=== PATIENT | male | born 1940 | race Caucasian/White ===

== ENCOUNTER 2016-06-10 10:36 | Emergency (ER) | payer MEDICARE, OTHER ==
[~2016-06-10 10:36] MED LIST: ACET500C PO; ASPI81TA83 OR; ASPI81TA85 PO; CALCIUM/VITAMIN D PO; CALCTAB28 PO; CHLO125TA PO; CHLORTHALIDONE PO; CO Q200C PO; COLA100C PO; COLA100C2 PO; COQ10 PO; DIGO0.12 PO; ECOT325T5 PO; ELIQ5TAB PO; GARLPOW PO; GLUC500T3 PO; GLUCTAB6 PO; KEPP500T6 PO; LISI20TA5 PO; LISI40TAB PO; METF500T PO; METFORMIN PO; MULTIVIT PO; NITR0.4S SL; NITR4TASL SL; PLAV75TA2 OR; PRAV20TA2 PO; PRAVASTATIN PO; SPIR25TA2 PO; SPIRPOW PO; VIMP100T PO; VITMTA PO; WARF-20 PO; WARF-58 PO
[2016-06-10 12:20] LABS: BASO % 0.5 % (0.0-1.0); EOS # 0.4 K/mm3 (0.0-0.50); EOS % 3.7 % (0.0-3.0); LARGE UNSTAINED CELL # 0.2 K/mm3 (0.0-0.4); LARGE UNSTAINED CELL % 1.6 % (0.0-4.0); LYMPH # 3.2 K/mm3 (1.5-4.5); MEAN CORPUSCULAR HGB CONC 35.8 g/dl (32.0-36.5); MEAN CORPUSCULAR VOLUME 83.9 fl (80.0-96.0); MONO # 0.7 K/mm3 (0.0-0.8); MONO % 6.5 % (0.0-5.0); NEUTROPHILS # 5.8 K/mm3 (1.8-7.7); NEUTROPHILS % 57.8 % (36.0-66.0); PLATELET COUNT, AUTOMATED 159 k/mm3 (150-450); RED CELL DISTRIBUTION WIDTH 13.2 % (11.5-14.5); WHITE BLOOD COUNT 10.1 K/mm3 (4.0-10.0)
[2016-06-10 12:27] LABS: INR 1.08
--- NOTE | 2016-06-10 12:42 | REP ---
CT HEAD WITHOUT CONTRAST: HISTORY: Headache. COMPARISON: 09/13/2015. Areas of decreased attentuation are present in the periventricular white matter. This represents small vessel ischemic disease. There is on intraparenchymal hemorrhage, mass, or midline shift. The ventricular system and cortical sulci as well as subarachnoid space in the posterior fossa are dilated consistent with mild volume loss. There has been resolution of the previously noted subdural fluid collection present over the right cerebral hemisphere. A mel hole is present in the right parietal bone. The visualized sinuses are clear. IMPRESSION: 1. Small vessel ischemic disease. 2. Mild volume loss. Signed by Nestor Melendez MD 06/10/2016 12:43 P
--- NOTE | 2016-06-10 12:55 | EDDOCDS ---
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 Denies visual changes, nausea. Adult Sepsis Screening: The patient does not have new or worsening altered mentation. Patient's respiratory rate is less than 22. Systolic blood pressure is greater than 100. Patient has a qSOFA score of 0- Negative Sepsis Screen. Suicide/Homicide risk assessment- the patient denies having any suicidal and/or homicidal ideations and does not present with any other emotional, behavioral or mental health complaints. Status: Patient is not a patient financial services specialist or dependent. Transition of care: patient was not received from another setting of care. 10:49 Acuity: BILL Level 3 ttb 10:49 Method Of Arrival: Walkin/Carried/Asstd ttb Triage Assessment: 10:56 General: Appears in no apparent distress, well nourished, well groomed, Behavior is ttb appropriate for age, cooperative, pleasant. Pain: Location: frontal headache Pain currently is 7 out of 10 on a pain scale. Neurological: Level of Consciousness is awake, alert, Moves all extremities. Speech is normal, Facial symmetry appears normal, Denies weakness blurred vision dizziness, numbness photophobia diplopia, Reports headache. Cardiovascular: Chest pain is denied. Respiratory: No deficits noted. Airway is patent Respiratory effort is even, unlabored. GI: Denies nausea, vomiting, pain. Derm: Skin is normal. Injury Description: No known injury. Historical: - Allergies: no known allergies; - Home Meds: 1. Eliquis 5 mg oral tab 1 tab 2 times per day (Last dose: 06/09/2016 20:00) 2. Co Q-10 200 mg oral cap daily (Last dose: 06/09/2016 08:00) 3. metformin 500 mg Oral tab 1 tab daily (Last dose: 06/09/2016 08:00) 4. aspirin 81 mg Oral chew 1 tab once daily 5. Calcium + Vitamin D Oral 300 mg twice a day 6. spironolactone 12.5 mg Oral once daily (Last dose: 06/09/2016 08:00) 7. multivitamin Oral tab 1 tab daily (Last dose: 06/09/2016 08:00) 8. Coumadin 4 mg wednesday and 3 mg of the ,stopped coumadin on Oral 9. digoxin 125 mcg Oral tab 1 tab once daily (Last dose: 06/09/2016 08:00) 10. NitroQuick SL 0.4 mg as needed (Last dose: Unknown) 11. pravastatin 60 mg oral nightly (Last dose: 06/09/2016 20:00) 12. Keppra 500 mg Oral tab 1 tab 2 times per day 13. lisinopril 40 mg Oral tab 1 tab nightly (Last dose: 06/09/2016 20:00) 14. glucosamine-chondroitin 1,500-1,200 mg/30 mL oral liqd daily (Last dose: 06/09/2016 20:00) 15. Chlorthalidone 12.5 mg Oral once daily (Last dose: 06/09/2016 20:00) 16. Colace 100 mg oral cap 1 cap once daily 17. magnesium oxide 400 mg Oral cap daily (Last dose: 06/09/2016 20:00) - PMHx: TIA; Hypertension; Hypercholesterolemia; Diabetes - NIDDM: controlled; CAD; Atrial Fib; "brain bleed"; - PSHx: CABG; Mitral Valve Repair; pacer; mel hole July 2015; - Social history: Smoking status: Patient states was never smoker of tobacco. Patient/guardian denies using alcohol, street drugs, No barriers to communication noted, The patient speaks fluent Scottish, Speaks appropriately for age. - Family history: Not pertinent. - : The pt / caregiver states he / she is on anticoagulants: Eliquis Home medication list is obtained from the patient. - Exposure Risk Screening:: None identified. Screenin:53 Screening information is obtained from the patient. Fall risk: No risks identified. ml6 Assistance ADL's: requires no assistance with activities of daily living. Abuse/DV Screen: The patient / caregiver reports he/she is: not in a situation that causes fear, pain or injury. Nutritional screening: No deficits noted. Advance Directives: Currently, there is no health care proxy. home support is adequate. Assessment: 11:02 General: Appears in no apparent distress, comfortable, Behavior is appropriate for age, ml6 cooperative. Pain: Location: forehead Pain currently is 6 out of 10 on a pain scale. Pain does not radiate. Quality of pain is described as aching, Pain began 3 hours ago Is continuous. Neurological: No deficits noted. Level of Consciousness is awake, alert, Oriented to person, place, time, Relationship Manager are equal bilaterally Moves all extremities. Full function Gait is steady, Speech is normal, Facial symmetry appears normal, Pupils are PERRLA. Cardiovascular: No deficits noted. Respiratory: No deficits noted. 12:00 Reassessment: Patient appears in no apparent distress at this time. Patient denies pain ml6 at this time. Patient states feeling better. Patient states symptoms have improved. 12:53 General: Appears in no apparent distress, comfortable, Behavior is appropriate for age, ml6 cooperative. Pain: Denies pain. Neurological: No deficits noted. Level of Consciousness is awake, alert, Oriented to person, place, time, Relationship Manager are equal bilaterally Moves all extremities. Full function Gait is steady, Speech is normal, Facial symmetry appears normal, Pupils are PERRLA. Cardiovascular: No deficits noted. Capillary refill < 3 seconds is brisk in bilateral fingers toes. Respiratory: No deficits noted. Airway is patent Respiratory effort is even, unlabored, Respiratory pattern is regular, symmetrical, Breath sounds are clear bilaterally. GI: No deficits noted. Vital Signs: 10:42 BP 151 / 77 RA Sitting (auto/reg); Pulse 75; Resp 18; Temp 97.0(O); Pulse Ox 98% on jrd R/A; Weight 90.72 kg (R); Height 5 ft. 10 in. (177.80 cm) (R); Pain 8/10; 10:42 Body Mass Index 28.70 (90.72 kg, 177.80 cm) [facility] Vitals: 10:42 Log In Time: June 10, 2016 at 10:28. [facility] ED Course: 10:42 Patient visited by Hayder Greenwood PCA. jrd 10:42 Patient moved to Waiting jrd 10:43 Patient visited by Hayder Greenwood PCA. jrd 10:43 Patient moved to Pre RCE jrd 10:51 Triage Initiated ttb 10:57 Patient moved to Triage 2 ttb 11:25 [facility] Payment Agreement was scanned into [employer] and attached to record. lg 11:34 Patient moved to 10 cc10 11:45 Patient visited by Jennifer Myrick RN. ms18 11:45 Accompanied by Significant Other, Patient has correct armband on for positive ms18 identification. Placed in gown. Bed in low position. monitoring manager on. Pulse ox on. NIBP on. Property :Personal belongings accompany Pt. 12:04 Patient visited by Tg Crabtree RN. [facility] [place]:04 Digoxin Level Sent. [facility] [place] 12:04 PTT Sent. [facility] [place] 12:04 PT/INR Sent. [facility] [place] 12:04 BMP Sent. [facility] [place] 12:04 CBC with Diff Sent. [facility] [place] 12:04 Inserted saline lock: 20 gauge in right antecubital area and blood collected. The [facility] [place] patient tolerated the procedure well. Labs drawn. (by ED staff). Sent per order to lab. 12:28 William Christensen FNP is [facility]. ke 12:28 Patient visited by William Christensen FNP. ke 12:28 Patient visited by William Christensen FNP. ke 12:51 Discontinued IV bleeding controlled, pressure dressing applied, No redness/swelling at ml6 site. No procedures done that require assistance. 12:52 CT Head Without Contrast Returned. EDMS 12:53 Discontinued IV bleeding controlled, pressure dressing applied, No redness/swelling at ml6 site. 12:54 The patient / caregiver is instructed regarding the plan of care and ED course. ml6 Order Results: Lab Order: CBC with Diff; SPEC'M 06/10/16 12:01 Test: WHITE BLOOD COUNT; Value: 10.1; Range: 4.0-10.0; Abnormal: Above high normal; Units: K/mm3; Status: F Test: RED BLOOD COUNT; Value: 5.51; Range: 4.30-6.10; Units: M/mm3; Status: F Test: HEMOGLOBIN; Value: 16.6; Range: 14.0-18.0; Units: g/dl; Status: F Test: HEMATOCRIT; Value: 46.3; Range: 42.0-52.0; Units: %; Status: F Test: MEAN CORPUSCULAR VOLUME; Value: 83.9; Range: 80.0-96.0; Units: fl; Status: F Test: MEAN CORPUSCULAR HEMOGLOBIN; Value: 30.0; Range: 27.0-33.0; Units: pg; Status: F Test: MEAN CORPUSCULAR HGB CONC; Value: 35.8; Range: 32.0-36.5; Units: g/dl; Status: F Test: RED CELL DISTRIBUTION WIDTH; Value: 13.2; Range: 11.5-14.5; Units: %; Status: F Test: PLATELET COUNT, AUTOMATED; Value: 159; Range: 150-450; Units: k/mm3; Status: F Test: NEUTROPHILS %; Value: 57.8; Range: 36.0-66.0; Units: %; Status: F Test: LYMPH %; Value: 30.0; Range: 24.0-44.0; Units: %; Status: F Test: MONO %; Value: 6.5; Range: 0.0-5.0; Abnormal: Above high normal; Units: %; Status: F Test: EOS %; Value: 3.7; Range: 0.0-3.0; Abnormal: Above high normal; Units: %; Status: F Test: BASO %; Value: 0.5; Range: 0.0-1.0; Units: %; Status: F Test: LARGE UNSTAINED CELL %; Value: 1.6; Range: 0.0-4.0; Units: %; Status: F Test: NEUTROPHILS #; Value: 5.8; Range: 1.8-7.7; Units: K/mm3; Status: F Test: LYMPH #; Value: 3.2; Range: 1.5-4.5; Units: K/mm3; Status: F Test: MONO #; Value: 0.7; Range: 0.0-0.8; Units: K/mm3; Status: F Test: EOS #; Value: 0.4; Range: 0.0-0.50; Units: K/mm3; Status: F Test: BASO #; Value: 0.0; Range: 0.0-0.2; Units: K/mm3; Status: F Test: LARGE UNSTAINED CELL #; Value: 0.2; Range: 0.0-0.4; Units: K/mm3; Status: F Lab Order: PT/INR; SPEC'M 06/10/16 12:01 Test: PROTHROMBIN TIME; Value: 14.1; Range: 12.3-14.5; Units: SECONDS; Status: F Test: INR; Value: 1.08; Status: F Test Note: ; THERAPUTIC HUMAN INR VALUES INDICATIONS NORMAL RANGES PROPHYLAXIS/TREATMENT OF: VENOUS THROMBOSIS 2.0-3.0 PULMONARY EMBOLISM 2.0-3.0 PREVENTION OF SYSTEMIC EMBOLISM FROM: TISSUE HEART VALVES 2.0-3.0 ACUTE MYOCARDIAL INFARCTION 2.0-3.0 VALVULAR HEART DISEASE 2.0-3.0 ATRIAL FIBRILLATION 2.0-3.0 MECHANICAL VALVES(HIGH RISK) 2.5-3.5 RECURRENT MYOCARDIAL INFARCTION 2.5-3.5 Lab Order: PTT; SPEC'M 06/10/16 12:01 Test: PARTIAL THROMBOPLASTIN TIME; Value: 29.9; Range: 26.6-37.1; Units: SECONDS; Status: F Radiology Order: CT Head Without Contrast Test: CT Head Without Contrast REASON FOR EXAMINATION: headache eval for ich; CT HEAD WITHOUT CONTRAST:; ; HISTORY: Headache.; ; COMPARISON: 09/13/2015.; ; Areas of decreased attentuation are present in the periventricular white matter.; This represents small vessel ischemic disease. There is on intraparenchymal; hemorrhage, mass, or midline shift. The ventricular system and cortical sulci as; well as subarachnoid space in the posterior fossa are dilated consistent with; mild volume loss. There has been resolution of the previously noted subdural; fluid collection present over the right cerebral hemisphere. A mel hole is; present in the right parietal bone. The visualized sinuses are clear.; ; IMPRESSION:; ; 1. Small vessel ischemic disease.; ; 2. Mild volume loss.; ; ; Signed by; Nestor Melendez MD 06/10/2016 12:43 P; Outcome: 12:41 Discharge ordered by Provider. leatha 12:54 Discharge Assessment: patient administered narcotics - no. The following High Risk ml6 Discharge criteria are identified: None. Discharged to home ambulatory, with significant other. Condition: stable. Discharge instructions given to patient, Instructed on discharge instructions, follow up and referral plans. medication usage, Demonstrated understanding of instructions, medications, Pt was receptive of discharge instructions/ teaching. Prescriptions given X 1. No special radiology studies were completed. 12:54 Patient left the ED. ml6 Signatures: Dispatcher [employer] EDMS Tg Crabtree, RN RN Althea Kumar, William Blackmon lg, INDUSTRIAL TRUCK DRIVER INDUSTRIAL TRUCK DRIVER Michael Barber RN RN mlb1 Obi Herman RN RN ml6 Kanika Leung, RN RN ttb Leno Davis, PA-C PA-C Jennifer Ashford RN RN ms18 Hayder Greenwood PCA SAMPLE GRADER jrd MTDD
--- NOTE | 2016-06-10 12:55 | EDDOCDS ---
Physician Documentation [facility] Name: iLam Nayak Age: 75 yrs Sex: Male : 1940 Arrival Date: 06/10/2016 Time: 10:36 Bed 10 Private MD: Disposition: 06/10/16 12:41 Discharged to Home/Self Care. Impression: Headache, Acute frontal sinusitis. - Condition is Stable. - Discharge Instructions: General Headache Without Cause, Sinusitis, Adult. - Prescriptions for Mucinex 600 mg - take 1 tablet by ORAL route 2 times per day; 30 tablet. - Medication Reconciliation, Local Pharmacy Hours form. - Follow up: Private Physician; When: 4 - 5 days; Reason: Recheck today's complaints, Continuance of care. - Problem is an ongoing problem. - Symptoms are unchanged. Historical: - Allergies: no known allergies; - Home Meds: 1. Eliquis 5 mg oral tab 1 tab 2 times per day (Last dose: 06/09/2016 20:00) 2. Co Q-10 200 mg oral cap daily (Last dose: 06/09/2016 08:00) 3. metformin 500 mg Oral tab 1 tab daily (Last dose: 06/09/2016 08:00) 4. aspirin 81 mg Oral chew 1 tab once daily 5. Calcium + Vitamin D Oral 300 mg twice a day 6. spironolactone 12.5 mg Oral once daily (Last dose: 06/09/2016 08:00) 7. multivitamin Oral tab 1 tab daily (Last dose: 06/09/2016 08:00) 8. Coumadin 4 mg wednesday and 3 mg the ,stopped coumadin on Oral 9. digoxin 125 mcg Oral tab 1 tab once daily (Last dose: 06/09/2016 08:00) 10. NitroQuick SL 0.4 mg as needed (Last dose: Unknown) 11. pravastatin 60 mg oral nightly (Last dose: 06/09/2016 20:00) 12. Keppra 500 mg Oral tab 1 tab 2 times per day 13. lisinopril 40 mg Oral tab 1 tab nightly (Last dose: 06/09/2016 20:00) 14. glucosamine-chondroitin 1,500-1,200 mg/30 mL oral liqd daily (Last dose: 06/09/2016 20:00) 15. Chlorthalidone 12.5 mg Oral once daily (Last dose: 06/09/2016 20:00) 16. Colace 100 mg oral cap 1 cap once daily 17. magnesium oxide 400 mg Oral cap daily (Last dose: 06/09/2016 20:00) - PMHx: TIA; Hypertension; Hypercholesterolemia; Diabetes - NIDDM: controlled; CAD; Atrial Fib; "brain bleed"; - PSHx: CABG; Mitral Valve Repair; pacer; mel hole July 2015; - Social history: Smoking status: Patient states was never smoker of tobacco. Patient/guardian denies using alcohol, street drugs, No barriers to communication noted, The patient speaks fluent Czech, Speaks appropriately for age. - Family history: Not pertinent. - : The pt / caregiver states he / she is on anticoagulants: Eliqu Home medication list is obtained from the patient. - Exposure Risk Screening:: None identified. Vital Signs: 06/10 10:42 BP 151 / 77 RA Sitting (auto/reg); Pulse 75; Resp 18; Temp 97.0(O); Pulse Ox 98% on jrd R/A; Weight 90.72 kg / 200 lbs (R); Height 5 ft. 10 in. (177.80 cm) (R); Pain 8/10; 10:42 Body Mass Index 28.70 (90.72 kg, 177.80 cm) jrd MDM: 11:25 [facility] Payment Agreement was scanned into [employer] and attached to record. lg 11:38 IV Saline Lock ordered. br1 11:38 Production Generalist/Pulse Ox/q 30 min VS ordered. br1 11:39 CT Head Without Contrast Ordered. EDMS 11:39 CBC with Diff Ordered. EDMS 11:39 BMP Ordered. EDMS 11:39 PT/INR Ordered. EDMS 11:39 PTT Ordered. EDMS 11:39 Digoxin Level Ordered. EDMS Signatures: Dispatcher [employer] EDMS Althea Ventura, Reg Reg lg William Christensen, PRESS SETUP OPERATOR PRESS SETUP OPERATOR Michael Barber RN RN mlb1 Jose Kelly MD MD br1 Obi Herman RN RN ml6 Kanika Leung RN RN ttb The chart was reviewed and I authenticate all verbal orders and agree with the evaluation and treatment provided.Attachments: 11:25 [facility] Payment Agreement lg MTDD
[2016-06-10 13:01] LABS: ANION GAP 8 MEQ/L (8-16); BLOOD UREA NITROGEN 17 MG/DL (7-18); CALCIUM LEVEL 9.6 MG/DL (8.8-10.2); CARBON DIOXIDE LEVEL 27 MEQ/L (21-32); CHLORIDE LEVEL 105 MEQ/L (98-107); CREATININE FOR GFR 1.13 MG/DL (0.70-1.30); DIGOXIN LEVEL 0.6 NG/ML (0.5-2.0); GLOMERULAR FILTRATION RATE > 60.0 (>42); GLUCOSE, FASTING 140 MG/DL (83-110); POTASSIUM SERUM 4.4 MEQ/L (3.5-5.1); SODIUM LEVEL 140 MEQ/L (136-145)
--- NOTE | 2016-06-12 13:55 | EDDOCDS ---
Physician Documentation [facility] Name: Liam Nayak Age: 75 yrs Sex: Male : 1940 Arrival Date: 06/10/2016 Time: 10:36 Bed 10 Private MD: Disposition: 06/10/16 12:41 Discharged to Home/Self Care. Impression: Headache, Acute frontal sinusitis. - Condition is Stable. - Discharge Instructions: General Headache Without Cause, Sinusitis, Adult. - Prescriptions for Mucinex 600 mg - take 1 tablet by ORAL route 2 times per day; 30 tablet. - Medication Reconciliation, Local Pharmacy Hours form. - Follow up: Private Physician; When: 4 - 5 days; Reason: Recheck today's complaints, Continuance of care. - Problem is an ongoing problem. - Symptoms are unchanged. Historical: - Allergies: no known allergies; - Home Meds: 1. Eliquis 5 mg oral tab 1 tab 2 times per day (Last dose: 06/09/2016 20:00) 2. Co Q-10 200 mg oral cap daily (Last dose: 06/09/2016 08:00) 3. metformin 500 mg Oral tab 1 tab daily (Last dose: 06/09/2016 08:00) 4. aspirin 81 mg Oral chew 1 tab once daily 5. Calcium + Vitamin D Oral 300 mg twice a day 6. spironolactone 12.5 mg Oral once daily (Last dose: 06/09/2016 08:00) 7. multivitamin Oral tab 1 tab daily (Last dose: 06/09/2016 08:00) 8. Coumadin 4 mg wednesday and 3 mg the ,stopped coumadin on Oral 9. digoxin 125 mcg Oral tab 1 tab once daily (Last dose: 06/09/2016 08:00) 10. NitroQuick SL 0.4 mg as needed (Last dose: Unknown) 11. pravastatin 60 mg oral nightly (Last dose: 06/09/2016 20:00) 12. Keppra 500 mg Oral tab 1 tab 2 times per day 13. lisinopril 40 mg Oral tab 1 tab nightly (Last dose: 06/09/2016 20:00) 14. glucosamine-chondroitin 1,500-1,200 mg/30 mL oral liqd daily (Last dose: 06/09/2016 20:00) 15. Chlorthalidone 12.5 mg Oral once daily (Last dose: 06/09/2016 20:00) 16. Colace 100 mg oral cap 1 cap once daily 17. magnesium oxide 400 mg Oral cap daily (Last dose: 06/09/2016 20:00) - PMHx: TIA; Hypertension; Hypercholesterolemia; Diabetes - NIDDM: controlled; CAD; Atrial Fib; "brain bleed"; - PSHx: CABG; Mitral Valve Repair; pacer; mel hole July 2015; - Social history: Smoking status: Patient states was never smoker of tobacco. Patient/guardian denies using alcohol, street drugs, No barriers to communication noted, The patient speaks fluent Japanese, Speaks appropriately for age. - Family history: Not pertinent. - : The pt / caregiver states he / she is on anticoagulants: [employer] Home medication list is obtained from the patient. - Exposure Risk Screening:: None identified. Vital Signs: 06/10 10:42 BP 151 / 77 RA Sitting (auto/reg); Pulse 75; Resp 18; Temp 97.0(O); Pulse Ox 98% on jrd R/A; Weight 90.72 kg / 200 lbs (R); Height 5 ft. 10 in. (177.80 cm) (R); Pain 8/10; 10:42 Body Mass Index 28.70 (90.72 kg, 177.80 cm) jrd MDM: 11:25 [facility] [place] was scanned into [employer] and attached to record. lg 11:38 IV Saline Lock ordered. br1 11:38 Meteorological Engineer/Pulse Ox/q 30 min VS ordered. br1 11:39 CT Head Without Contrast Ordered. EDMS 11:39 CBC with Diff Ordered. EDMS 11:39 BMP Ordered. EDMS 11:39 PT/INR Ordered. EDMS 11:39 PTT Ordered. EDMS 11:39 Digoxin Level Ordered. EDMS 15:36 T-Sheet-- Draft Copy was scanned into [employer] and attached to record. gb Signatures: Dispatcher [employer] EDMS Domenica Walker, Reg Reg gb Althea Ventura, Reg Reg lg William Christensen, REFRIGERATION UNIT REPAIRER REFRIGERATION UNIT REPAIRER Michael Barber RN RN mlb1 Jose Kelly MD MD br1 Obi Herman, RN RN ml6 Kanika Leung RN RN ttb The chart was reviewed and I authenticate all verbal orders and agree with the evaluation and treatment provided.Attachments: 11:25 [facility] [place] Agreement lg 15:36 T-Sheet-- Draft Copy gb Chart Complete MTDD
--- NOTE | 2016-06-12 13:55 | EDDOCDS ---
Physician Documentation [facility] Name: Liam Nayak Age: 75 yrs Sex: Male : 1940 Arrival Date: 06/10/2016 Time: 10:36 Bed 10 Private MD: Disposition: 06/10/16 12:41 Discharged to Home/Self Care. Impression: Headache, Acute frontal sinusitis. - Condition is Stable. - Discharge Instructions: General Headache Without Cause, Sinusitis, Adult. - Prescriptions for Mucinex 600 mg - take 1 tablet by ORAL route 2 times per day; 30 tablet. - Medication Reconciliation, Local Pharmacy Hours form. - Follow up: Private Physician; When: 4 - 5 days; Reason: Recheck today's complaints, Continuance of care. - Problem is an ongoing problem. - Symptoms are unchanged. Historical: - Allergies: no known allergies; - Home Meds: 1. Eliquis 5 mg oral tab 1 tab 2 times per day (Last dose: 06/09/2016 20:00) 2. Co Q-10 200 mg oral cap daily (Last dose: 06/09/2016 08:00) 3. metformin 500 mg Oral tab 1 tab daily (Last dose: 06/09/2016 08:00) 4. aspirin 81 mg Oral chew 1 tab once daily 5. Calcium + Vitamin D Oral 300 mg twice a day 6. spironolactone 12.5 mg Oral once daily (Last dose: 06/09/2016 08:00) 7. multivitamin Oral tab 1 tab daily (Last dose: 06/09/2016 08:00) 8. Coumadin 4 mg wednesday and 3 mg the ,stopped coumadin on Oral 9. digoxin 125 mcg Oral tab 1 tab once daily (Last dose: 06/09/2016 08:00) 10. NitroQuick SL 0.4 mg as needed (Last dose: Unknown) 11. pravastatin 60 mg oral nightly (Last dose: 06/09/2016 20:00) 12. Keppra 500 mg Oral tab 1 tab 2 times per day 13. lisinopril 40 mg Oral tab 1 tab nightly (Last dose: 06/09/2016 20:00) 14. glucosamine-chondroitin 1,500-1,200 mg/30 mL oral liqd daily (Last dose: 06/09/2016 20:00) 15. Chlorthalidone 12.5 mg Oral once daily (Last dose: 06/09/2016 20:00) 16. Colace 100 mg oral cap 1 cap once daily 17. magnesium oxide 400 mg Oral cap daily (Last dose: 06/09/2016 20:00) - PMHx: TIA; Hypertension; Hypercholesterolemia; Diabetes - NIDDM: controlled; CAD; Atrial Fib; "brain bleed"; - PSHx: CABG; Mitral Valve Repair; pacer; mel hole July 2015; - Social history: Smoking status: Patient states was never smoker of tobacco. Patient/guardian denies using alcohol, street drugs, No barriers to communication noted, The patient speaks fluent Vietnamese, Speaks appropriately for age. - Family history: Not pertinent. - : The pt / caregiver states he / she is on anticoagulants: [employer] Home medication list is obtained from the patient. - Exposure Risk Screening:: None identified. Vital Signs: 06/10 10:42 BP 151 / 77 RA Sitting (auto/reg); Pulse 75; Resp 18; Temp 97.0(O); Pulse Ox 98% on jrd R/A; Weight 90.72 kg / 200 lbs (R); Height 5 ft. 10 in. (177.80 cm) (R); Pain 8/10; 10:42 Body Mass Index 28.70 (90.72 kg, 177.80 cm) jrd MDM: 11:25 [facility] [place] Agreement was scanned into [employer] and attached to record. lg 11:38 IV Saline Lock ordered. br1 11:38 Wildlife Veterinarian/Pulse Ox/q 30 min VS ordered. br1 11:39 CT Head Without Contrast Ordered. EDMS 11:39 CBC with Diff Ordered. EDMS 11:39 BMP Ordered. EDMS 11:39 PT/INR Ordered. EDMS 11:39 PTT Ordered. EDMS 11:39 Digoxin Level Ordered. EDMS 15:36 T-Sheet-- Draft Copy was scanned into [employer] and attached to record. gb Signatures: Dispatcher [employer] EDMS Domenica Walker, Reg Reg gb Althea Ventura, Reg Reg lg William Christensen, ASSISTANT BOOKKEEPER ASSISTANT BOOKKEEPER Michael Barber RN RN mlb1 Jose Kelly MD MD br1 Obi Herman, RN RN ml6 Kanika Leung RN RN ttb The chart was reviewed and I authenticate all verbal orders and agree with the evaluation and treatment provided.Attachments: 11:25 [facility] [place] Agreement lg 15:36 T-Sheet-- Draft Copy gb Chart Complete MTDD
--- NOTE | 2016-06-12 13:55 | EDDOCDS ---
Nurse's Notes [facility] Name: Liam Nayak Age: 75 yrs Sex: Male : 1940 Arrival Date: 06/10/2016 Time: 10:36 Bed 10 Private MD: Diagnosis: Headache;Acute frontal sinusitis Presentation: 06/10 10:49 Presenting complaint: Patient states: pt concerned with frontal headache 2 weeks -- ttb states it feels the same as when he had a "brain bleed" last year ( which required surgical intervention). Denies visual changes, nausea. Adult Sepsis Screening: The patient does not have new or worsening altered mentation. Patient's respiratory rate is less than 22. Systolic blood pressure is greater than 100. Patient has a qSOFA score of 0- Negative Sepsis Screen. Suicide/Homicide risk assessment- the patient denies having any suicidal and/or homicidal ideations and does not present with any other emotional, behavioral or mental health complaints. Status: Patient is not a banking services officer or dependent. Transition of care: patient was not received from another setting of care. 10:49 Acuity: BILL Level 3 ttb 10:49 Method Of Arrival: Walkin/Carried/Asstd ttb Triage Assessment: 10:56 General: Appears in no apparent distress, well nourished, well groomed, Behavior is ttb appropriate for age, cooperative, pleasant. Pain: Location: frontal headache Pain currently is 7 out of 10 on a pain scale. Neurological: Level of Consciousness is awake, alert, Moves all extremities. Speech is normal, Facial symmetry appears normal, Denies weakness blurred vision dizziness, numbness photophobia diplopia, Reports headache. Cardiovascular: Chest pain is denied. Respiratory: No deficits noted. Airway is patent Respiratory effort is even, unlabored. GI: Denies nausea, vomiting, pain. Derm: Skin is normal. Injury Description: No known injury. Historical: - Allergies: no known allergies; - Home Meds: 1. Eliquis 5 mg oral tab 1 tab 2 times per day (Last dose: 06/09/2016 20:00) 2. Co Q-10 200 mg oral cap daily (Last dose: 06/09/2016 08:00) 3. metformin 500 mg Oral tab 1 tab daily (Last dose: 06/09/2016 08:00) 4. aspirin 81 mg Oral chew 1 tab once daily 5. Calcium + Vitamin D Oral 300 mg twice a day 6. spironolactone 12.5 mg Oral once daily (Last dose: 06/09/2016 08:00) 7. multivitamin Oral tab 1 tab daily (Last dose: 06/09/2016 08:00) 8. Coumadin 4 mg wednesday and 3 mg of the ,stopped coumadin on Oral 9. digoxin 125 mcg Oral tab 1 tab once daily (Last dose: 06/09/2016 08:00) 10. NitroQuick SL 0.4 mg as needed (Last dose: Unknown) 11. pravastatin 60 mg oral nightly (Last dose: 06/09/2016 20:00) 12. Keppra 500 mg Oral tab 1 tab 2 times per day 13. lisinopril 40 mg Oral tab 1 tab nightly (Last dose: 06/09/2016 20:00) 14. glucosamine-chondroitin 1,500-1,200 mg/30 mL oral liqd daily (Last dose: 06/09/2016 20:00) 15. Chlorthalidone 12.5 mg Oral once daily (Last dose: 06/09/2016 20:00) 16. Colace 100 mg oral cap 1 cap once daily 17. magnesium oxide 400 mg Oral cap daily (Last dose: 06/09/2016 20:00) - PMHx: TIA; Hypertension; Hypercholesterolemia; Diabetes - NIDDM: controlled; CAD; Atrial Fib; "brain bleed"; - PSHx: CABG; Mitral Valve Repair; pacer; mel hole July 2015; - Social history: Smoking status: Patient states was never smoker of tobacco. Patient/guardian denies using alcohol, street drugs, No barriers to communication noted, The patient speaks fluent [place], Speaks appropriately for age. - Family history: Not pertinent. - : The pt / caregiver states he / she is on anticoagulants: Eliquis Home medication list is obtained from the patient. - Exposure Risk Screening:: None identified. Screenin:53 Screening information is obtained from the patient. Fall risk: No risks identified. ml6 Assistance ADL's: requires no assistance with activities of daily living. Abuse/DV Screen: The patient / caregiver reports he/she is: not in a situation that causes fear, pain or injury. Nutritional screening: No deficits noted. Advance Directives: Currently, there is no health care proxy. home support is adequate. Assessment: 11:02 General: Appears in no apparent distress, comfortable, Behavior is appropriate for age, ml6 cooperative. Pain: Location: forehead Pain currently is 6 out of 10 on a pain scale. Pain does not radiate. Quality of pain is described as aching, Pain began 3 hours ago Is continuous. Neurological: No deficits noted. Level of Consciousness is awake, alert, Oriented to person, place, time, Strip Machine Operator are equal bilaterally Moves all extremities. Full function Gait is steady, Speech is normal, Facial symmetry appears normal, Pupils are PERRLA. Cardiovascular: No deficits noted. Respiratory: No deficits noted. 12:00 Reassessment: Patient appears in no apparent distress at this time. Patient denies pain ml6 at this time. Patient states feeling better. Patient states symptoms have improved. 12:53 General: Appears in no apparent distress, comfortable, Behavior is appropriate for age, ml6 cooperative. Pain: Denies pain. Neurological: No deficits noted. Level of Consciousness is awake, alert, Oriented to person, place, time, Strip Machine Operator are equal bilaterally Moves all extremities. Full function Gait is steady, Speech is normal, Facial symmetry appears normal, Pupils are PERRLA. Cardiovascular: No deficits noted. Capillary refill < 3 seconds is brisk in bilateral fingers toes. Respiratory: No deficits noted. Airway is patent Respiratory effort is even, unlabored, Respiratory pattern is regular, symmetrical, Breath sounds are clear bilaterally. GI: No deficits noted. Vital Signs: 10:42 BP 151 / 77 RA Sitting (auto/reg); Pulse 75; Resp 18; Temp 97.0(O); Pulse Ox 98% on jrd R/A; Weight 90.72 kg (R); Height 5 ft. 10 in. (177.80 cm) (R); Pain 8/10; 10:42 Body Mass Index 28.70 (90.72 kg, 177.80 cm) [facility] Vitals: 10:42 Log In Time: June 10, 2016 at 10:28. [facility] ED Course: 10:42 Patient visited by Hayder Greenwood PCA. jrd 10:42 Patient moved to Waiting jrd 10:43 Patient visited by Hayder Greenwood PCA. jrd 10:43 Patient moved to Pre RCE jrd 10:51 Triage Initiated ttb 10:57 Patient moved to Triage 2 ttb 11:25 [facility] Payment Agreement was scanned into [facility] and attached to record. lg 11:34 Patient moved to 10 cc10 11:45 Patient visited by Jennifer Myrick RN. ms18 11:45 Accompanied by Significant Other, Patient has correct armband on for positive ms18 identification. Placed in gown. Bed in low position. steam heating installer on. Pulse ox on. NIBP on. Property :Personal belongings accompany Pt. 12:04 Patient visited by Tg Crabtree RN. [facility] 12:04 Digoxin Level Sent. [facility] 12:04 PTT Sent. [facility] 12:04 PT/INR Sent. [facility] 12:04 BMP Sent. [facility] 12:04 CBC with Diff Sent. [facility] 12:04 Inserted saline lock: 20 gauge in right antecubital area and blood collected. The [facility] patient tolerated the procedure well. Labs drawn. (by ED staff). Sent per order to lab. 12:28 [facility] ke 12:28 Patient visited by William Christensen FNP. ke 12:28 Patient visited by William Christensen FNP. ke 12:51 Discontinued IV bleeding controlled, pressure dressing applied, No redness/swelling at ml6 site. No procedures done that require assistance. 12:52 CT Head Without Contrast Returned. EDMS 12:53 Discontinued IV bleeding controlled, pressure dressing applied, No redness/swelling at ml6 site. 12:54 The patient / caregiver is instructed regarding the plan of care and ED course. ml6 15:36 T-Sheet-- Draft Copy was scanned into [facility] and attached to record. gb Order Results: Lab Order: CBC with Diff; SPEC'M 06/10/16 12:01 Test: WHITE BLOOD COUNT; Value: 10.1; Range: 4.0-10.0; Abnormal: Above high normal; Units: K/mm3; Status: F Test: RED BLOOD COUNT; Value: 5.51; Range: 4.30-6.10; Units: M/mm3; Status: F Test: HEMOGLOBIN; Value: 16.6; Range: 14.0-18.0; Units: g/dl; Status: F Test: HEMATOCRIT; Value: 46.3; Range: 42.0-52.0; Units: %; Status: F Test: MEAN CORPUSCULAR VOLUME; Value: 83.9; Range: 80.0-96.0; Units: fl; Status: F Test: MEAN CORPUSCULAR HEMOGLOBIN; Value: 30.0; Range: 27.0-33.0; Units: pg; Status: F Test: MEAN CORPUSCULAR HGB CONC; Value: 35.8; Range: 32.0-36.5; Units: g/dl; Status: F Test: RED CELL DISTRIBUTION WIDTH; Value: 13.2; Range: 11.5-14.5; Units: %; Status: F Test: PLATELET COUNT, AUTOMATED; Value: 159; Range: 150-450; Units: k/mm3; Status: F Test: NEUTROPHILS %; Value: 57.8; Range: 36.0-66.0; Units: %; Status: F Test: LYMPH %; Value: 30.0; Range: 24.0-44.0; Units: %; Status: F Test: MONO %; Value: 6.5; Range: 0.0-5.0; Abnormal: Above high normal; Units: %; Status: F Test: EOS %; Value: 3.7; Range: 0.0-3.0; Abnormal: Above high normal; Units: %; Status: F Test: BASO %; Value: 0.5; Range: 0.0-1.0; Units: %; Status: F Test: LARGE UNSTAINED CELL %; Value: 1.6; Range: 0.0-4.0; Units: %; Status: F Test: NEUTROPHILS #; Value: 5.8; Range: 1.8-7.7; Units: K/mm3; Status: F Test: LYMPH #; Value: 3.2; Range: 1.5-4.5; Units: K/mm3; Status: F Test: MONO #; Value: 0.7; Range: 0.0-0.8; Units: K/mm3; Status: F Test: EOS #; Value: 0.4; Range: 0.0-0.50; Units: K/mm3; Status: F Test: BASO #; Value: 0.0; Range: 0.0-0.2; Units: K/mm3; Status: F Test: LARGE UNSTAINED CELL #; Value: 0.2; Range: 0.0-0.4; Units: K/mm3; Status: F Lab Order: BMP; 06/10/16 12:01 Test: GLUCOSE, FASTING; Value: 140; Range: 83-110; Abnormal: Above high normal; Units: MG/DL; Status: F Test: BLOOD UREA NITROGEN; Value: 17; Range: 7-18; Units: MG/DL; Status: F Test: CREATININE FOR GFR; Value: 1.13; Range: 0.70-1.30; Units: MG/DL; Status: F Test: GLOMERULAR FILTRATION RATE; Value: > 60.0; Range: >42; Status: F Test: SODIUM LEVEL; Value: 140; Range: 136-145; Units: MEQ/L; Status: F Test: POTASSIUM SERUM; Value: 4.4; Range: 3.5-5.1; Units: MEQ/L; Status: F Test: CHLORIDE LEVEL; Value: 105; Range: 98-107; Units: MEQ/L; Status: F Test: CARBON DIOXIDE LEVEL; Value: 27; Range: 21-32; Units: MEQ/L; Status: F Test: ANION GAP; Value: 8; Range: 8-16; Units: MEQ/L; Status: F Test: CALCIUM LEVEL; Value: 9.6; Range: 8.8-10.2; Units: MG/DL; Status: F Test Note: ; Units are mL/min/1.73 m2 Chronic Kidney Disease Staging per NKF: Stage I & II GFR >=60 Normal to Mildly Decreased Stage III GFR 30-59 Moderately Decreased Stage IV GFR 15-29 Severely Decreased Stage V GFR <15 Very Little GFR Left ESRD GFR <15 on FERTILIZER LOADER Lab Order: PT/INR; SPEC'06/10/16 12:01 Test: PROTHROMBIN TIME; Value: 14.1; Range: 12.3-14.5; Units: SECONDS; Status: F Test: INR; Value: 1.08; Status: F Test Note: ; THERAPUTIC HUMAN INR VALUES INDICATIONS NORMAL RANGES PROPHYLAXIS/TREATMENT OF: VENOUS THROMBOSIS 2.0-3.0 PULMONARY EMBOLISM 2.0-3.0 PREVENTION OF SYSTEMIC EMBOLISM FROM: TISSUE HEART VALVES 2.0-3.0 ACUTE MYOCARDIAL INFARCTION 2.0-3.0 VALVULAR HEART DISEASE 2.0-3.0 ATRIAL FIBRILLATION 2.0-3.0 MECHANICAL VALVES(HIGH RISK) 2.5-3.5 RECURRENT MYOCARDIAL INFARCTION 2.5-3.5 Lab Order: PTT; SPEC'M 06/10/16 12:01 Test: PARTIAL THROMBOPLASTIN TIME; Value: 29.9; Range: 26.6-37.1; Units: SECONDS; Status: F Lab Order: Digoxin Level; SPEC'M 06/10/16 12:01 Test: DIGOXIN LEVEL; Value: 0.6; Range: 0.5-2.0; Units: NG/ML; Status: F Radiology Order: CT Head Without Contrast Test: CT Head Without Contrast REASON FOR EXAMINATION: headache eval for ich; CT HEAD WITHOUT CONTRAST:; ; HISTORY: Headache.; ; COMPARISON: 09/13/2015.; ; Areas of decreased attentuation are present in the periventricular white matter.; This represents small vessel ischemic disease. There is on intraparenchymal; hemorrhage, mass, or midline shift. The ventricular system and cortical sulci as; well as subarachnoid space in the posterior fossa are dilated consistent with; mild volume loss. There has been resolution of the previously noted subdural; fluid collection present over the right cerebral hemisphere. A mel hole is; present in the right parietal bone. The visualized sinuses are clear.; ; IMPRESSION:; ; 1. Small vessel ischemic disease.; ; 2. Mild volume loss.; ; ; Signed by; Nestor Melendez MD 06/10/2016 12:43 P; Outcome: 12:41 Discharge ordered by Provider. leatha 12:54 Discharge Assessment: patient administered narcotics - no. The following High Risk ml6 Discharge criteria are identified: None. Discharged to home ambulatory, with significant other. Condition: stable. Discharge instructions given to patient, Instructed on discharge instructions, follow up and referral plans. medication usage, Demonstrated understanding of instructions, medications, Pt was receptive of discharge instructions/ teaching. Prescriptions given X 1. No special radiology studies were completed. 12:54 Patient left the ED. ml6 Signatures: Dispatcher [employer] EDMS Tg Crabtree RN RN mcp Barnhardt, Gloria, Reg Reg gb Althea Ventura, Reg Reg lg William Christensen, INDUSTRIAL CLEANER INDUSTRIAL CLEANER Michael Barber RN RN mlb1 Obi Herman RN RN ml6 Kanika Leung, RN RN ttb Leno Davis, PA-C PA-C cc10 Jennifer Myrick,RN RN ms18 Hayder Greenwood, WELL CONTROL INSTRUCTOR WELL CONTROL INSTRUCTOR jrd Chart Complete MTDD
== END 2016-06-10 12:54 | disposition home or self-care (01) ==
LOC: M ED 10:36
DX: J01.10 Acute frontal sinusitis, unspecified (principal); G45.9 Transient cerebral ischemic attack, unspecified; I10 Essential (primary) hypertension; E78.00 Pure hypercholesterolemia, unspecified; E11.9 Type 2 diabetes mellitus without complications; I25.10 Atherosclerotic heart disease of native coronary artery without angina pectoris; I48.91 Unspecified atrial fibrillation; Z95.1 Presence of aortocoronary bypass graft; Z95.0 Presence of cardiac pacemaker; Z95.2 Presence of prosthetic heart valve; Z79.01 Long term (current) use of anticoagulants; Z79.82 Long term (current) use of aspirin; Z79.84 Long term (current) use of oral hypoglycemic drugs; Z79.899 Other long term (current) drug therapy

== ENCOUNTER 2017-08-12 06:32 | Day surgery (SDC) | payer MEDICARE, OTHER ==
[~2017-08-12 06:32] MED LIST changes: -ACET500C PO; -ASPI81TA83 OR; -ASPI81TA85 PO; -CALCIUM/VITAMIN D PO; -CALCTAB28 PO; -CHLO125TA PO; -CHLORTHALIDONE PO; -CO Q200C PO; -COLA100C PO; -COLA100C2 PO; -COQ10 PO; -DIGO0.12 PO; -ECOT325T5 PO; -ELIQ5TAB PO; -GARLPOW PO; -GLUC500T3 PO; -GLUCTAB6 PO; -KEPP500T6 PO; -LISI20TA5 PO; -LISI40TAB PO; -METF500T PO; -METFORMIN PO; -MULTIVIT PO; -NITR0.4S SL; -NITR4TASL SL; -PLAV75TA2 OR; -PRAV20TA2 PO; -PRAVASTATIN PO; +SLF 3 ML SYR IV; -SPIR25TA2 PO; -SPIRPOW PO; -VIMP100T PO; -VITMTA PO; -WARF-20 PO; -WARF-58 PO
[2017-08-12] MEDS: PHENYLEPHRINE 2.5% OPHTH SOL 2ML OD (07:36)
[2017-08-12] MEDS: TROPICAMIDE 1% OPHTH SOLN 2ML OD (07:37)
[2017-08-12] MEDS: OFLOXACIN 0.3 % (OCUFLOX) OPTH SOL 5ML OD (07:37)
[2017-08-12] MEDS: PROPARACAINE 0.5% OPHTH SOL 15ML OD (07:37)
[2017-08-12 07:47] LABS: BEDSIDE GLUCOSE 145 MG/DL (83-110)
[2017-08-12] MEDS ORDERED: fentaNYL 100 MCG/2 ML INJECTION (J3010) As Ordered (08:15)
[2017-08-12] MEDS ORDERED: MIDAZOLAM INJ 2 MG/2 ML VIAL (J2250) As Ordered (08:15)
[2017-08-12] MEDS: POVIDONE-IODINE 5% OPHTH PREP SOL 30ML As Ordered (08:34)
[2017-08-12] MEDS: LIDOCAINE 0.75%/EPINEPHRINE 0.025% IN BSS 1ML SYR INTRACAMERAL (OR ONLY) As Ordered (08:39)
[2017-08-12] MEDS: DUOVISC (0.50ML VISCOAT/0.55ML PROVISC) OPHTH KIT As Ordered (08:39)
[2017-08-12] MEDS: BALANCED SALT IRRIGATION SOLUTION 500ML BAG (FOR OR EYE MACHINE) As Ordered (08:39)
[2017-08-12] MEDS: CEFUROXIME 1MG/0.1ML INTRACAMERAL INJ As Ordered (08:39)
== END 2017-08-12 09:43 | disposition home or self-care (01) ==
LOC: M SDC 06:32
DX: H25.11 Age-related nuclear cataract, right eye (principal); I10 Essential (primary) hypertension; E11.9 Type 2 diabetes mellitus without complications; E78.5 Hyperlipidemia, unspecified; M12.9 Arthropathy, unspecified; I25.10 Atherosclerotic heart disease of native coronary artery without angina pectoris; I34.9 Nonrheumatic mitral valve disorder, unspecified; E03.9 Hypothyroidism, unspecified; M65.332 Trigger finger, left middle finger; R51 Headache; R06.83 Snoring; J32.9 Chronic sinusitis, unspecified; Z88.8 Allergy status to other drugs, medicaments and biological substances; Z79.899 Other long term (current) drug therapy; Z79.84 Long term (current) use of oral hypoglycemic drugs; Z79.01 Long term (current) use of anticoagulants; Z86.73 Personal history of transient ischemic attack (TIA), and cerebral infarction without residual deficits; Z95.0 Presence of cardiac pacemaker
CPT/HCPCS: 66984

== ENCOUNTER → 2018-03-31 | Outpatient (CLI) | payer MEDICARE, OTHER | LOC: M RAD 08:57 | DX: I70.213 Atherosclerosis of native arteries of extremities with intermittent claudication, bilateral legs (principal) | CPT/HCPCS: 93925 ==

== ENCOUNTER 2018-10-03 12:23 | Day surgery (SDC) | payer MEDICARE, OTHER ==
[~2018-10-03] VITALS: Ht 177.8 cm; Wt 86.2 kg
[~2018-10-03 12:23] MED LIST changes: +ACET-683 PO; +ACET500C PO; +AMOX500T PO; +ASPI81TA83 OR; +ASPI81TA85 PO; +CALCIUM/VITAMIN D PO; +CALCTAB28 PO; +CHLO125TA PO; +CHLORTHALIDONE PO; +CO Q200C10 PO; +COLA100C2 PO; +COLA100C5 PO; +COQ10 PO; +DIGO0.12 PO; +ECOT325T5 PO; +ELIQ5TAB PO; +GARLPOW PO; +GLUC500T3 PO; +GLUCTAB6 PO; +KEPP1TAB PO; +LEVO25TA5 PO; +LIDOCAINE 1% MDV 20ML VIAL SQ PRN; +LISI20TA5 PO; +LISI40TA PO; +LISI40TA52 PO; +LR 1,000 ML IV ONE; +MAGN1TAB26 PO; +METF500T13 PO; +METFORMIN PO; +MULTIVIT PO; +NITR0.4S SL; +NITR0.4S14 SL; +NITR4TASL SL; +OSTE5TAB PO; +OSTETAB4 PO; +PLAV75TA2 OR; +PRAV20TA2 PO; +PRAVASTATIN PO; -SLF 3 ML SYR IV; +SPIR-10 PO; +SPIRPOW PO; +VIMP100T PO; +VITATAB11 PO; +VITATAB73 PO; +VITMTA PO; +WARF-20 PO; +WARF-58 PO; +XARE10TA PO
[2018-10-03 13:06] LABS: INR 3.59; PROTHROMBIN TIME 36.7 SECONDS (12.1-14.4)
[2018-10-03] MEDS ORDERED: LIDOCAINE 2% INJ 100 MG/5 ML SDV (FOR ANES.) As Ordered ONE (13:58)
[2018-10-03] MEDS ORDERED: PROPOFOL 200 MG/20 ML VIAL As Ordered ONE (13:58)
[2018-10-03] MEDS ORDERED: fentaNYL 100 MCG/2 ML INJECTION (J3010) As Ordered ONE (13:58)
[2018-10-03] MEDS ORDERED: LIDOCAINE VISCOUS 2% SOLN 15ML UDC As Ordered ONE (14:00)
[2018-10-03] MEDS ORDERED: ONDANSETRON 4MG/2ML VIAL (J2405) As Ordered ONE (14:02)
[2018-10-03] MEDS ORDERED: PHENYLephrine HCL 500 MCG/5 ML (100MCG/ML) SYRINGE (J2370) As Ordered ONE (14:33)
[2018-10-03] MEDS: CETACAINE SPRAY 5GM As Ordered ONE ×2 (14:42→14:46)
[2018-10-03 15:39] LABS: CALCIUM LEVEL 8.8 MG/DL (8.8-10.2); CREATININE FOR GFR 1.49 MG/DL (0.70-1.30); GLOMERULAR FILTRATION RATE 48.4 (>42); MAGNESIUM LEVEL 2.1 MG/DL (1.8-2.4); POTASSIUM SERUM 4.6 MEQ/L (3.5-5.1)
--- NOTE | 2018-10-03 16:19 | T-ECHO ---
DATE OF PROCEDURE: 10/03/2018 PREPROCEDURE DIAGNOSIS: Left atrial appendage thrombus. POSTPROCEDURE DIAGNOSIS: No left atrial appendage thrombus. PRINCIPAL FINDINGS: Severe aortic stenosis. No left atrial appendage thrombus. Type 1 spontaneous echo contrast in the left atrial appendage. PROCEDURE: Transesophageal echocardiogram. SURGEON/PROCEDURE PERFORMED BY: Daron Liz MD METEOROLOGICAL ENGINEER: None. IV SEDATION: Propofol IV per SUPERVISOR DRAPERY HANGING. COMPLICATIONS: None. DESCRIPTION OF PROCEDURE: Underlying rhythm was atrial fibrillation. Ventricular paced rhythm throughout. Patient received viscous lidocaine to gargle. IV propofol was administered by the SUPERVISOR DRAPERY HANGING for IV sedation. Esophageal intubation was accomplished by Dr. Liz without difficulty using a Mary three-dimensional transesophageal echocardiogram probe. Transgastric views were technically fairly difficult, and the study in general was fairly technically difficult due to extensive electrical artifact due to construction in the operating room (OR) today. The left ventricle appeared normal in wall motion and overall systolic function. Left ventricular ejection fraction (LVEF) 60% by visual estimate. Right ventricle appeared normal in size and systolic function. Atrial septum was intact anatomically and by color flow Doppler. Presence of right atrial and right ventricle pacemaker leads. Aortic valve appeared to be congenitally bicuspid with extensive thickening and calcification and severe reduction in aortic cusp mobility, suggestive of severe aortic stenosis. Very mild aortic regurgitation was present. Status post mitral valve repair. The patient was not assessed by continuous wave Doppler for aortic stenosis. Mild mitral regurgitation was present. No vegetations on any of the cardiac valves. Pulmonic and tricuspid valves were not well visualized. Type 1 spontaneous echo contrast was seen in the left atrial appendage. No thrombus in my opinion in the left atrial appendage. The left atrial appendage had the typical shimmer that is expected in atrial fibrillation. Technically difficult for pulse wave Doppler in the left upper pulmonary vein. No pericardial effusion. Mild atheroma was seen in the distal aortic arch and descending thoracic aorta. CONCLUSIONS: 1. No left atrial appendage thrombus. Type 1 spontaneous echo contrast in the left atrial appendage. 2. 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 Severe calcification and severe reduction in mobility of the aortic cusps. Severe aortic stenosis. Very mild aortic regurgitation. 3. Normal left ventricle size and systolic function. No regional wall motion abnormalities. Left ventricular ejection fraction (LVEF) 60% by visual estimate. 4. Status post mitral valve repair with mitral annulus filling ring. The patient was not assess for mitral stenosis today. Mild mitral regurgitation. 5. Mild atheroma in the distal aortic arch and descending thoracic aorta. 6. Presence of endocardial, right atrial and right ventricle pacemaker leads.
[2018-10-03 16:30] VITALS: BP 155/67
== END 2018-10-03 16:50 | disposition home or self-care (01) ==
LOC: M SDC 12:23
PROVIDERS: ATTEND Internal Medicine Cardiovascular Disease
DX: I23.6 Thrombosis of atrium, auricular appendage, and ventricle as current complications following acute myocardial infarction (principal); I35.0 Nonrheumatic aortic (valve) stenosis; I48.91 Unspecified atrial fibrillation; I25.10 Atherosclerotic heart disease of native coronary artery without angina pectoris; I10 Essential (primary) hypertension; E11.9 Type 2 diabetes mellitus without complications; E03.9 Hypothyroidism, unspecified; E78.5 Hyperlipidemia, unspecified; Z79.01 Long term (current) use of anticoagulants; Z79.899 Other long term (current) drug therapy; Z79.84 Long term (current) use of oral hypoglycemic drugs; Z95.0 Presence of cardiac pacemaker; Z95.1 Presence of aortocoronary bypass graft; Z87.891 Personal history of nicotine dependence; Z86.73 Personal history of transient ischemic attack (TIA), and cerebral infarction without residual deficits
CPT/HCPCS: 36415; 80048; 83735; 85610; 93312; 93320; 93325; J2370; J2405; J3010

== ENCOUNTER 2018-10-17 11:35 | Day surgery (SDC) | payer MEDICARE, OTHER ==
[~2018-10-17] VITALS: Ht 177.8 cm; Wt 89.4 kg
[~2018-10-17 11:35] MED LIST changes: -LIDOCAINE 1% MDV 20ML VIAL SQ PRN; +SYST1SOL4 OP; +WARF4TAB51 PO; +ceFAZolin SOD 1 GM in D5W MINI-BAG PLUS 50 ML IV ONE
[2018-10-17 12:25] LABS: INR 2.3; PROTHROMBIN TIME 25.1 SECONDS (11.8-14.0)
[2018-10-17] MEDS ORDERED: LIDOCAINE 2% INJ 100 MG/5 ML SDV (FOR ANES.) As Ordered ONE (14:14)
[2018-10-17] MEDS ORDERED: ONDANSETRON 4MG/2ML VIAL (J2405) As Ordered ONE (14:14)
[2018-10-17] MEDS ORDERED: PROPOFOL 200 MG/20 ML VIAL As Ordered ONE ×2 (14:14→15:33)
[2018-10-17] MEDS ORDERED: fentaNYL 100 MCG/2 ML INJECTION (J3010) As Ordered ONE (14:15)
[2018-10-17] MEDS ORDERED: MIDAZOLAM INJ 2 MG/2 ML VIAL (J2250) As Ordered ONE (14:15)
[2018-10-17] MEDS ORDERED: LIDOCAINE 1% SDV INJ 30 ML VIAL As Ordered ONE (14:16)
[2018-10-17] MEDS ORDERED: ePHEDrine SULFATE 25 MG/5 ML(5MG/ML) SYRINGE As Ordered ONE (15:08)
[2018-10-17] MEDS ORDERED: MUPIROCIN 2% OINT 22 GM TUBE As Ordered ONE (15:31)
[2018-10-17 16:25] VITALS: BP 146/78
--- NOTE | 2018-10-17 16:32 | RO ---
DATE OF PROCEDURE: 10/17/2018 PREPROCEDURE DIAGNOSIS: Pacemaker battery depletion. POSTPROCEDURE DIAGNOSIS: Pacemaker battery depletion. FINDINGS: Pacemaker battery depletion. PROCEDURE: Explantation of old dual-chamber pacemaker pulse generator and implantation of new dual-chamber pacemaker pulse generator. Insertion of a medium size TYRX antimicrobial envelope. SURGEON: Daron Liz MD ASSISTANT GROCERY: None. ANESTHESIA: Lidocaine 1% local/monitored anesthetic care. SPECIMENS: Old dual-chamber pacemaker pulse generator. ESTIMATED BLOOD LOSS: Less than 3 mL. No blood products replaced. No drains. No complications. DESCRIPTION OF PROCEDURE: The patient was prepped and draped over the left pectoral region. 3M Ioban film was applied. Lidocaine 1% was used for local anesthetic. A PEAK PlasmaBlade was used to make an incision through the existing pacemaker scar. The PEAK PlasmaBlade was used to dissect down to the level of the anterior capsule. I then cut through the anterior capsule overlying the pulse generator using fine dissection scissors. The suture holding down the pulse generator was then cut with a #15 blade. The pacemaker pulse generator was then removed from the pocket. I then freed up the adhesions holding down the pacemaker leads at the base of the pocket using the PEAK PlasmaBlade. I expanded the caudal portion of the pocket using blunt dissection using two fingers to accommodate the different size and shape of the new pacemaker pulse generator. A medium size TYRX antimicrobial envelope was cut into six pieces and placed into the floor of the pocket. The atrial and ventricular leads were detached from the existing pacemaker pulse generator after loosening the set screws. The ventricular lead was tested and found to be satisfactory. The existing terminal pins of the ventricle and atrial leads were plugged into their respective ports in the header of the new pacemaker pulse generator and each one was secured by tightening the set screws with the hex screwdriver. The excess lead material was coiled underneath the pacemaker pulse generator and placed along with the pacemaker pulse generator into the pacemaker pocket with the excess lead material below and the pacemaker pulse generator on top. The deep layer was closed using individual sutures consisting of #2-0 Vicryl. A few additional #2-0 Vicryl sutures were used to help approximate the more superficial layer. The skin was then closed using nubia. The patient tolerated the procedure well without any immediate complications. Bactroban followed by Telfa, followed by a Bio-Occlusive dressing was applied as the final dressing. The existing pacemaker pulse generator that was removed was a [employer] model 5386 with serial number [id number], originally implanted 08/31/[address]. The new pacemaker pulse generator implanted was a [employer] MRI with model KE5447 with serial number [id number]. The TYRX envelope implanted was reference number [id number], lot number [id number]. The existing atrial lead was a [employer], model 1388T/52 with serial number [id number]. The fibrillation waves measured 1.8 millivolts and the lead impedance was 410 ohms. The existing right ventricle lead was a [employer], model 1388T/58 with serial number [id number], originally implanted 08/31/2005. Testing with the PSA analyzer in the operating room showed capture threshold for the ventricle lead to be 0.8 volts, 0.8 milliseconds with R wave amplitude of 8.2 millivolts and a lead impedance of 291 ohms.
== END 2018-10-17 16:53 | disposition home or self-care (01) ==
LOC: M SDC 11:35
PROVIDERS: ATTEND Internal Medicine Cardiovascular Disease
DX: Z45.010 Encounter for checking and testing of cardiac pacemaker pulse generator [battery] (principal); I48.91 Unspecified atrial fibrillation; I11.0 Hypertensive heart disease with heart failure; I50.9 Heart failure, unspecified; E78.5 Hyperlipidemia, unspecified; E11.9 Type 2 diabetes mellitus without complications; I25.10 Atherosclerotic heart disease of native coronary artery without angina pectoris; Z95.1 Presence of aortocoronary bypass graft; Z79.84 Long term (current) use of oral hypoglycemic drugs; Z79.01 Long term (current) use of anticoagulants; Z86.73 Personal history of transient ischemic attack (TIA), and cerebral infarction without residual deficits; Z79.899 Other long term (current) drug therapy
CPT/HCPCS: 33228; 36415; 85610; C1785; J0690; J2250; J2405; J3010

== ENCOUNTER 2018-12-23 13:19 | Outpatient (RCR) | payer MEDICARE, OTHER ==
--- NOTE | 2018-12-15 10:13 | CARECAPL ---
Assessment Account #s: Initial Assessment General Diagnoses: AVR Date of event: Nov 01, 2018 Physician: Miguel Keith Allergies: Coded Allergies: No Known Allergies (Unverified , 10/14/18) Date Entered Program: Dec 15, 2018 Office Visit Date: Dec 15, 2018 Risk strat for cardiac event: High Exercise Date: Dec 15, 2018 Assessment: Initial Assessment Exercise Prescription Plan to educate about cardiac disease and to provide a monitored exercise program to build endurance and strength Modalities initiated: Treadmill (will add), Cardio-Strider (may add), Nustep (will add), Arm Aerometer (will add), Dumbells (will add), Recumbent Bike (will add) Frequency: 2 Duration (Minutes) 30-60 minutes total exercise a day. 6-10 work intervals in minutes. as needed - rest intervals in minutes. Functional Capacity Goal Sustained Metabolic Equivalent of a task (MET) goal of 3-4 for 15-20 minutes. Intensity: 3-Moderate Progression (METS) Increase by: .5 METS every: 2-3 sessions Angina with ex: No Target Heart Rate 78-96 age predictor Resistance Training: Yes Reps: 6-8 Hypertension: Yes Hypertension controlled with: Medication Resting 167/85 Meds see below Medications Scheduled Ascorbic Acid (Vitamin C), 1 CAP PO DAILY, (Reported) Aspirin (Aspirin), 81 MG PO DAILY, (Reported) Chlorthalidone (Chlorthalidone), 12.5 MG PO QHS, (Reported) Digoxin (Digoxin), 125 MCG PO DAILY, (Reported) Glucosamine/D3/Boswellia Jessica (Osteo Bi-Flex Caplet), 2 TAB PO QHS, (Reported) Levothyroxine Sodium (Levothyroxine Sodium), 25 MCG PO DAILY, (Reported) Lisinopril (Lisinopril), 40 MG PO DAILY, (Reported) Magnesium Oxide (Magnesium Oxide), 400 MG PO BID, (Reported) Metformin HCl (Metformin HCl), 500 MG PO DAILY, (Reported) Multivitamins (Thera M Plus Tablet), 1 TAB PO DAILY, (Reported) Pantoprazole Sodium (Pantoprazole Sodium), 1 TAB PO DAILY, (Reported) Pravastatin Sodium (Pravastatin Sodium), 60 MG PO QHS, (Reported) Propylene Glycol/Peg 400/Pf (Systane 0.3-0.4% Eye Drop), 1 DROP OP BID, (Reported) Spironolactone (Spironolactone), 12.5 MG PO DAILY, (Reported) Ubidecarenone (Co Q-10), 200 MG PO DAILY, (Reported) Vitamin B Complex (Vitamin B Complex), 1 TAB PO DAILY, (Reported) Warfarin Sodium (Warfarin Sodium), 3 MG PO DAILY, (Reported) Scheduled PRN Acetaminophen (Acetaminophen), 500 MG PO Q6HP PRN for PAIN, (Reported) Nitroglycerin (Nitroglycerin), 0.4 MG SL PRN PRN for CHEST PAIN, (Reported) Discontinued Medications Amoxicillin (Amoxicillin), 500 MG PO PRN PRN for SEE PROTOCOL, (Reported) Discontinued Reason: Pt states not taking Target Goals Individual exercise Rx (1) BP 140/90 or 130/80 if DM or CKD (1) Aerobic active 30+min 5 days per week (1) Nutrition Date: Dec 15, 2018 Assessment: Initial Assessment Lipids Lipid med/supplement Lipid- med/supplement pravastatin sodium Diabetes Diabetes: Yes (type II) Diabetes medication metformin Monitor Blood Sugar at home: No Weight Management Weight (lbs): 196.4 Height (inches): 68 Waist Circumference (Inches): 44 BMI: 29.8 Weight goal: 160 Special Diet: low salt, mediteranean diet, low-fat Vitamin/Supplements: Multivitamin, Vitamin B Diet Access Tool: Rate your plate Score: 44 Intervention Dietary Goals smaller portions and better choices Diet Class: No (will see during program) Target goal LDL-C<100 if triglycerides are >200 Non-HDL-C should be <130 (1) LDL-C<70 for high risk patients (4) HbA1c<7% (1) BMI<25 Waist cir<40in M/<35in F (1) Education Date: Dec 15, 2018 Assessment: Initial Assessment Learning Barriers: learn Knowledge Test Score: 10 Family Support: No Tobacco use: No Quit: never smoked Tobacco Use Smokeless tobacco: Yes Intervention Referral to smoking cessation: No Individual education and couns: No Tobacco Adjunct: No Education class schedule given: Yes Target Goals Complete cessation of tobacco use (1). Psychosocial Date: Dec 15, 2018 Assessment: Initial Assessment Psych Test (Initial/Discharge) Tool Used: Other Stress Management Class: No Target Goal Assess presence or absence of depression using a valid screening tool (1). Maximize coping skills (2). Positive support system (2). Patient/Program Goal Preventative Medication: Yes JUNAID Inhibitor Fall Risk Assess: No (tug 11 sec) Provider Assessment Provider Assessment: Proceed with rehab Wanda Costello RN Dec 15, 2018 10:13
[~2018-12-23 13:19] MED LIST changes: +ASPI81CH33 PO; -LR 1,000 ML IV ONE; +PANT40TA3 PO; +VITA500C24 PO; -ceFAZolin SOD 1 GM in D5W MINI-BAG PLUS 50 ML IV ONE
== END 2018-12-24 ==
LOC: M CR 13:19
PROVIDERS: ATTEND Internal Medicine Cardiovascular Disease
DX: Z95.3 Presence of xenogenic heart valve (principal); I35.0 Nonrheumatic aortic (valve) stenosis

== ENCOUNTER 2019-01-20 12:40 | Outpatient (RCR) | payer MEDICARE, OTHER ==
--- NOTE | 2019-01-11 15:22 | CARECAPL ---
Assessment Account #s: Re-Assessment I General Diagnoses: AVR Date of event: Nov 01, 2018 Physician: Miguel Keith Allergies: Coded Allergies: No Known Allergies (Unverified , 10/14/18) Date Entered Program: Dec 15, 2018 Risk strat for cardiac event: High Exercise Assessment: Re-Assessment I Stages of change: Preperation Exercise Prescription Plan TO EDUCATE AND BUILD ENDURANCE AND STRENGTH THROUGH MONITORED EXERCISE PROGRAM Modalities initiated: Treadmill (METS=2.23/RPE=5), Nustep (METS=3.9/RPE=3), Arm Aerometer (METS=2.4/RPE=3), Dumbells (3#/RPE=3), Recumbent Bike (METS=3.2/RPE=4) Frequency: 3 Duration (Minutes) 30 - 60 minutes total exercise a day. 15 - 20 work intervals in minutes. PRN rest intervals in minutes. Functional Capacity Goal Sustained Metabolic Equivalent of a task (MET) goal of 3.0-4.0 for 15-20 minutes. Intensity: 3-Moderate Progression (METS) Increase by: 0.5 METS every: 5 sessions Angina with ex: No Target Heart Rate 78-96 PER AGE PREDICTOR Resistance Training: Yes Weight (pounds): 3 Reps: 8-12 Hypertension: Yes Hypertension controlled with: Medication (LISINOPRIL) Resting 152/80 Peak Exercise BP 180/90 Medications Scheduled Ascorbic Acid (Vitamin C), 1 CAP PO DAILY, (Reported) Aspirin (Aspirin), 81 MG PO DAILY, (Reported) Chlorthalidone (Chlorthalidone), 12.5 MG PO QHS, (Reported) Digoxin (Digoxin), 125 MCG PO DAILY, (Reported) Glucosamine/D3/Boswellia Jessica (Osteo Bi-Flex Caplet), 2 TAB PO QHS, (Reported) Levothyroxine Sodium (Levothyroxine Sodium), 25 MCG PO DAILY, (Reported) Lisinopril (Lisinopril), 40 MG PO DAILY, (Reported) Magnesium Oxide (Magnesium Oxide), 400 MG PO BID, (Reported) Metformin HCl (Metformin HCl), 500 MG PO DAILY, (Reported) Multivitamins (Thera M Plus Tablet), 1 TAB PO DAILY, (Reported) Pantoprazole Sodium (Pantoprazole Sodium), 1 TAB PO DAILY, (Reported) Pravastatin Sodium (Pravastatin Sodium), 60 MG PO QHS, (Reported) Propylene Glycol/Peg 400/Pf (Systane 0.3-0.4% Eye Drop), 1 DROP OP BID, (Reported) Spironolactone (Spironolactone), 12.5 MG PO DAILY, (Reported) Ubidecarenone (Co Q-10), 200 MG PO DAILY, (Reported) Vitamin B Complex (Vitamin B Complex), 1 TAB PO DAILY, (Reported) Warfarin Sodium (Warfarin Sodium), 3 MG PO DAILY, (Reported) Scheduled PRN Acetaminophen (Acetaminophen), 500 MG PO Q6HP PRN for PAIN, (Reported) Nitroglycerin (Nitroglycerin), 0.4 MG SL PRN PRN for CHEST PAIN, (Reported) Current BP 142/80 Med Change: No Intervention Education: Self pulse (DEMONSTRATES SELF PULSE), Ex safety (VERBALIZES UNDERSTANDING OF IMPORTANCE OF WARM UP/COOL DOWN PRIOR TO AND FOLLOWING EXERCISE), S/S to report (VERBALIZES UNDERSTANDING OF NOTIFYING NURSES OF CHEST PAIN/SOB), Low NA diet (WILL MEET WITH CARBIDE OPERATOR/VERBALIZES UNDERSTANDING OF LOW SODIUM DIET), BP medication (REVIEWED LISINOPRIL ACTION WITH PATIENT), RPE Scale (INDEPENDENTLY USES RPE SCALE OF 1-5 FOR DIFFICULTY), Equipment orientation (ORIENTED TO EACH PIECE OF EQUIPMENT ), warm up/cool down (INDEPENDENTLY WARMS UP/COOLS DOWN PRIOR TO AND FOLLOWING EXERCISE), Understand BP (VERBALIZES UNDERSTANDING OF TARGET B/P <120/80), Physical Active (EDUCAATED ON IMPORTANCE OF CONTINUED EXERCISE FOLLOWING CARDIAC REHAB PROGRAM) Education Goals Met: Yes (PROGRESSING TOWARD GOALS) Target Goals Individual exercise Rx (1) BP 140/90 or 130/80 if DM or CKD (1) Aerobic active 30+min 5 days per week (1) Nutrition Date: Jan 11, 2019 Assessment: Re-Assessment I Stages of change: Preperation Lipid- med/supplement PRAVASTATIN 60 MG DAILY Med Change: No Diabetes Diabetes: Yes (TYPE II) Diabetes medication METFORMIN, Monitor Blood Sugar at home: No Medication Change: No Weight Management Weight (lbs): 200.6 Weight goal: 160 Special Diet: low salt, mediteranean diet, low-fat Vitamin/Supplements: Multivitamin, Vitamin B Alcohol: none Current Weight (pounds): 200.6 Weight Goal 160 Intervention Patent Agent Consult: No Nurse/patient discussion: Yes Dietary Goals SMALLER HEART HEALTHY CHOICES Diet Class: Yes (WHILE IN PROGRAM WILL SEE CARBIDE OPERATOR) Referral to Diabetes education: No Referral to lipid clinic: No Referral to weight mangement p: No Education S&S hypo/hyper glycemia, Relate Diabetes in CAD, Eating Healthy Education Goals Met: Yes (PROGRESSING TOWARD GOALS) Target goal LDL-C<100 if triglycerides are >200 Non-HDL-C should be <130 (1) LDL-C<70 for high risk patients (4) HbA1c<7% (1) BMI<25 Waist cir<40in M/<35in F (1) Education Date: Jan 11, 2019 Assessment: Re-Assessment I Learning Barriers: ready Stages of change: Preperation Family Support: Yes Tobacco use: No Quit: never smoked Tobacco Use Smokeless tobacco: No Intervention Referral to smoking cessation: No Individual education and couns: No Tobacco Adjunct: No Education class schedule given: No Attended education classes: No Education: CAD, Risk factors (GAINING WEIGHT, HIGH FAT AND CHOLESTEROL FOODS), med compliance, cardiac A&P, Angina S/S (REVIEWED CHEST PAIN/SOB), Sexuality Education Goals Met: Yes (PROGRESSING TOWARD GOALS) Target Goals Complete cessation of tobacco use (1). Psychosocial Date: Jan 11, 2019 Assessment: Re-Assessment I Stages of change: Contemplate Intervention Physician Consult: No Physician Referral: No Med Change: No Stress Management Class: No Uses Stress Management Skills: Yes Education Education: Coping Techniques (DEEP BREATHING/QUIET PLACE), S/S depression (LACK OF INTEREST, LACK OF APPETITE), Relaxation Techniques (READING, MUSIC) Education Goals Met: Yes (PROGRESSING TOWARD GOALS) Target Goal Assess presence or absence of depression using a valid screening tool (1). Maximize coping skills (2). Positive support system (2). Patient/Program Goal Preventative Medication: Yes Aspirin, Yes Statin/OTR lipid Lowering Fall Risk Assess: Yes (NOT A FALL RISK) Provider Assessment Session Number: 7 Provider Assessment: Proceed with rehab (MAKING GOOD PROGRESS) Gaurav Lopez RN Jan 11, 2019 15:22
[~2019-01-20 12:40] MED LIST changes: +FURO20TA2 PO
== END 2019-01-23 ==
LOC: M CR 12:40
PROVIDERS: ATTEND Internal Medicine Cardiovascular Disease
DX: Z95.3 Presence of xenogenic heart valve (principal); I35.0 Nonrheumatic aortic (valve) stenosis

== ENCOUNTER 2019-02-22 12:47 | Outpatient (RCR) | payer MEDICARE, OTHER ==
--- NOTE | 2019-02-06 17:56 | CARECAPL ---
Assessment Account #s: Re-Assessment II General Diagnoses: AVR Date of event: Nov 01, 2018 Physician: Miguel Keith Allergies: Coded Allergies: No Known Allergies (Unverified , 10/14/18) Date Entered Program: Dec 15, 2018 Risk strat for cardiac event: High Exercise Date: Feb 06, 2019 Assessment: Re-Assessment II Stages of change: action Exercise Prescription Plan TO EDUCATE AND BUILD ENDURANCE THROUGH MONITORED EXERCISE Modalities initiated: Nustep (METS=4.7/RPE=4), Arm Aerometer (METS=2.3/RPE=3), Dumbells (5#/RPE=3), Recumbent Bike (METS=3.2/RPE=4) Frequency: 3 Duration (Minutes) 30 - 60 minutes total exercise a day. 15 - 20 work intervals in minutes. PRN rest intervals in minutes. Functional Capacity Goal Sustained Metabolic Equivalent of a task (MET) goal of 3.0-4.0 for 15-20 minutes. Intensity: 3-Moderate Progression (METS) Increase by: METS every: sessions Angina with ex: No Target Heart Rate 78-96 PER AGE PREDICTOR Resistance Training: Yes Weight (pounds): 5 Reps: 12-15 Hypertension: Yes Hypertension controlled with: Medication (LISINOPRIL) Resting 118/80 Peak Exercise BP 142/82 Medications Scheduled Ascorbic Acid (Vitamin C), 1 CAP PO DAILY, (Reported) Aspirin (Aspirin), 81 MG PO DAILY, (Reported) Digoxin (Digoxin), 125 MCG PO DAILY, (Reported) Furosemide (Furosemide), 20 MG PO BID, (Reported) Glucosamine/D3/Boswellia Jessica (Osteo Bi-Flex Caplet), 2 TAB PO QHS, (Reported) Levothyroxine Sodium (Levothyroxine Sodium), 25 MCG PO DAILY, (Reported) Lisinopril (Lisinopril), 40 MG PO DAILY, (Reported) Magnesium Oxide (Magnesium Oxide), 400 MG PO BID, (Reported) Metformin HCl (Metformin HCl), 500 MG PO DAILY, (Reported) Multivitamins (Thera M Plus Tablet), 1 TAB PO DAILY, (Reported) Pantoprazole Sodium (Pantoprazole Sodium), 1 TAB PO DAILY, (Reported) Pravastatin Sodium (Pravastatin Sodium), 60 MG PO QHS, (Reported) Propylene Glycol/Peg 400/Pf (Systane 0.3-0.4% Eye Drop), 1 DROP OP BID, (Reported) Spironolactone (Spironolactone), 12.5 MG PO DAILY, (Reported) Ubidecarenone (Co Q-10), 200 MG PO DAILY, (Reported) Vitamin B Complex (Vitamin B Complex), 1 TAB PO DAILY, (Reported) Warfarin Sodium (Warfarin Sodium), 3 MG PO DAILY, (Reported) Scheduled PRN Acetaminophen (Acetaminophen), 500 MG PO Q6HP PRN for PAIN, (Reported) Nitroglycerin (Nitroglycerin), 0.4 MG SL PRN PRN for CHEST PAIN, (Reported) Current BP 102/68 Med Change: No Intervention Home exercise: Type (WALKING, HOME EXERCISE EQUIPMENT), Frequency (3-5 DAYS PER WEEK), Duration (30-60 MIN) Resistance Training: Yes Education: Self pulse (SEEE PREVIOUS ITP FOR EDUCATION) Education Goals Met: No (PROGRESSING TOWARD GOALS) Target Goals Individual exercise Rx (1) BP 140/90 or 130/80 if DM or CKD (1) Aerobic active 30+min 5 days per week (1) Nutrition Date: Feb 06, 2019 Assessment: Re-Assessment II Stages of change: action Lipid- med/supplement PRAVASTATIN Med Change: No Diabetes Diabetes: Yes (DM TYPEII) Diabetes medication METFORMIN, Monitor Blood Sugar at home: Yes Medication Change: No Blood sugar in range: Yes Weight Management Weight (lbs): 199 Special Diet: low salt, mediteranean diet, low-fat Vitamin/Supplements: Multivitamin, Vitamin B Alcohol: none Current Weight (pounds): 199 Weight Goal 160 Intervention Foreign Law Consultant Consult: No Nurse/patient discussion: Yes Dietary Goals SMALLER HEART HEALTHY CHOICES Diet Class: Yes (WILL MEET WITH METEOROLOGIST LIAISON WHILE IN PROGRAM) Referral to Diabetes education: No Referral to lipid clinic: No Referral to weight mangement p: No Education S&S hypo/hyper glycemia, Relate Diabetes in CAD, Eating Healthy Education Goals Met: Yes (PROGRESSING TOWARD GOALS) Target goal LDL-C<100 if triglycerides are >200 Non-HDL-C should be <130 (1) LDL-C<70 for high risk patients (4) HbA1c<7% (1) BMI<25 Waist cir<40in M/<35in F (1) Education Date: Feb 06, 2019 Assessment: Re-Assessment II Learning Barriers: ready Stages of change: action Family Support: Yes Tobacco use: No Tobacco Use Smokeless tobacco: No Intervention Referral to smoking cessation: No Individual education and couns: No Tobacco Adjunct: No Education class schedule given: No Attended education classes: No Education: tobacco triggers (SEE PRIOR ITP FOR EDUCATION) Education Goals Met: Yes (PROGRESSING TOWARD GOALS) Target Goals Complete cessation of tobacco use (1). Psychosocial Date: Feb 06, 2019 Assessment: Re-Assessment II Stages of change: action Intervention Physician Consult: No Physician Referral: No Med Change: No Stress Management Class: No Uses Stress Management Skills: Yes Education Education: Coping Techniques (SEE PRIOR ITP FOR EDUCATION) Education Goals Met: Yes (PROGRESSING TOWARD GOALS, GOOD ATTENDENCE, GOOD ATTITUDE TOWARDS EDUCATION AND EXERCISE) Target Goal Assess presence or absence of depression using a valid screening tool (1). Maximize coping skills (2). Positive support system (2). Patient/Program Goal Preventative Medication: Yes Aspirin, Yes Statin/OTR lipid Lowering Fall Risk Assess: Yes (PATIENT IS A FALL RISK) Provider Assessment Session Number: 14 Provider Assessment: Proceed with rehab (WORKING HARD ON EQUIPMENT, VERY RECEPTIVE TO EDUCATION) Gaurav Lopez RN Feb 06, 2019 17:56
== END 2019-02-23 ==
LOC: M CR 12:47
PROVIDERS: ATTEND Internal Medicine Cardiovascular Disease
DX: I35.0 Nonrheumatic aortic (valve) stenosis (principal); Z95.3 Presence of xenogenic heart valve

== ENCOUNTER 2019-03-15 15:27 | Outpatient (RCR) | payer MEDICARE, OTHER ==
--- NOTE | 2019-02-27 16:59 | CARECAPL ---
Assessment Account #s: Re-Assessment II (REASSESSMENT III) General Diagnoses: AVR Date of event: Nov 01, 2018 Physician: Miguel Keith Allergies: Coded Allergies: No Known Allergies (Unverified , 10/14/18) Date Entered Program: Dec 15, 2018 Risk strat for cardiac event: High Exercise Date: Feb 27, 2019 Assessment: Re-Assessment II (REASSESSMENT III) Stages of change: action Exercise Prescription Plan TO EDUCATE AND BUILD ENDURANCE THROUGH MONITORED EXERCISE Modalities initiated: Nustep (METS=4.5/RPE=4), Arm Aerometer (METS=2.5/RPE=3), Dumbells (6#/RPE=3), Recumbent Bike (METS=3.7/RPE=4) Frequency: 3 Duration (Minutes) 30 - 60 minutes total exercise a day. 15 - 20 work intervals in minutes. PRN rest intervals in minutes. Functional Capacity Goal Sustained Metabolic Equivalent of a task (MET) goal of 3.5-4.0 for 15-20 minutes. Intensity: 3-Moderate Progression (METS) Increase by: METS every: sessions Angina with ex: No Target Heart Rate 78-96 PER AGE PREDICTOR Resistance Training: Yes Weight (pounds): 6 Reps: 12-15 Hypertension: Yes Hypertension controlled with: Medication (LISINOPRIL) Resting 118/70 Peak Exercise BP 158/80 Medications Scheduled Ascorbic Acid (Vitamin C), 1 CAP PO DAILY, (Reported) Aspirin (Aspirin), 81 MG PO DAILY, (Reported) Digoxin (Digoxin), 125 MCG PO DAILY, (Reported) Furosemide (Furosemide), 20 MG PO BID, (Reported) Glucosamine/D3/Boswellia Jessica (Osteo Bi-Flex Caplet), 2 TAB PO QHS, (Reported) Levothyroxine Sodium (Levothyroxine Sodium), 25 MCG PO DAILY, (Reported) Lisinopril (Lisinopril), 40 MG PO DAILY, (Reported) Magnesium Oxide (Magnesium Oxide), 400 MG PO BID, (Reported) Metformin HCl (Metformin HCl), 500 MG PO DAILY, (Reported) Multivitamins (Thera M Plus Tablet), 1 TAB PO DAILY, (Reported) Pantoprazole Sodium (Pantoprazole Sodium), 1 TAB PO DAILY, (Reported) Pravastatin Sodium (Pravastatin Sodium), 60 MG PO QHS, (Reported) Propylene Glycol/Peg 400/Pf (Systane 0.3-0.4% Eye Drop), 1 DROP OP BID, (Reported) Spironolactone (Spironolactone), 12.5 MG PO DAILY, (Reported) Ubidecarenone (Co Q-10), 200 MG PO DAILY, (Reported) Vitamin B Complex (Vitamin B Complex), 1 TAB PO DAILY, (Reported) Warfarin Sodium (Warfarin Sodium), 3 MG PO DAILY, (Reported) Scheduled PRN Acetaminophen (Acetaminophen), 500 MG PO Q6HP PRN for PAIN, (Reported) Nitroglycerin (Nitroglycerin), 0.4 MG SL PRN PRN for CHEST PAIN, (Reported) Current BP 96/56 Med Change: No Intervention Resistance Training: Yes Education: Self pulse (SEE PREVIOUS ITP'S FOR EDUCATION) Education Goals Met: Yes (PROGRESSING TOWARD GOALS) Target Goals Individual exercise Rx (1) BP 140/90 or 130/80 if DM or CKD (1) Aerobic active 30+min 5 days per week (1) Nutrition Date: Feb 27, 2019 Assessment: Re-Assessment II (REASSESSMENT III) Stages of change: action Lipid- med/supplement PRAVASTATIN SODIUM Med Change: No Diabetes Diabetes: Yes (ON METFORMIN, DOES NOT CHECK FSBS AT HOME) Monitor Blood Sugar at home: No Medication Change: No Weight Management Weight (lbs): 185.8 Special Diet: low salt, low-fat Vitamin/Supplements: Multivitamin, Vitamin B, Vitamin C Current Weight (pounds): 185.8 Intervention International First Officer Consult: No Nurse/patient discussion: Yes Dietary Goals TO MAKE HEART HEALTHY CHOICES WITH PORTION CONTROL Diet Class: Yes (MET WITH WINDOWS TECHNICAL SPECIALIST 01/05/19) Referral to Diabetes education: No Referral to lipid clinic: No Referral to weight mangement p: No Education S&S hypo/hyper glycemia, Relate Diabetes in CAD, Eating Healthy Education Goals Met: Yes (PROGRESSING TOWARD GOALS) Target goal LDL-C<100 if triglycerides are >200 Non-HDL-C should be <130 (1) LDL-C<70 for high risk patients (4) HbA1c<7% (1) BMI<25 Waist cir<40in M/<35in F (1) Education Date: Feb 27, 2019 Assessment: Re-Assessment II (REASSESSMENT III) Learning Barriers: ready Stages of change: action Family Support: Yes Tobacco use: No Tobacco Use Smokeless tobacco: No Intervention Referral to smoking cessation: No Individual education and couns: No Tobacco Adjunct: No Education class schedule given: No Attended education classes: No Education: CAD (SEE PRIOR ITP'S FOR EDUCATION) Education Goals Met: Yes (PROGRESSING TOWARD GOALS) Target Goals Complete cessation of tobacco use (1). Psychosocial Date: Feb 27, 2019 Assessment: Re-Assessment II (REASSESSMENT III) Stages of change: action Intervention Physician Consult: No Physician Referral: No Med Change: No Stress Management Class: No Uses Stress Management Skills: Yes Education Education: Coping Techniques, S/S depression, Relaxation Techniques Education Goals Met: Yes (PROGRESSING TOWARD GOALS/EXCELLENT ATTENDENCE AND RECEPTIVE TO EDUCATION) Target Goal Assess presence or absence of depression using a valid screening tool (1). Maximize coping skills (2). Positive support system (2). Patient/Program Goal Preventative Medication: Yes Aspirin, Yes Statin/OTR lipid Lowering Fall Risk Assess: Yes (PATIENT IS A FALL RISK) Provider Assessment Session Number: 20 Provider Assessment: Proceed with rehab Gaurav Lopez RN Feb 27, 2019 16:59
--- NOTE | 2019-03-16 08:42 | CARECAPL ---
Assessment Account #s: Discharge General Diagnoses: AVR Date of event: Nov 01, 2018 Physician: Miguel Keith Allergies: Coded Allergies: No Known Allergies (Unverified , 10/14/18) Date Entered Program: Dec 15, 2018 Risk strat for cardiac event: High Exercise Date: Mar 16, 2019 Assessment: Followup/Discharge Stages of change: action Exercise Prescription Plan TO EDUCATE AND BUILD ENDURANCE THROUGH MONITORED EXERCISE Modalities initiated: Nustep (METS=3.3/RPE=3), Arm Aerometer (METS=2.8/RPE=3), Dumbells (6#/RPE=3), Recumbent Bike (METS=4.3/RPE=3) Frequency: 3 Duration (Minutes) 30 - 60 minutes total exercise a day. 15 - 20 work intervals in minutes. PRN rest intervals in minutes. Functional Capacity Goal Sustained Metabolic Equivalent of a task (MET) goal of 3.0-4.0 for 15-20 minutes. Intensity: 3-Moderate Progression (METS) Increase by: METS every: sessions Angina with ex: No Target Heart Rate 78-96 AGE PREDICTED Resistance Training: Yes Weight (pounds): 6 Reps: 12-15 Hypertension: Yes Hypertension controlled with: Medication (LISINOPRIL) Resting 118/80 Peak Exercise BP 160/86 Medications Scheduled Ascorbic Acid (Vitamin C), 1 CAP PO DAILY, (Reported) Aspirin (Aspirin), 81 MG PO DAILY, (Reported) Digoxin (Digoxin), 125 MCG PO DAILY, (Reported) Furosemide (Furosemide), 20 MG PO BID, (Reported) Glucosamine/D3/Boswellia Jessica (Osteo Bi-Flex Caplet), 2 TAB PO QHS, (Reported) Levothyroxine Sodium (Levothyroxine Sodium), 25 MCG PO DAILY, (Reported) Lisinopril (Lisinopril), 40 MG PO DAILY, (Reported) Magnesium Oxide (Magnesium Oxide), 400 MG PO BID, (Reported) Metformin HCl (Metformin HCl), 500 MG PO DAILY, (Reported) Multivitamins (Thera M Plus Tablet), 1 TAB PO DAILY, (Reported) Pantoprazole Sodium (Pantoprazole Sodium), 1 TAB PO DAILY, (Reported) Pravastatin Sodium (Pravastatin Sodium), 60 MG PO QHS, (Reported) Propylene Glycol/Peg 400/Pf (Systane 0.3-0.4% Eye Drop), 1 DROP OP BID, (Reported) Spironolactone (Spironolactone), 12.5 MG PO DAILY, (Reported) Ubidecarenone (Co Q-10), 200 MG PO DAILY, (Reported) Vitamin B Complex (Vitamin B Complex), 1 TAB PO DAILY, (Reported) Warfarin Sodium (Warfarin Sodium), 3 MG PO DAILY, (Reported) Scheduled PRN Acetaminophen (Acetaminophen), 500 MG PO Q6HP PRN for PAIN, (Reported) Nitroglycerin (Nitroglycerin), 0.4 MG SL PRN PRN for CHEST PAIN, (Reported) Current BP 118/70 Med Change: No Intervention Home exercise: Type (WALKING,HAND WEIGHTS,SILVER SNEAKERS, MAY BE INTERESTED IN OUR MEET PROGRAM), Frequency (3-5 DAYS PER WEEK), Duration (30-60 MINUTES) Resistance Training: Yes Education Goals Met: Yes (SEE EDUCATION ON PRIOR ITP) Target Goals Individual exercise Rx (1) BP 140/90 or 130/80 if DM or CKD (1) Aerobic active 30+min 5 days per week (1) Nutrition Date: Mar 16, 2019 Assessment: Followup/Discharge Stages of change: action Lipid- med/supplement PRAVASTATIN Med Change: No Diabetes Diabetes: Yes (METFORMIN, DOES NOT CHECK FSBS AT HOME) Diabetes medication METFORMIN Monitor Blood Sugar at home: No Medication Change: No Weight Management Weight (lbs): 182 Special Diet: low salt, low-fat, other (DIABETIC) Vitamin/Supplements: Multivitamin, Vitamin B, Vitamin C Alcohol: none Current Weight (pounds): 182 Intervention Trading Analyst Consult: No Nurse/patient discussion: Yes Dietary Goals SMALLER HEART HEALTHY CHOICES Diet Class: Yes (PATIENT MET WITH HEALTHCARE MANAGEMENT 01/05/19) Referral to Diabetes education: No Referral to lipid clinic: No Referral to weight mangement p: No Education S&S hypo/hyper glycemia, Relate Diabetes in CAD, Eating Healthy Education Goals Met: Yes (SEE EDUCATION ON PRIOR ITP) Target goal LDL-C<100 if triglycerides are >200 Non-HDL-C should be <130 (1) LDL-C<70 for high risk patients (4) HbA1c<7% (1) BMI<25 Waist cir<40in M/<35in F (1) Education Date: Mar 16, 2019 Assessment: Followup/Discharge Learning Barriers: ready Stages of change: action Family Support: Yes Tobacco use: No Tobacco Use Smokeless tobacco: No Intervention Referral to smoking cessation: No Individual education and couns: No Tobacco Adjunct: No Education class schedule given: No Attended education classes: No Education Goals Met: Yes (SEE EDUCATION ON PRIOR ITP) Target Goals Complete cessation of tobacco use (1). Psychosocial Date: Mar 16, 2019 Assessment: Followup/Discharge Stages of change: action Intervention Physician Consult: No Physician Referral: No Med Change: No Stress Management Class: No Uses Stress Management Skills: Yes Education Goals Met: Yes (SEE PRIOR ITP FOR EDUCATION, PATIENT HAD EXCELLENT ATTENDENCE, VERY RECEPTIVE TO EDUCATION) Target Goal Assess presence or absence of depression using a valid screening tool (1). Maximize coping skills (2). Positive support system (2). Patient/Program Goal Preventative Medication: Yes Aspirin, Yes Statin/OTR lipid Lowering Fall Risk Assess: Yes (PATIENT IS A FALL RISK) Provider Assessment Session Number: 25 Gaurav Lopez RN Mar 16, 2019 08:42
== END 2019-03-25 ==
LOC: M CR 15:27
PROVIDERS: ATTEND Internal Medicine Cardiovascular Disease
DX: Z95.3 Presence of xenogenic heart valve (principal); I35.0 Nonrheumatic aortic (valve) stenosis

== ENCOUNTER → 2019-09-01 | Outpatient (CLI) | payer MEDICARE, OTHER ==
[~2019-09-01] MED LIST changes: +DIGO0.123 PO
== END ==
LOC: M LABSMTC 10:25
PROVIDERS: ATTEND Anesthesiology
DX: Z01.818 Encounter for other preprocedural examination (principal); Z11.59 Encounter for screening for other viral diseases

== ENCOUNTER 2019-09-04 13:40 | Day surgery (SDC) | payer MEDICARE, OTHER ==
[~2019-09-04] VITALS: Ht 172.7 cm; Wt 72.1 kg
[~2019-09-04 13:40] MED LIST changes: +NS 1,000 ML IV ONE
[2019-09-04] MEDS ORDERED: MIDAZOLAM INJ 2MG/2ML VIAL (J2250 PER 1MG) As Ordered ONE (15:09)
[2019-09-04] MEDS ORDERED: LIDOCAINE VISCOUS 2% SOLN 15ML UDC As Ordered ONE (15:12)
[2019-09-04] MEDS ORDERED: MIDAZOLAM INJ 2MG/2ML VIAL (J2250 PER 1MG) IV ONE ×2 (15:22→15:25)
[2019-09-04 16:40] VITALS: BP 157/67
--- NOTE | 2019-09-04 20:28 | T-ECHO ---
DATE OF PROCEDURE: 09/04/2019 PREPROCEDURE DIAGNOSIS: Perimembranous ventricular septal defect, aortic regurgitation. POSTPROCEDURE DIAGNOSIS: Perimembranous ventricular septal defect, aortic regurgitation. FINDINGS: See conclusions below. PROCEDURE PERFORMED BY: Daron Liz MD STEAM STATION SUPERVISOR: None. PROCEDURE PERFORMED: Transesophageal echocardiogram. DESCRIPTION OF PROCEDURE: Patient received viscous lidocaine to gargle. He received a total of 3 mg of midazolam IV for IV sedation. Patient tolerated the procedure well without any immediate complications. Rhythm was underlying atrial fibrillation with some ventricular demand pacing and frequent premature ventricular contractions (PVCs), including ventricular couplets. By visual assessment, the left ventricle appeared to be probably mildly dilated. Difficult for complete endocardial visualization and precise regional wall motion analysis. Epigastric views were technically difficult. There was a lot of shadowing by the mitral valve anuloplasty ring and by the TAVR, making the study fairly difficult. The lateral wall appeared hypokinetic. Paradoxical septal motion. Moderately severe reduction in overall left ventricular (LV) systolic function. Left ventricular ejection fraction (LVEF) 45% by visual estimate. Right ventricle was probably mildly dilated and had normal right ventricular (RV) systolic function. Right atrium appeared enlarged. Left atrium appeared enlarged. The left atrial appendage was dilated and appeared to be truncated. Type 2 spontaneous echocontrast and type 1 spontaneous echocontrast were seen in the left atrial appendage. No thrombus in the left atrial appendage. Atrial septum appeared anatomically intact and by color flow Doppler. TAVR was present. There was a paravalvular aortic regurgitation of a moderate degree. Difficult to assess the cusp motion within the TAVR due to shadowing. Fairly diffuse thickening of the mitral leaflets with restricted mobility. Mild mitral stenosis with a peak mitral E-velocity (CW) of 1.91 meters per second and mean gradient across the mitral valve of 5 mmHg. Moderate mitral regurgitation, mild mitral stenosis. Tricuspid leaflets were structurally normal. Moderately-severe tricuspid regurgitation. Pulmonic valve was not well visualized. No pericardial effusion. Presence of right atrial and right ventricle endocardial pacing leads present. CONCLUSIONS: 1. Status post TAVR with a paravalvular aortic regurgitation of moderate severity. 2. Status post mitral valve repair with mitral annular sewing ring. Diffusely thickened mitral leaflets with reduced mobility. Mild mitral stenosis and moderate mitral regurgitation. 3. Perimembranous ventricular septal defect (small) with a peak velocity of 4.36 meters per second (76 mmHg). 4. Presence of endocardial, right atrial and right ventricle pacemaker leads. 5. Moderately-severe tricuspid regurgitation. 6. Spontaneous echocontrast in a dilated left atrial appendage. Appears to be a truncated left atrial appendage. 7. Probably mildly dilated left ventricle with moderately-severe reduction in overall LV systolic function. Left ventricular ejection fraction (LVEF) 45% by visual estimate. Probably hypokinesis of the lateral wall of the left ventricle. Paradoxical septal motion. Technically difficult for complete endocardial visualization of the left ventricle. 8. Left atrial enlargement. 9. No vegetations. MTDD
== END 2019-09-04 16:50 | disposition home or self-care (01) ==
LOC: M OPP 13:40
PROVIDERS: ATTEND Internal Medicine Cardiovascular Disease
DX: Z95.3 Presence of xenogenic heart valve (principal); I35.0 Nonrheumatic aortic (valve) stenosis; Q21.0 Ventricular septal defect
CPT/HCPCS: 93312; 93320; 93325; J2250

== ENCOUNTER → 2021-02-18 | Outpatient (REF) | payer MEDICARE, OTHER ==
[~2021-02-18] MED LIST changes: -ASPI81TA85 PO; +ASPI81TA86 PO; -LISI40TA PO; +LISI40TA4 PO; -NS 1,000 ML IV ONE; +PANT40TA29 PO; -PANT40TA3 PO
[2021-02-18 17:12] LABS: CREATININE FOR GFR 1.43 MG/DL (0.70-1.30); GLOMERULAR FILTRATION RATE 50.5 (>35)
[2021-02-18 19:29] LABS: HEMOGLOBIN A1c 6.4 %
== END ==
LOC: M LAB REF 16:06
PROVIDERS: ATTEND Surgery
DX: I70.238 Atherosclerosis of native arteries of right leg with ulceration of other part of lower leg (principal); Z79.899 Other long term (current) drug therapy
CPT/HCPCS: 11042; 82565; 83036; 84520; G0463

== ENCOUNTER → 2021-02-27 | Outpatient (CLI) | payer MEDICARE, OTHER ==
[~2021-02-27] MED LIST changes: +ISOVUE-370 76% 100ML VIAL As Ordered ONE
--- NOTE | 2021-02-27 11:56 | REP ---
INDICATION: ATHEROSCLEROSIS. COMPARISON: None. TECHNIQUE: Bolus of 100 mL Isovue 370 the abdomen and pelvis scanning and lower extremity runoff. Coronal and sagittal reconstructions, MIP reformatting, 3D volume reconstruction surface renderings and curved reconstruction of individual arteries in the lower extremities performed. FINDINGS: NONVASCULAR: CT abdomen: Lung bases show some fibrotic change in bilateral lower lung zones with no effusion or dense infiltrate. Heart is enlarged with left atrial and ventricular enlargement. There are metallic densities at the aortic valve plane representing a valvular surgery. No pericardial thickening or effusion. I see no hiatal hernia. Stomach unremarkable. The liver, spleen, gallbladder, pancreas and adrenal glands are without acute findings. Kidneys show some mild scarring and lobation with some cortical atrophy. There is sinus lipomatosis but no hydronephrosis, solid mass or stone. There is a lower pole cyst on the left, 1.5 cm. No periaortic, other mesenteric or retroperitoneal pathologic sized lymphadenopathy. Small bowel loops grossly intact. Colon shows a few scattered diverticula without signs of diverticulitis or colitis. No inflammatory changes about the cecum. Lung window review of all CT slices abdomen and pelvis shows no perforation or free air. There is some mild colonic interposition between the anterior wall of the abdomen and chest with the liver. The bone windows show lumbar and lower thoracic spine with some degenerative changes but no compression deformity or destructive lesion of the lower thoracic ribs unremarkable. CT pelvis: Diverticulosis distal left colon and sigmoid without diverticulitis. Small bowel loops in the pelvis were unremarkable prostate is enlarged and shows nodular impression on the bladder base bladder shows some wall thickening in underfilling. No stone, dilated distal ureter or ureteral stone. There is omental fat distending the left inguinal canal without bowel herniation. The right inguinal region unremarkable. No inguinal or pelvic lymphadenopathy. Bone windows show SI joints with some degenerative changes. The sacrum pelvis and hips with degenerative changes but no destructive lesion or fracture. Lower extremities: The bilateral lower extremities show anterior and posterior compartment musculature in the thighs and calves symmetric. There is some subcutaneous edema in the calves in a symmetric fashion. No subcutaneous air, mass or fluid collection. Of bone windows show femoral shafts, knees, tibia fibula without fracture or destructive lesion. There is some degenerative changes in the mid feet. The feet visualized bony feet were otherwise grossly intact. VASCULAR: Abdominal aorta: The lower thoracic and abdominal aorta show atherosclerotic calcifications without aneurysm or dissection. There is atherosclerotic plaque at origins of the celiac axis, SMA, renal arteries and DEE. Flow is evident with contrast in each of these vessels however. Right iliac: Some atherosclerotic calcifications of the common and external iliac artery. The internal iliac takeoff is just past the bifurcation of the aorta. It has atherosclerotic calcification no stenosis or aneurysm in the iliac region. Left iliac: Some atherosclerotic calcifications of the common and external iliac artery. The internal iliac takeoff is just past the bifurcation of the aorta. It has atherosclerotic calcification no stenosis or aneurysm in the iliac region. Right femoral: There is atherosclerotic plaque in the distal common femoral and scattered throughout the superficial femoral artery in the thigh without any tight stenosis. Some mild plaque is seen at the origin of the profundus femoris. Left femoral: There is atherosclerotic plaque in the distal common femoral and scattered throughout the superficial femoral artery in the thigh without any tight stenosis. Some mild plaque is seen at the origin of the profundus femoris. Popliteal arteries: Both right and left popliteal arteries show minimal plaque without any significant stenosis. Right calf runoff: There is diffuse atherosclerotic plaque scattered in the right anterior tibial, posterior tibial and peroneal arteries. These would cause multiple stenoses. The peroneal artery does not reach the ankle. Left calf runoff: Diffuse atherosclerotic plaque is scattered throughout the left anterior tibial, posterior tibial and peroneal arteries. These would cause multiple stenoses. All 3 vessels are seen into the distal calf with the peroneal not visible from just above the ankle inferiorly. IMPRESSION: 1. Diffuse atherosclerotic disease of the abdominal aorta and less in the iliac vessels. There is also bilateral femoral artery atherosclerotic plaque without significant stenosis. Popliteal arteries show no stenosis. 2. Bilateral diffuse scattered plaques in the three-vessel runoff in both calves with the peroneal arteries not reaching the ankle on both sides. The other 2 vessels reach the ankle appropriately. Diffuse atherosclerotic plaques with contribute to some bilateral stenoses in these vessels. There is diffuse soft tissue swelling and edema subcutaneous tissue of both calves. 3. Cardiomegaly with left atrial and ventricular enlargement, prior aortic valve surgery and some basilar fibrotic changes noted. 4. No other significant or acute finding. <Electronically signed by Mingo Mayo > 02/27/21 [id number]
== END ==
LOC: M RAD 09:38
PROVIDERS: ATTEND Surgery
DX: I70.238 Atherosclerosis of native arteries of right leg with ulceration of other part of lower leg (principal); I70.0 Atherosclerosis of aorta; I51.7 Cardiomegaly; I70.203 Unspecified atherosclerosis of native arteries of extremities, bilateral legs; K57.30 Diverticulosis of large intestine without perforation or abscess without bleeding; Z98.890 Other specified postprocedural states
CPT/HCPCS: 75635; Q9967

== ENCOUNTER → 2021-03-11 | Outpatient (POV) | payer MEDICARE, OTHER ==
[~2021-03-11] VITALS: Ht 172.7 cm; Wt 78.6 kg
[~2021-03-11] MED LIST changes: -ISOVUE-370 76% 100ML VIAL As Ordered ONE
[2021-03-11 11:20] VITALS: BP 140/78
--- NOTE | 2021-03-13 13:41 | IRCOV ---
[facility] IR Consult Office Visit IR Consult Office Visit DATE: Mar 11, 2021 REASON FOR CONSULTATION/CHIEF COMPLAINT: Nonhealing wounds. HISTORY OF PRESENT ILLNESS: 80-year-old male diabetic, hypertensive with hyperlipidemia, ex-smoker, presents for bilateral lower extremity wounds, refractory to healing. He reports both his lower extremity swell and he does wear compression stockings. He has wounds on bilateral lower extremities, medial and lateral over the tibia. Patient denies intermittent claudication or rest pain with elevation. Patient denies prior cold leg, arterial thrombosis, gangrene or amputation. Patient does have history of extensive heart surgery, repaired coarctation of the aorta, 2 valve replacements and is on Coumadin. Patient denies prior myocardial infarction. He has suffered intracranial hemorrhage in 2012 and multiple mini strokes. Patient denies chest pain, shortness of breath, orthopnea or paroxysmal nocturnal dyspnea. ALLERGIES: Please see below. HOME MEDICATIONS: Please see below. 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 Open heart surgery Mitral and aortic valve replacement. Pacemaker placement FAMILY HISTORY: Noncontributory. SOCIAL HISTORY: Ex-smoker. Quit 50 years ago. Denies alcohol or drugs. REVIEW OF SYSTEMS: Otherwise negative. PHYSICAL EXAMINATION: VITAL SIGNS: Please see below. GENERAL APPEARANCE: Appears well. Comfortable at rest. HEENT: No scleral icterus. RESPIRATORY: Normal breathing at rest. CARDIOVASCULAR: Normal rate. Systolic murmur. ABDOMEN: Soft nontender. EXTREMITIES: Left lower extremity: Edema to the knee. Warm to touch. Color normal. DP/PT negative. Wounds over the medial and lateral tibia. Compression dressing in place. Right lower extremity: Edema to the knee. Warm to touch. Color normal. DP/PT negative. Wounds over the medial and lateral tibia. Compression dressing in place. NEUROLOGICAL: Alert and oriented. PSYCHIATRIC: Appropriate to circumstance. LABORATORY DATA: None recent. Imaging: I personally reviewed the CT abdomen pelvis with bilateral lower extremity runoff, performed 02/27/2021. Right lower extremity: Patent aortic bifurcation, right common iliac, external iliac, common femoral, superficial femoral, profunda femoris and popliteal artery. Below the knee, there is extens jaylen calcification of the below-knee vessels, limiting evaluation of underlying patency however, sections without concentric calcifications do appear patent and runoff into the foot. Left lower extremity: Patent left common iliac, external iliac, common femoral, superficial femoral, profunda femoris and popliteal artery. Below the knee, there is extensive calcification of the below-knee vessels, limiting evaluation of underlying patency however, sections without concentric calcifications do appear patent and runoff into the foot. ASSESSMENT/PLAN: 80-year-old male with bilateral lower extremity swelling and nonhealing wounds, located predominantly over the medial and lateral tibia. I'd like to start with a standing venous reflux ultrasound of the bilateral lower extremities to evaluate for saphenous venous insufficiency. If there is venous insufficiency this can be treated with EVLT. Given the CT findings and no current intermittent claudication or rest pain, I do not see a current indication for angiography. However, we will reconsider this after the findings of the venous ultrasound. I spent 30 minutes reviewing patient's records, imaging and in consultation with the patient. Thank you for this referral. CC Dr. Rain Allergies Coded Allergies: No Known Allergies (Unverified , 10/14/18) Home Medications Scheduled Ascorbic Acid (Vitamin C), 1 CAP PO DAILY, (Reported) Aspirin (Aspirin), 81 MG PO DAILY, (Reported) Digoxin (Digoxin), 125 MCG PO DAILY, (Reported) Furosemide (Furosemide), 20 MG PO BID, (Reported) Glucosamine/D3/Boswellia Jessica (Osteo Bi-Flex Caplet), 2 TAB PO QHS, (Reported) Levothyroxine Sodium (Levothyroxine Sodium), 25 MCG PO DAILY, (Reported) Lisinopril (Lisinopril), 40 MG PO DAILY, (Reported) Magnesium Oxide (Magnesium Oxide), 400 MG PO BID, (Reported) Multivitamins (Thera M Plus Tablet), 1 TAB PO DAILY, (Reported) Pantoprazole Sodium (Pantoprazole Sodium), 1 TAB PO DAILY, (Reported) Pravastatin Sodium (Pravastatin Sodium), 60 MG PO QHS, (Reported) Propylene Glycol/Peg 400/Pf (Systane 0.3-0.4% Eye Drop), 1 DROP OP BID, (Reported) Spironolactone (Spironolactone), 12.5 MG PO DAILY, (Reported) Ubidecarenone (Co Q-10), 200 MG PO DAILY, (Reported) Vitamin B Complex (Vitamin B Complex), 1 TAB PO DAILY, (Reported) Warfarin Sodium (Warfarin Sodium), 3 MG PO DAILY, (Reported) Scheduled PRN Acetaminophen (Acetaminophen), 500 MG PO Q6HP PRN for PAIN, (Reported) Nitroglycerin (Nitroglycerin), 0.4 MG SL PRN PRN for CHEST PAIN, (Reported) VS, I&O, 24H, Fishbone Vital Signs/I&O Vital Signs Date Time Temp Pulse Resp B/P (MAP) Pulse Ox O2 Delivery O2 Flow Rate FiO2 03/11/21 11:20 97.7 80 20 140/78 (98) 96 Room Air ARNOLDO DAVIDSON MD Mar 13, 2021 13:41
== END ==
LOC: M IRPOV 10:59
PROVIDERS: ATTEND Radiology Diagnostic Radiology
DX: L97.819 Non-pressure chronic ulcer of other part of right lower leg with unspecified severity (principal); L97.829 Non-pressure chronic ulcer of other part of left lower leg with unspecified severity; E11.622 Type 2 diabetes mellitus with other skin ulcer; E11.22 Type 2 diabetes mellitus with diabetic chronic kidney disease; E78.5 Hyperlipidemia, unspecified; I13.0 Hypertensive heart and chronic kidney disease with heart failure and stage 1 through stage 4 chronic kidney disease, or unspecified chronic kidney disease; I50.9 Heart failure, unspecified; N18.9 Chronic kidney disease, unspecified; Q25.1 Coarctation of aorta; Z79.01 Long term (current) use of anticoagulants; Z86.73 Personal history of transient ischemic attack (TIA), and cerebral infarction without residual deficits; Z87.891 Personal history of nicotine dependence; Z95.0 Presence of cardiac pacemaker; Z95.4 Presence of other heart-valve replacement

== ENCOUNTER → 2021-03-19 | Outpatient (CLI) | payer MEDICARE, OTHER ==
[~2021-03-19] MED LIST changes: +ASCO500T PO; +ASPI81TA26 PO; +COQ1200C3 PO; +FURO40TA2 PO; +PANT-23 PO; +PRAV40TA2 PO; -SYST1SOL4 OP; +SYST1SOL4 OU; +WARF-23 PO
== END ==
LOC: M RAD 12:53
PROVIDERS: ATTEND Radiology Diagnostic Radiology
DX: R60.0 Localized edema (principal); I10 Essential (primary) hypertension; L97.812 Non-pressure chronic ulcer of other part of right lower leg with fat layer exposed; M71.21 Synovial cyst of popliteal space [Baker], right knee; M71.22 Synovial cyst of popliteal space [Baker], left knee; Z98.890 Other specified postprocedural states

== ENCOUNTER 2021-06-03 12:29 | Inpatient (IN) | payer MEDICARE, OTHER ==
[~2021-06-03] VITALS: Ht 172.7 cm; Wt 79.5 kg
[~2021-06-03 12:29] MED LIST changes: -ASCO500T PO; -ASPI81TA26 PO; -COQ1200C3 PO; -FURO40TA2 PO; -PANT-23 PO; -PRAV40TA2 PO; -WARF-23 PO
[2021-06-03 13:44] LABS: BASO % 0.1 % (0.0-1.0); EOS # 0.3 10^3/uL (0.0-0.5); EOS % 1.3 % (0.0-3.0); HEMATOCRIT 38.5 % (42.0-52.0); HEMOGLOBIN 12.1 g/dl (13.5-17.5); LYMPH # 1.2 10^3/uL (1.5-5.0); MEAN CORPUSCULAR HEMOGLOBIN 27.7 pg (27.0-33.0); MEAN CORPUSCULAR HGB CONC 31.4 g/dl (32.0-36.5); MEAN CORPUSCULAR VOLUME 88.1 fl (80.0-96.0); MONO # 1.4 10^3/uL (0.0-0.8); MONO % 6.9 % (2.0-8.0); NEUTROPHILS # 17.1 10^3/uL (1.5-8.5); NEUTROPHILS % 84.9 % (36.0-66.0); PLATELET COUNT, AUTOMATED 337 10^3/uL (150-450); RED BLOOD COUNT 4.37 10^6/uL (4.30-6.10); WHITE BLOOD COUNT 20.1 10^3/uL (4.0-10.0)
[2021-06-03 13:55] LABS: INR 4.7; PROTHROMBIN TIME 44.3 SECONDS (12.7-14.5)
[2021-06-03] MEDS ORDERED: VANCOMYCIN HCL 1,500 MG in IV FLUID PLACE HOLDER 1 EA IV ONE (14:25)
[2021-06-03 14:27] LABS: ERYTHROCYTE SEDIMENTATION RATE 77 mm/hr (0-20)
[2021-06-03 14:32] LABS: ALBUMIN 2.5 GM/DL (3.2-5.2); BILIRUBIN,DIRECT 0.3 MG/DL (0.0-0.2); BILIRUBIN,TOTAL 0.5 MG/DL (0.2-1.0); C REACTIVE PROTEIN QUANTITATIV 19.2 MG/DL (0.00-0.30); CALCIUM LEVEL 8.6 MG/DL (8.8-10.2); CREATININE FOR GFR 1.78 MG/DL (0.70-1.30); DIGOXIN LEVEL 0.2 NG/ML (0.5-2.0); GLOMERULAR FILTRATION RATE 39.2 (>35); POTASSIUM SERUM 4.9 MEQ/L (3.5-5.1); TOTAL PROTEIN 6.9 GM/DL (6.4-8.2)
[2021-06-03] MEDS ORDERED: NS 1,000 ML IV ONE (14:40)
[2021-06-03] MEDS ORDERED: VANCOMYCIN HCL 750 MG, VIAL MATE ADAPTER 1 EACH in NS 250 ML IV ONE ×2 (15:00→16:00)
[2021-06-03 15:12] LABS: RSV AMPLIFICATION NEGATIVE (NEGATIVE)
[2021-06-03] MEDS ORDERED: PANT-23 PO (17:49)
[2021-06-03] MEDS ORDERED: ASCO500T PO (17:49)
[2021-06-03] MEDS ORDERED: SPIR-10 PO (17:49)
[2021-06-03] MEDS ORDERED: FURO40TA2 PO (17:49)
[2021-06-03] MEDS ORDERED: ASPI81TA26 PO (17:49)
[2021-06-03] MEDS ORDERED: COQ1200C3 PO (17:49)
[2021-06-03] MEDS ORDERED: WARF-23 PO (17:49)
[2021-06-03] MEDS ORDERED: PRAV40TA2 PO (17:49)
[2021-06-03] MEDS ORDERED: PRAV20TA2 PO (17:49)
[2021-06-03] MEDS ORDERED: HOME MED LIST COMPLETE! XX SCH (17:50)
[2021-06-03 19:49] LABS: APPEARANCE, URINE HAZY (CLEAR); BACTERIA, URINE AUTO NEGATIVE (NEGATIVE); BILIRUBIN, URINE AUTO NEGATIVE (NEGATIVE); BLOOD, URINE BLOOD NEGATIVE (NEGATIVE); COLOR, URINE YELLOW (YELLOW); GLUCOSE, URINE (UA) AUTO NEGATIVE (NEGATIVE); KETONE, URINE AUTO NEGATIVE (NEGATIVE); LEUKOCYTE ESTERASE, URINE AUTO TRACE (NEGATIVE); NITRITE, URINE AUTO NEGATIVE (NEGATIVE); PROTEIN, URINE AUTO NEGATIVE (NEGATIVE); RBC, URINE AUTO 1 /HPF (0-3); SPECIFIC GRAVITY URINE AUTO 1.016 (1.002-1.035); SQUAMOUS EPITHELIAL CELL UR AU 0 /HPF (0-6); UROBILINOGEN, URINE AUTO 0.2 mg/dL (0.0-2.0); WBC, URINE AUTO 1 /HPF (0-3)
[2021-06-03] MEDS: PIPERACILLIN/TAZOBACTAM SOD 4.5 GM in D5W MINI-BAG PLUS 50 ML IV SCH (19:55)
[2021-06-03 20:20] LABS: CALCIUM LEVEL 8.2 MG/DL (8.8-10.2); CREATININE FOR GFR 1.75 MG/DL (0.70-1.30)
[2021-06-03] MEDS: ASPIRIN 81MG ENTERIC TABLET PO SCH (21:01)
[2021-06-03] MEDS: PRAVASTATIN 20 MG TAB PO SCH (21:01)
[2021-06-04] VITALS (7 sets, daily range): BP systolic 104–114; BP diastolic 47–53
[2021-06-04] MEDS: CLINDAMYCIN 600 MG in IV 1 EA IV SCH ×3 (01:27→16:32)
[2021-06-04] MEDS: PIPERACILLIN/TAZOBACTAM SOD 4.5 GM in D5W MINI-BAG PLUS 50 ML IV SCH ×3 (02:55→17:25)
[2021-06-04] MEDS: LEVOTHYROXINE 25MCG TABLET (0.025MG) PO SCH (06:00)
[2021-06-04 07:01] LABS: HEMATOCRIT 35.6 % (42.0-52.0); HEMOGLOBIN 11.2 g/dl (13.5-17.5); MEAN CORPUSCULAR HEMOGLOBIN 27.3 pg (27.0-33.0); MEAN CORPUSCULAR HGB CONC 31.5 g/dl (32.0-36.5); MEAN CORPUSCULAR VOLUME 86.6 fl (80.0-96.0); PLATELET COUNT, AUTOMATED 350 10^3/uL (150-450); RED BLOOD COUNT 4.11 10^6/uL (4.30-6.10)
[2021-06-04 07:11] LABS: PROTHROMBIN TIME 49.5 SECONDS (12.7-14.5)
[2021-06-04] MEDS ORDERED: DEXTROSE 50% 50 ML SYRINGE As Ordered ONE (07:17)
[2021-06-04] MEDS ORDERED: GLUCOSE 4GM CHEW TABLET PO PRN (07:20)
[2021-06-04] MEDS: DEXTROSE 50% 50 ML SYRINGE IV PRN ×2 (07:20→09:59)
[2021-06-04] MEDS ORDERED: GLUCAGON INJ 1MG VIAL SC PRN (07:20)
[2021-06-04 07:27] LABS: CALCIUM LEVEL 8.8 MG/DL (8.8-10.2); CREATININE FOR GFR 1.66 MG/DL (0.70-1.30); GLOMERULAR FILTRATION RATE 42.5 (>35); POTASSIUM SERUM 5.1 MEQ/L (3.5-5.1)
[2021-06-04 07:54] LABS: INR 5.43
[2021-06-04 08:48] LABS: VANCOMYCIN RANDOM 13.5 UG/ML
[2021-06-04] MEDS ORDERED: SPIRONOLACTONE 12.5MG PER 1/2 TABLET PO SCH (09:00)
[2021-06-04] MEDS: CO-ENZYME Q10 50 MG CAP PO SCH (09:00)
[2021-06-04] MEDS ORDERED: lisinopriL 40MG TAB PO SCH (09:00)
[2021-06-04] MEDS ORDERED: FUROSEMIDE 40 MG TAB PO SCH (09:00)
[2021-06-04] MEDS: ASCORBIC ACID 500 MG TAB PO SCH (09:00)
[2021-06-04] MEDS: PANTOPRAZOLE 40MG TAB (PROTONIX) PO SCH (09:00)
[2021-06-04] MEDS ORDERED: LIDOCAINE 1% SDV 30ML VIAL As Ordered ONE (09:39)
[2021-06-04] MEDS ORDERED: BUPIVACAINE HCL 0.5% 30 ML VIAL As Ordered ONE (09:40)
[2021-06-04] MEDS ORDERED: propofoL 200 MG/20 ML VIAL As Ordered ONE (09:56)
[2021-06-04] MEDS ORDERED: LIDOCAINE 2% 100MG/5ML SDV (FOR ANES.) As Ordered ONE (09:56)
[2021-06-04] MEDS ORDERED: fentaNYL 100 MCG/2 ML INJECTION As Ordered ONE (09:57)
[2021-06-04] MEDS ORDERED: MIDAZOLAM INJ 2MG/2ML VIAL (J2250 PER 1MG) As Ordered ONE (09:57)
[2021-06-04] MEDS ORDERED: PHENYLephrine 500MCG 5ML (100MCG/ML) SYRINGE As Ordered ONE ×2 (11:01→11:25)
[2021-06-04] MEDS ORDERED: ePHEDrine SULFATE 25 MG/5 ML(5MG/ML) SYRINGE As Ordered ONE (11:03)
[2021-06-04] MEDS ORDERED: dexameTHASONE 4 MG/ML 1ML VIAL (J1100 PER 1MG) As Ordered ONE (11:04)
[2021-06-04] MEDS ORDERED: ONDANSETRON 4MG/2ML VIAL As Ordered ONE (11:06)
[2021-06-04] MEDS ORDERED: fentaNYL 100 MCG/2 ML INJECTION IV PRN (12:00)
[2021-06-04] MEDS ORDERED: LR 1,000 ML IV SCH (12:00)
[2021-06-04] MEDS ORDERED: ONDANSETRON 4MG/2ML VIAL IV PRN (12:00)
[2021-06-04] MEDS: FUROSEMIDE 100MG/10ML VIAL (J1940) IV ONE ×2 (14:03→14:12)
[2021-06-04] MEDS: VANCOMYCIN HCL 1,000 MG, VIAL MATE ADAPTER 1 EACH in NS 250 ML IV SCH (14:20)
[2021-06-04] MEDS ORDERED: SILVER NITRATE APPLICATOR As Ordered ONE (15:16)
[2021-06-04] MEDS ORDERED: SILVER NITRATE APPLICATOR TOP ONE (15:35)
[2021-06-04] MEDS ORDERED: FUROSEMIDE 40MG/4ML VIAL (J1940) IV ONE (17:15)
[2021-06-04] MEDS: ACETAMINOPHEN TAB 650MG DOSE (2X325MG) PO PRN (19:22)
[2021-06-04] MEDS: PRAVASTATIN 20 MG TAB PO SCH (22:21)
[2021-06-04] MEDS: ASPIRIN 81MG ENTERIC TABLET PO SCH (22:22)
[2021-06-04] MEDS: NORCO, ANEXSIA 5/325MG TABLET (HYDROcodone/ACETAMINOPHEN) PO PRN (22:25)
[2021-06-05 01:41] VITALS: BP 105/46
[2021-06-05] MEDS: CLINDAMYCIN 600 MG in IV 1 EA IV SCH ×2 (03:32→09:07)
[2021-06-05] MEDS: LEVOTHYROXINE 25MCG TABLET (0.025MG) PO SCH (06:08)
[2021-06-05] MEDS: PANTOPRAZOLE 40MG TAB (PROTONIX) PO SCH (09:08)
[2021-06-05] MEDS: ASCORBIC ACID 500 MG TAB PO SCH (09:08)
[2021-06-05] MEDS: CO-ENZYME Q10 50 MG CAP PO SCH (09:08)
[2021-06-05] MEDS: PIPERACILLIN/TAZOBACTAM SOD 4.5 GM in D5W MINI-BAG PLUS 50 ML IV SCH ×4 (09:08→18:18)
[2021-06-05] MEDS: NORCO, ANEXSIA 5/325MG TABLET (HYDROcodone/ACETAMINOPHEN) PO PRN ×2 (09:09→18:13)
[2021-06-05 09:12] LABS: HEMATOCRIT 29.8 % (42.0-52.0); HEMOGLOBIN 9.4 g/dl (13.5-17.5); MEAN CORPUSCULAR HEMOGLOBIN 27.7 pg (27.0-33.0); MEAN CORPUSCULAR HGB CONC 31.5 g/dl (32.0-36.5); MEAN CORPUSCULAR VOLUME 87.9 fl (80.0-96.0); PLATELET COUNT, AUTOMATED 353 10^3/uL (150-450); RED BLOOD COUNT 3.39 10^6/uL (4.30-6.10)
[2021-06-05 09:29] LABS: PROTHROMBIN TIME 54.1 SECONDS (12.7-14.5)
[2021-06-05 09:33] LABS: INR 6.1
[2021-06-05 09:34] LABS: CALCIUM LEVEL 8.3 MG/DL (8.8-10.2); CREATININE FOR GFR 1.85 MG/DL (0.70-1.30); GLOMERULAR FILTRATION RATE 37.5 (>35)
[2021-06-05 09:36] LABS: BILIRUBIN,TOTAL 0.6 MG/DL (0.2-1.0); CALCIUM LEVEL 8.4 MG/DL (8.8-10.2); CREATININE FOR GFR 1.88 MG/DL (0.70-1.30); GLOMERULAR FILTRATION RATE 36.8 (>35); POTASSIUM SERUM 5.9 MEQ/L (3.5-5.1); TOTAL PROTEIN 6.7 GM/DL (6.4-8.2)
[2021-06-05] MEDS ORDERED: FUROSEMIDE 20MG/2ML VIAL (J1940) IV ONE (11:00)
[2021-06-05] MEDS ORDERED: MORPHINE 2 MG/ML 1ML VIAL (J2270) IV ONE (11:50)
[2021-06-05] MEDS: VANCOMYCIN HCL 1,000 MG, VIAL MATE ADAPTER 1 EACH in NS 250 ML IV SCH (11:51)
[2021-06-05] MEDS ORDERED: MORPHINE 2 MG/ML 1ML VIAL (J2270) As Ordered ONE (11:53)
[2021-06-05] MEDS ORDERED: PHYTONADIONE 2.5 MG **1/2 TAB PO ONE (13:00)
[2021-06-05 14:50] VITALS: BP 71/47
[2021-06-05 15:20] VITALS: BP 122/52
[2021-06-05] MEDS ORDERED: SOD POLYSTYRENE SULFONATE SUSP 15 GM/60 ML UD PO ONE ×2 (16:00→18:20)
[2021-06-05 18:14] LABS: CALCIUM LEVEL 8.8 MG/DL (8.8-10.2); CREATININE FOR GFR 1.92 MG/DL (0.70-1.30); POTASSIUM SERUM 5.7 MEQ/L (3.5-5.1)
[2021-06-05] MEDS ORDERED: predniSONE 10 MG TAB PO ONE (18:35)
[2021-06-05] MEDS: ASPIRIN 81MG ENTERIC TABLET PO SCH (19:59)
[2021-06-05] MEDS: PRAVASTATIN 20 MG TAB PO SCH (19:59)
[2021-06-05 22:00] VITALS: BP 127/48
[2021-06-06] MEDS: PIPERACILLIN/TAZOBACTAM SOD 4.5 GM in D5W MINI-BAG PLUS 50 ML IV SCH ×3 (00:03→17:05)
[2021-06-06 03:31] LABS: CREATININE FOR GFR 1.88 MG/DL (0.70-1.30); GLOMERULAR FILTRATION RATE 36.8 (>35); POTASSIUM SERUM 5.7 MEQ/L (3.5-5.1)
[2021-06-06] MEDS: LEVOTHYROXINE 25MCG TABLET (0.025MG) PO SCH (05:10)
[2021-06-06 05:15] VITALS: BP 127/48
[2021-06-06] MEDS: CO-ENZYME Q10 50 MG CAP PO SCH (07:31)
[2021-06-06] MEDS: ASCORBIC ACID 500 MG TAB PO SCH (07:31)
[2021-06-06] MEDS: PANTOPRAZOLE 40MG TAB (PROTONIX) PO SCH (07:32)
[2021-06-06] MEDS: NORCO, ANEXSIA 5/325MG TABLET (HYDROcodone/ACETAMINOPHEN) PO PRN ×2 (07:32→13:04)
[2021-06-06 07:43] LABS: HEMATOCRIT 28.2 % (42.0-52.0); MEAN CORPUSCULAR HEMOGLOBIN 27.8 pg (27.0-33.0); MEAN CORPUSCULAR HGB CONC 31.9 g/dl (32.0-36.5); PLATELET COUNT, AUTOMATED 357 10^3/uL (150-450); RED BLOOD COUNT 3.24 10^6/uL (4.30-6.10); WHITE BLOOD COUNT 21.2 10^3/uL (4.0-10.0)
[2021-06-06 07:53] LABS: INR 2.33; PROTHROMBIN TIME 25.9 SECONDS (12.7-14.5)
[2021-06-06 08:03] LABS: CALCIUM LEVEL 8.4 MG/DL (8.8-10.2); CREATININE FOR GFR 1.77 MG/DL (0.70-1.30); GLOMERULAR FILTRATION RATE 39.5 (>35)
[2021-06-06 08:06] LABS: C REACTIVE PROTEIN QUANTITATIV 9.53 MG/DL (0.00-0.30); URIC ACID 8.8 MG/DL (3.5-7.2)
[2021-06-06] MEDS ORDERED: SOD POLYSTYRENE SULFONATE SUSP 15 GM/60 ML UD PO ONE (11:00)
[2021-06-06] MEDS ORDERED: VANCOMYCIN HCL 750 MG, VIAL MATE ADAPTER 1 EACH in NS 250 ML IV SCH (12:00)
[2021-06-06 13:59] LABS: CALCIUM LEVEL 8.8 MG/DL (8.8-10.2); CREATININE FOR GFR 1.79 MG/DL (0.70-1.30); POTASSIUM SERUM 4.9 MEQ/L (3.5-5.1)
[2021-06-06 14:00] VITALS: BP 135/90
[2021-06-06] MEDS: PRAVASTATIN 20 MG TAB PO SCH (20:36)
[2021-06-06] MEDS: ASPIRIN 81MG ENTERIC TABLET PO SCH (20:37)
[2021-06-06] MEDS: ACETAMINOPHEN TAB 650MG DOSE (2X325MG) PO PRN (20:37)
[2021-06-06 22:00] VITALS: BP 137/46
[2021-06-07] MEDS: PIPERACILLIN/TAZOBACTAM SOD 4.5 GM in D5W MINI-BAG PLUS 50 ML IV SCH ×3 (01:08→16:56)
[2021-06-07] MEDS: ACETAMINOPHEN TAB 650MG DOSE (2X325MG) PO PRN ×2 (05:11→21:17)
[2021-06-07] MEDS: LEVOTHYROXINE 25MCG TABLET (0.025MG) PO SCH (05:11)
[2021-06-07 06:00] VITALS: BP 134/58
[2021-06-07 06:56] LABS: INR 1.51; PROTHROMBIN TIME 18.6 SECONDS (12.7-14.5)
[2021-06-07 07:40] LABS: BASO # 0.1 10^3/uL (0.0-0.2); BASO % 0.5 % (0.0-1.0); CALCIUM LEVEL 8.3 MG/DL (8.8-10.2); CREATININE FOR GFR 1.58 MG/DL (0.70-1.30); EOS # 0.7 10^3/uL (0.0-0.5); EOS % 4.6 % (0.0-3.0); HEMOGLOBIN 8.8 g/dl (13.5-17.5); LYMPH # 1.9 10^3/uL (1.5-5.0); LYMPH % 12.5 % (24.0-44.0); MEAN CORPUSCULAR HEMOGLOBIN 27.6 pg (27.0-33.0); MEAN CORPUSCULAR HGB CONC 31.4 g/dl (32.0-36.5); MEAN CORPUSCULAR VOLUME 87.8 fl (80.0-96.0); MONO # 0.9 10^3/uL (0.0-0.8); MONO % 5.8 % (2.0-8.0); NEUTROPHILS # 11.1 10^3/uL (1.5-8.5); NEUTROPHILS % 72.7 % (36.0-66.0); PLATELET COUNT, AUTOMATED 364 10^3/uL (150-450); POTASSIUM SERUM 4.9 MEQ/L (3.5-5.1); RED BLOOD COUNT 3.19 10^6/uL (4.30-6.10); WHITE BLOOD COUNT 15.3 10^3/uL (4.0-10.0)
[2021-06-07] MEDS: ASCORBIC ACID 500 MG TAB PO SCH (09:14)
[2021-06-07] MEDS: PANTOPRAZOLE 40MG TAB (PROTONIX) PO SCH (09:14)
[2021-06-07] MEDS: CO-ENZYME Q10 50 MG CAP PO SCH (09:14)
[2021-06-07] MEDS: predniSONE 20 MG TAB PO SCH (09:14)
[2021-06-07] MEDS: ENOXAPARIN 80MG/0.8ML SYRINGE (J1650 PER 10MG) SC SCH ×2 (09:15→21:18)
[2021-06-07] MEDS ORDERED: VANCOMYCIN HCL 750 MG in IV FLUID PLACE HOLDER 1 EA IV SCH (10:45)
[2021-06-07] MEDS: VANCOMYCIN HCL 750 MG, VIAL MATE ADAPTER 1 EACH in NS 250 ML IV SCH (12:00)
[2021-06-07 14:00] VITALS: BP 144/53
[2021-06-07] MEDS: ASPIRIN 81MG ENTERIC TABLET PO SCH (21:17)
[2021-06-07] MEDS: PRAVASTATIN 20 MG TAB PO SCH (21:17)
[2021-06-07 22:00] VITALS: BP 133/49
[2021-06-08] VITALS (9 sets, daily range): BP systolic 93–177; BP diastolic 49–72
[2021-06-08] MEDS: PIPERACILLIN/TAZOBACTAM SOD 4.5 GM in D5W MINI-BAG PLUS 50 ML IV SCH ×4 (00:24→23:59)
[2021-06-08] MEDS: LEVOTHYROXINE 25MCG TABLET (0.025MG) PO SCH (05:11)
[2021-06-08 06:27] LABS: BASO # 0.1 10^3/uL (0.0-0.2); BASO % 0.4 % (0.0-1.0); EOS # 0.4 10^3/uL (0.0-0.5); HEMATOCRIT 28.5 % (42.0-52.0); HEMOGLOBIN 8.9 g/dl (13.5-17.5); LYMPH # 1.8 10^3/uL (1.5-5.0); LYMPH % 10.6 % (24.0-44.0); MEAN CORPUSCULAR HEMOGLOBIN 27.9 pg (27.0-33.0); MEAN CORPUSCULAR HGB CONC 31.2 g/dl (32.0-36.5); MEAN CORPUSCULAR VOLUME 89.3 fl (80.0-96.0); MONO # 0.8 10^3/uL (0.0-0.8); MONO % 4.8 % (2.0-8.0); NEUTROPHILS # 13.6 10^3/uL (1.5-8.5); NEUTROPHILS % 78.8 % (36.0-66.0); PLATELET COUNT, AUTOMATED 391 10^3/uL (150-450); RED BLOOD COUNT 3.19 10^6/uL (4.30-6.10); WHITE BLOOD COUNT 17.2 10^3/uL (4.0-10.0)
[2021-06-08 06:38] LABS: INR 1.29; PROTHROMBIN TIME 16.5 SECONDS (12.7-14.5)
[2021-06-08 06:48] LABS: C REACTIVE PROTEIN QUANTITATIV 2.88 MG/DL (0.00-0.30); CALCIUM LEVEL 8.3 MG/DL (8.8-10.2); CREATININE FOR GFR 1.52 MG/DL (0.70-1.30); GLOMERULAR FILTRATION RATE 47.1 (>35)
[2021-06-08] MEDS ORDERED: fentaNYL 100 MCG/2 ML INJECTION As Ordered ONE (07:07)
[2021-06-08] MEDS ORDERED: MIDAZOLAM INJ 2MG/2ML VIAL (J2250 PER 1MG) As Ordered ONE (07:07)
[2021-06-08] MEDS ORDERED: ONDANSETRON 4MG/2ML VIAL As Ordered ONE (07:08)
[2021-06-08] MEDS ORDERED: propofoL 200 MG/20 ML VIAL As Ordered ONE (07:08)
[2021-06-08] MEDS ORDERED: LIDOCAINE 2% 100MG/5ML SDV (FOR ANES.) As Ordered ONE (07:08)
[2021-06-08] MEDS ORDERED: BUPIVACAINE HCL 0.5% 10ML VIAL As Ordered ONE (08:03)
[2021-06-08] MEDS ORDERED: LIDOCAINE 1% MDV 20ML VIAL As Ordered ONE (08:03)
[2021-06-08] MEDS ORDERED: ONDANSETRON 4MG/2ML VIAL IV PRN (09:45)
[2021-06-08] MEDS ORDERED: oxyCODONE 5MG TAB PO PRN (09:45)
[2021-06-08] MEDS: predniSONE 20 MG TAB PO SCH (10:23)
[2021-06-08] MEDS: PANTOPRAZOLE 40MG TAB (PROTONIX) PO SCH (10:23)
[2021-06-08] MEDS: ASCORBIC ACID 500 MG TAB PO SCH (10:23)
[2021-06-08] MEDS: CO-ENZYME Q10 50 MG CAP PO SCH (10:23)
[2021-06-08] MEDS: VANCOMYCIN HCL 750 MG, VIAL MATE ADAPTER 1 EACH in NS 250 ML IV SCH (11:48)
[2021-06-08] MEDS: ASPIRIN 81MG ENTERIC TABLET PO SCH (21:52)
[2021-06-08] MEDS: PRAVASTATIN 20 MG TAB PO SCH (21:52)
[2021-06-09] VITALS (7 sets, daily range): BP systolic 105–149; BP diastolic 51–65
[2021-06-09] MEDS: LEVOTHYROXINE 25MCG TABLET (0.025MG) PO SCH (05:02)
[2021-06-09] MEDS: ACETAMINOPHEN TAB 650MG DOSE (2X325MG) PO PRN (05:03)
[2021-06-09 07:13] LABS: BASO # 0.1 10^3/uL (0.0-0.2); BASO % 0.4 % (0.0-1.0); EOS # 0.5 10^3/uL (0.0-0.5); EOS % 2.5 % (0.0-3.0); HEMATOCRIT 26.7 % (42.0-52.0); HEMOGLOBIN 8.2 g/dl (13.5-17.5); LYMPH # 2.3 10^3/uL (1.5-5.0); LYMPH % 11.9 % (24.0-44.0); MEAN CORPUSCULAR HEMOGLOBIN 27.8 pg (27.0-33.0); MEAN CORPUSCULAR HGB CONC 30.7 g/dl (32.0-36.5); MEAN CORPUSCULAR VOLUME 90.5 fl (80.0-96.0); MONO # 1.2 10^3/uL (0.0-0.8); NEUTROPHILS # 14.7 10^3/uL (1.5-8.5); NEUTROPHILS % 76.2 % (36.0-66.0); PLATELET COUNT, AUTOMATED 407 10^3/uL (150-450); RED BLOOD COUNT 2.95 10^6/uL (4.30-6.10); WHITE BLOOD COUNT 19.3 10^3/uL (4.0-10.0)
[2021-06-09 07:23] LABS: INR 1.23; PROTHROMBIN TIME 15.9 SECONDS (12.7-14.5)
[2021-06-09 07:39] LABS: C REACTIVE PROTEIN QUANTITATIV 1.45 MG/DL (0.00-0.30); CALCIUM LEVEL 8.5 MG/DL (8.8-10.2); CREATININE FOR GFR 1.44 MG/DL (0.70-1.30); GLOMERULAR FILTRATION RATE 50.1 (>35); MAGNESIUM LEVEL 1.8 MG/DL (1.8-2.4); POTASSIUM SERUM 5.1 MEQ/L (3.5-5.1)
[2021-06-09] MEDS: CO-ENZYME Q10 50 MG CAP PO SCH (08:19)
[2021-06-09] MEDS: ASCORBIC ACID 500 MG TAB PO SCH (08:19)
[2021-06-09] MEDS: PANTOPRAZOLE 40MG TAB (PROTONIX) PO SCH (08:19)
[2021-06-09] MEDS: PIPERACILLIN/TAZOBACTAM SOD 4.5 GM in D5W MINI-BAG PLUS 50 ML IV SCH ×2 (08:20→15:48)
[2021-06-09] MEDS: FUROSEMIDE 40 MG TAB PO SCH (12:00)
[2021-06-09 12:04] LABS: HEMATOCRIT 25.6 % (42.0-52.0); HEMOGLOBIN 7.7 g/dl (13.5-17.5)
[2021-06-09] MEDS: VANCOMYCIN HCL 750 MG, VIAL MATE ADAPTER 1 EACH in NS 250 ML IV SCH (12:54)
[2021-06-09] MEDS: ASPIRIN 81MG ENTERIC TABLET PO SCH (19:44)
[2021-06-09] MEDS: PRAVASTATIN 20 MG TAB PO SCH (19:44)
[2021-06-09] MEDS: ENOXAPARIN 80MG/0.8ML SYRINGE (J1650 PER 10MG) SC SCH (23:19)
[2021-06-10] VITALS (7 sets, daily range): BP systolic 122–155; BP diastolic 51–60
[2021-06-10] MEDS: LEVOTHYROXINE 25MCG TABLET (0.025MG) PO SCH (05:50)
[2021-06-10 08:30] LABS: INR 1.19; PROTHROMBIN TIME 15.5 SECONDS (12.7-14.5)
[2021-06-10 08:32] LABS: BASO # 0.1 10^3/uL (0.0-0.2); BASO % 0.7 % (0.0-1.0); EOS # 0.8 10^3/uL (0.0-0.5); EOS % 4.2 % (0.0-3.0); HEMATOCRIT 32.1 % (42.0-52.0); HEMOGLOBIN 10.2 g/dl (13.5-17.5); LYMPH # 1.8 10^3/uL (1.5-5.0); LYMPH % 9.1 % (24.0-44.0); MEAN CORPUSCULAR HEMOGLOBIN 28.6 pg (27.0-33.0); MEAN CORPUSCULAR HGB CONC 31.8 g/dl (32.0-36.5); MEAN CORPUSCULAR VOLUME 89.9 fl (80.0-96.0); MONO % 5.3 % (2.0-8.0); NEUTROPHILS # 15.1 10^3/uL (1.5-8.5); NEUTROPHILS % 78.3 % (36.0-66.0); PLATELET COUNT, AUTOMATED 377 10^3/uL (150-450); RED BLOOD COUNT 3.57 10^6/uL (4.30-6.10); WHITE BLOOD COUNT 19.3 10^3/uL (4.0-10.0)
[2021-06-10 08:49] LABS: C REACTIVE PROTEIN QUANTITATIV 1.06 MG/DL (0.00-0.30); CALCIUM LEVEL 8.8 MG/DL (8.8-10.2); CREATININE FOR GFR 1.37 MG/DL (0.70-1.30); GLOMERULAR FILTRATION RATE 53.1 (>35); MAGNESIUM LEVEL 1.6 MG/DL (1.8-2.4); POTASSIUM SERUM 5.5 MEQ/L (3.5-5.1)
[2021-06-10] MEDS: CO-ENZYME Q10 50 MG CAP PO SCH (10:07)
[2021-06-10] MEDS: ENOXAPARIN 80MG/0.8ML SYRINGE (J1650 PER 10MG) SC SCH ×2 (10:07→22:01)
[2021-06-10] MEDS: ASCORBIC ACID 500 MG TAB PO SCH (10:08)
[2021-06-10] MEDS: PANTOPRAZOLE 40MG TAB (PROTONIX) PO SCH (10:08)
[2021-06-10] MEDS: FUROSEMIDE 40 MG TAB PO SCH (10:08)
[2021-06-10] MEDS: allopurinoL 100 MG TAB PO SCH (11:23)
[2021-06-10] MEDS: VANCOMYCIN HCL 750 MG, VIAL MATE ADAPTER 1 EACH in NS 250 ML IV SCH (13:52)
[2021-06-10] MEDS: ASPIRIN 81MG ENTERIC TABLET PO SCH (22:01)
[2021-06-10] MEDS: PRAVASTATIN 20 MG TAB PO SCH (22:01)
[2021-06-10] MEDS: NYSTATIN 100,000 UNITS/GM TOPICAL PWD 15 GM TOP SCH (22:01)
[2021-06-11] MEDS: LEVOTHYROXINE 25MCG TABLET (0.025MG) PO SCH (05:27)
[2021-06-11 06:00] VITALS: BP 133/47
[2021-06-11 06:35] LABS: BASO # 0.1 10^3/uL (0.0-0.2); BASO % 0.7 % (0.0-1.0); EOS # 0.6 10^3/uL (0.0-0.5); EOS % 3.5 % (0.0-3.0); HEMATOCRIT 30.1 % (42.0-52.0); HEMOGLOBIN 9.4 g/dl (13.5-17.5); LYMPH # 1.8 10^3/uL (1.5-5.0); LYMPH % 10.7 % (24.0-44.0); MEAN CORPUSCULAR HEMOGLOBIN 27.9 pg (27.0-33.0); MEAN CORPUSCULAR HGB CONC 31.2 g/dl (32.0-36.5); MEAN CORPUSCULAR VOLUME 89.3 fl (80.0-96.0); MONO # 0.9 10^3/uL (0.0-0.8); MONO % 5.6 % (2.0-8.0); NEUTROPHILS # 13.1 10^3/uL (1.5-8.5); PLATELET COUNT, AUTOMATED 338 10^3/uL (150-450); RED BLOOD COUNT 3.37 10^6/uL (4.30-6.10); WHITE BLOOD COUNT 16.9 10^3/uL (4.0-10.0)
[2021-06-11 07:06] LABS: C REACTIVE PROTEIN QUANTITATIV 1.44 MG/DL (0.00-0.30); CALCIUM LEVEL 8.7 MG/DL (8.8-10.2); CREATININE FOR GFR 1.31 MG/DL (0.70-1.30); GLOMERULAR FILTRATION RATE 55.9 (>35); MAGNESIUM LEVEL 1.5 MG/DL (1.8-2.4); POTASSIUM SERUM 4.9 MEQ/L (3.5-5.1)
[2021-06-11] MEDS: NYSTATIN 100,000 UNITS/GM TOPICAL PWD 15 GM TOP SCH ×2 (08:05→21:08)
[2021-06-11] MEDS: CO-ENZYME Q10 50 MG CAP PO SCH (08:05)
[2021-06-11] MEDS: FUROSEMIDE 40 MG TAB PO SCH (08:05)
[2021-06-11] MEDS: PANTOPRAZOLE 40MG TAB (PROTONIX) PO SCH (08:05)
[2021-06-11] MEDS: allopurinoL 100 MG TAB PO SCH (08:05)
[2021-06-11] MEDS: ASCORBIC ACID 500 MG TAB PO SCH (08:05)
[2021-06-11] MEDS: ENOXAPARIN 80MG/0.8ML SYRINGE (J1650 PER 10MG) SC SCH (09:00)
[2021-06-11] MEDS: VANCOMYCIN HCL 750 MG, VIAL MATE ADAPTER 1 EACH in NS 250 ML IV SCH (11:24)
[2021-06-11] MEDS ORDERED: propofoL 200 MG/20 ML VIAL As Ordered ONE (15:21)
[2021-06-11] MEDS ORDERED: LIDOCAINE 2% 100MG/5ML SDV (FOR ANES.) As Ordered ONE (15:21)
[2021-06-11] MEDS ORDERED: BUPIVACAINE HCL 0.5% 30 ML VIAL As Ordered ONE (15:43)
[2021-06-11] MEDS ORDERED: LIDOCAINE 1% SDV 30ML VIAL As Ordered ONE (15:43)
[2021-06-11] MEDS ORDERED: ONDANSETRON 4MG/2ML VIAL IV PRN (16:45)
[2021-06-11] MEDS ORDERED: fentaNYL 100 MCG/2 ML INJECTION IV PRN (16:45)
[2021-06-11] MEDS ORDERED: PERCOCET 5MG/325MG TAB PO PRN (16:45)
[2021-06-11] MEDS ORDERED: LR 1,000 ML IV SCH (16:45)
[2021-06-11 17:30] VITALS: BP 146/54
[2021-06-11 18:00] VITALS: BP 145/64
[2021-06-11 19:00] VITALS: BP 136/81
[2021-06-11] MEDS: PRAVASTATIN 20 MG TAB PO SCH (21:07)
[2021-06-11] MEDS: NORCO, ANEXSIA 5/325MG TABLET (HYDROcodone/ACETAMINOPHEN) PO PRN (21:07)
[2021-06-11] MEDS: ASPIRIN 81MG ENTERIC TABLET PO SCH (21:08)
[2021-06-11 22:00] VITALS: BP 135/57
[2021-06-12 02:00] VITALS: BP 117/47
[2021-06-12] MEDS: LEVOTHYROXINE 25MCG TABLET (0.025MG) PO SCH (05:36)
[2021-06-12 06:00] VITALS: BP 125/49
[2021-06-12 06:34] LABS: BASO # 0.1 10^3/uL (0.0-0.2); BASO % 0.7 % (0.0-1.0); EOS # 0.5 10^3/uL (0.0-0.5); EOS % 3.3 % (0.0-3.0); HEMATOCRIT 30.2 % (42.0-52.0); HEMOGLOBIN 9.4 g/dl (13.5-17.5); LYMPH # 1.6 10^3/uL (1.5-5.0); LYMPH % 11.2 % (24.0-44.0); MEAN CORPUSCULAR HEMOGLOBIN 28.6 pg (27.0-33.0); MEAN CORPUSCULAR HGB CONC 31.1 g/dl (32.0-36.5); MEAN CORPUSCULAR VOLUME 91.8 fl (80.0-96.0); MONO # 0.9 10^3/uL (0.0-0.8); NEUTROPHILS # 11.1 10^3/uL (1.5-8.5); NEUTROPHILS % 77.4 % (36.0-66.0); PLATELET COUNT, AUTOMATED 314 10^3/uL (150-450); RED BLOOD COUNT 3.29 10^6/uL (4.30-6.10); WHITE BLOOD COUNT 14.4 10^3/uL (4.0-10.0)
[2021-06-12 06:56] LABS: C REACTIVE PROTEIN QUANTITATIV 1.29 MG/DL (0.00-0.30); CALCIUM LEVEL 8.6 MG/DL (8.8-10.2); CREATININE FOR GFR 1.26 MG/DL (0.70-1.30); GLOMERULAR FILTRATION RATE 58.5 (>35); MAGNESIUM LEVEL 1.6 MG/DL (1.8-2.4); POTASSIUM SERUM 4.2 MEQ/L (3.5-5.1)
[2021-06-12] MEDS: CO-ENZYME Q10 50 MG CAP PO SCH (08:44)
[2021-06-12] MEDS: PANTOPRAZOLE 40MG TAB (PROTONIX) PO SCH (08:44)
[2021-06-12] MEDS: HumaLOG INSULIN (NovoLOG) PER UNIT SC SCH ×4 (08:44→21:00)
[2021-06-12] MEDS: FUROSEMIDE 40 MG TAB PO SCH (08:45)
[2021-06-12] MEDS: ASCORBIC ACID 500 MG TAB PO SCH (08:45)
[2021-06-12] MEDS: NYSTATIN 100,000 UNITS/GM TOPICAL PWD 15 GM TOP SCH ×2 (08:45→21:05)
[2021-06-12] MEDS: allopurinoL 100 MG TAB PO SCH (08:45)
[2021-06-12] MEDS ORDERED: MAG SULF 1GM/100ML (MAG RUN) 1 GM in IV 1 EA IV ONE (09:20)
[2021-06-12] MEDS: ENOXAPARIN 80MG/0.8ML SYRINGE (J1650 PER 10MG) SC SCH ×2 (09:31→21:24)
[2021-06-12 10:00] VITALS: BP 129/56
[2021-06-12] MEDS: VANCOMYCIN HCL 750 MG, VIAL MATE ADAPTER 1 EACH in NS 250 ML IV SCH (11:46)
[2021-06-12 14:00] VITALS: BP 128/49
[2021-06-12 20:55] VITALS: BP 135/43
[2021-06-12] MEDS: ASPIRIN 81MG ENTERIC TABLET PO SCH (21:05)
[2021-06-12] MEDS: PRAVASTATIN 20 MG TAB PO SCH (21:05)
[2021-06-13] MEDS: LEVOTHYROXINE 25MCG TABLET (0.025MG) PO SCH (05:10)
[2021-06-13 06:06] LABS: BASO # 0.1 10^3/uL (0.0-0.2); BASO % 0.8 % (0.0-1.0); EOS # 0.4 10^3/uL (0.0-0.5); EOS % 3.4 % (0.0-3.0); HEMATOCRIT 29.6 % (42.0-52.0); HEMOGLOBIN 9.2 g/dl (13.5-17.5); LYMPH # 1.4 10^3/uL (1.5-5.0); MEAN CORPUSCULAR HEMOGLOBIN 28.3 pg (27.0-33.0); MEAN CORPUSCULAR HGB CONC 31.1 g/dl (32.0-36.5); MEAN CORPUSCULAR VOLUME 91.1 fl (80.0-96.0); MONO # 0.8 10^3/uL (0.0-0.8); MONO % 6.1 % (2.0-8.0); NEUTROPHILS # 9.9 10^3/uL (1.5-8.5); NEUTROPHILS % 77.7 % (36.0-66.0); PLATELET COUNT, AUTOMATED 307 10^3/uL (150-450); RED BLOOD COUNT 3.25 10^6/uL (4.30-6.10); WHITE BLOOD COUNT 12.8 10^3/uL (4.0-10.0)
[2021-06-13 06:20] LABS: C REACTIVE PROTEIN QUANTITATIV 1.61 MG/DL (0.00-0.30); CALCIUM LEVEL 8.4 MG/DL (8.8-10.2); CREATININE FOR GFR 1.25 MG/DL (0.70-1.30); MAGNESIUM LEVEL 1.6 MG/DL (1.8-2.4); POTASSIUM SERUM 4.4 MEQ/L (3.5-5.1)
[2021-06-13 06:21] VITALS: BP 105/63
[2021-06-13] MEDS: HumaLOG INSULIN (NovoLOG) PER UNIT SC SCH ×4 (08:14→20:53)
[2021-06-13] MEDS: ENOXAPARIN 80MG/0.8ML SYRINGE (J1650 PER 10MG) SC SCH ×2 (08:14→20:53)
[2021-06-13] MEDS: CO-ENZYME Q10 50 MG CAP PO SCH (08:15)
[2021-06-13] MEDS: ASCORBIC ACID 500 MG TAB PO SCH (08:17)
[2021-06-13] MEDS: PANTOPRAZOLE 40MG TAB (PROTONIX) PO SCH (08:18)
[2021-06-13] MEDS: FUROSEMIDE 40 MG TAB PO SCH (08:18)
[2021-06-13] MEDS: allopurinoL 100 MG TAB PO SCH (08:19)
[2021-06-13] MEDS ORDERED: ACETAMINOPHEN 500 MG TAB PO ONE (10:45)
[2021-06-13] MEDS ORDERED: MAG SULF 1GM/100ML (MAG RUN) 1 GM in IV 1 EA IV ONE (11:00)
[2021-06-13] MEDS: NYSTATIN 100,000 UNITS/GM TOPICAL PWD 15 GM TOP SCH ×2 (11:10→20:54)
[2021-06-13] MEDS: LINEZOLID 600MG TABLET (ZYVOX) PO SCH ×2 (12:34→20:53)
[2021-06-13] MEDS: ANALGESIC BALM CRM 3OZ TOP SCH ×3 (12:36→20:53)
[2021-06-13 14:00] VITALS: BP 110/45
[2021-06-13] MEDS: ACETAMINOPHEN 500 MG TAB PO SCH (17:44)
[2021-06-13 20:20] VITALS: BP 162/49
[2021-06-13] MEDS: ASPIRIN 81MG ENTERIC TABLET PO SCH (20:53)
[2021-06-13] MEDS: PRAVASTATIN 20 MG TAB PO SCH (20:54)
[2021-06-14] MEDS: ACETAMINOPHEN 500 MG TAB PO SCH ×3 (01:21→17:17)
[2021-06-14 06:16] VITALS: BP 139/55
[2021-06-14] MEDS: LEVOTHYROXINE 25MCG TABLET (0.025MG) PO SCH (06:51)
[2021-06-14 08:04] LABS: BASO # 0.1 10^3/uL (0.0-0.2); BASO % 0.9 % (0.0-1.0); EOS # 0.5 10^3/uL (0.0-0.5); EOS % 4.8 % (0.0-3.0); HEMOGLOBIN 9.5 g/dl (13.5-17.5); LYMPH # 1.6 10^3/uL (1.5-5.0); LYMPH % 14.1 % (24.0-44.0); MEAN CORPUSCULAR HEMOGLOBIN 28.2 pg (27.0-33.0); MEAN CORPUSCULAR HGB CONC 30.6 g/dl (32.0-36.5); MONO # 0.7 10^3/uL (0.0-0.8); MONO % 5.9 % (2.0-8.0); NEUTROPHILS # 8.2 10^3/uL (1.5-8.5); NEUTROPHILS % 73.5 % (36.0-66.0); PLATELET COUNT, AUTOMATED 311 10^3/uL (150-450); RED BLOOD COUNT 3.37 10^6/uL (4.30-6.10); WHITE BLOOD COUNT 11.1 10^3/uL (4.0-10.0)
[2021-06-14 08:24] LABS: BLOOD UREA NITROGEN 25 MG/DL (7-18); CALCIUM LEVEL 8.9 MG/DL (8.8-10.2); CARBON DIOXIDE LEVEL 22 MEQ/L (21-32); CHLORIDE LEVEL 112 MEQ/L (98-107); CREATININE FOR GFR 1.22 MG/DL (0.70-1.30); GLOMERULAR FILTRATION RATE > 60.0 (>35); GLUCOSE, FASTING 111 MG/DL (70-100); MAGNESIUM LEVEL 1.7 MG/DL (1.8-2.4); POTASSIUM SERUM 4.1 MEQ/L (3.5-5.1); SODIUM LEVEL 143 MEQ/L (136-145)
[2021-06-14] MEDS: ANALGESIC BALM CRM 3OZ TOP SCH ×4 (09:00→21:40)
[2021-06-14] MEDS: ENOXAPARIN 80MG/0.8ML SYRINGE (J1650 PER 10MG) SC SCH ×2 (09:29→21:41)
[2021-06-14] MEDS: HumaLOG INSULIN (NovoLOG) PER UNIT SC SCH ×4 (09:30→21:00)
[2021-06-14] MEDS: CO-ENZYME Q10 50 MG CAP PO SCH (09:31)
[2021-06-14] MEDS: allopurinoL 100 MG TAB PO SCH (09:31)
[2021-06-14] MEDS: LINEZOLID 600MG TABLET (ZYVOX) PO SCH ×2 (09:31→21:41)
[2021-06-14] MEDS: PANTOPRAZOLE 40MG TAB (PROTONIX) PO SCH (09:31)
[2021-06-14] MEDS: ASCORBIC ACID 500 MG TAB PO SCH (09:31)
[2021-06-14] MEDS: FUROSEMIDE 40 MG TAB PO SCH (09:32)
[2021-06-14] MEDS: NYSTATIN 100,000 UNITS/GM TOPICAL PWD 15 GM TOP SCH ×2 (09:32→21:42)
[2021-06-14 09:33] VITALS: BP 147/66
[2021-06-14 14:00] VITALS: BP 126/96
[2021-06-14] MEDS: ASPIRIN 81MG ENTERIC TABLET PO SCH (21:41)
[2021-06-14] MEDS: PRAVASTATIN 20 MG TAB PO SCH (21:41)
[2021-06-14 22:00] VITALS: BP 146/60
[2021-06-15] MEDS: ACETAMINOPHEN 500 MG TAB PO SCH ×3 (02:20→17:49)
[2021-06-15] MEDS: LEVOTHYROXINE 25MCG TABLET (0.025MG) PO SCH (05:27)
[2021-06-15 06:00] VITALS: BP 140/58
[2021-06-15] MEDS: HumaLOG INSULIN (NovoLOG) PER UNIT SC SCH ×4 (07:30→21:00)
[2021-06-15 08:59] LABS: BASO # 0.1 10^3/uL (0.0-0.2); BASO % 0.9 % (0.0-1.0); EOS # 0.4 10^3/uL (0.0-0.5); EOS % 4.3 % (0.0-3.0); HEMATOCRIT 28.4 % (42.0-52.0); HEMOGLOBIN 8.9 g/dl (13.5-17.5); LYMPH # 1.4 10^3/uL (1.5-5.0); LYMPH % 15.8 % (24.0-44.0); MEAN CORPUSCULAR HEMOGLOBIN 28.6 pg (27.0-33.0); MEAN CORPUSCULAR HGB CONC 31.3 g/dl (32.0-36.5); MEAN CORPUSCULAR VOLUME 91.3 fl (80.0-96.0); MONO # 0.6 10^3/uL (0.0-0.8); MONO % 6.2 % (2.0-8.0); NEUTROPHILS # 6.4 10^3/uL (1.5-8.5); NEUTROPHILS % 72.2 % (36.0-66.0); PLATELET COUNT, AUTOMATED 267 10^3/uL (150-450); RED BLOOD COUNT 3.11 10^6/uL (4.30-6.10); WHITE BLOOD COUNT 8.9 10^3/uL (4.0-10.0)
[2021-06-15] MEDS: NYSTATIN 100,000 UNITS/GM TOPICAL PWD 15 GM TOP SCH ×2 (09:00→22:15)
[2021-06-15] MEDS: ANALGESIC BALM CRM 3OZ TOP SCH ×4 (09:00→22:16)
[2021-06-15 09:13] LABS: C REACTIVE PROTEIN QUANTITATIV 0.88 MG/DL (0.00-0.30); CALCIUM LEVEL 8.3 MG/DL (8.8-10.2); CREATININE FOR GFR 1.32 MG/DL (0.70-1.30); GLOMERULAR FILTRATION RATE 55.4 (>35); MAGNESIUM LEVEL 1.5 MG/DL (1.8-2.4); POTASSIUM SERUM 4.1 MEQ/L (3.5-5.1)
[2021-06-15 09:16] LABS: ERYTHROCYTE SEDIMENTATION RATE 81 mm/hr (0-20)
[2021-06-15] MEDS: ENOXAPARIN 80MG/0.8ML SYRINGE (J1650 PER 10MG) SC SCH ×2 (09:30→22:14)
[2021-06-15] MEDS: PANTOPRAZOLE 40MG TAB (PROTONIX) PO SCH (09:30)
[2021-06-15] MEDS: allopurinoL 100 MG TAB PO SCH (09:30)
[2021-06-15] MEDS: ASCORBIC ACID 500 MG TAB PO SCH (09:30)
[2021-06-15] MEDS: CO-ENZYME Q10 50 MG CAP PO SCH (09:30)
[2021-06-15] MEDS: LINEZOLID 600MG TABLET (ZYVOX) PO SCH ×2 (09:30→22:13)
[2021-06-15] MEDS: FUROSEMIDE 20 MG TAB PO SCH (10:29)
[2021-06-15 14:00] VITALS: BP 130/59
[2021-06-15 22:00] VITALS: BP 124/53
[2021-06-15] MEDS: PRAVASTATIN 20 MG TAB PO SCH (22:13)
[2021-06-15] MEDS: ASPIRIN 81MG ENTERIC TABLET PO SCH (22:13)
[2021-06-16] MEDS: ACETAMINOPHEN 500 MG TAB PO SCH ×3 (02:48→17:24)
[2021-06-16 04:47] LABS: BASO # 0.1 10^3/uL (0.0-0.2); BASO % 1.2 % (0.0-1.0); EOS # 0.3 10^3/uL (0.0-0.5); EOS % 3.8 % (0.0-3.0); HEMATOCRIT 27.5 % (42.0-52.0); HEMOGLOBIN 8.5 g/dl (13.5-17.5); LYMPH # 1.5 10^3/uL (1.5-5.0); LYMPH % 18.2 % (24.0-44.0); MEAN CORPUSCULAR HEMOGLOBIN 28.5 pg (27.0-33.0); MEAN CORPUSCULAR HGB CONC 30.9 g/dl (32.0-36.5); MEAN CORPUSCULAR VOLUME 92.3 fl (80.0-96.0); MONO # 0.6 10^3/uL (0.0-0.8); MONO % 6.7 % (2.0-8.0); NEUTROPHILS # 5.9 10^3/uL (1.5-8.5); NEUTROPHILS % 69.7 % (36.0-66.0); PLATELET COUNT, AUTOMATED 276 10^3/uL (150-450); RED BLOOD COUNT 2.98 10^6/uL (4.30-6.10); WHITE BLOOD COUNT 8.5 10^3/uL (4.0-10.0)
[2021-06-16 05:12] LABS: CALCIUM LEVEL 8.2 MG/DL (8.8-10.2); CREATININE FOR GFR 1.29 MG/DL (0.70-1.30); GLOMERULAR FILTRATION RATE 56.9 (>35); POTASSIUM SERUM 4.5 MEQ/L (3.5-5.1)
[2021-06-16] MEDS: LEVOTHYROXINE 25MCG TABLET (0.025MG) PO SCH (05:31)
[2021-06-16 06:00] VITALS: BP 139/67
[2021-06-16] MEDS: CO-ENZYME Q10 50 MG CAP PO SCH (08:49)
[2021-06-16] MEDS: HumaLOG INSULIN (NovoLOG) PER UNIT SC SCH ×4 (08:49→19:38)
[2021-06-16] MEDS: PANTOPRAZOLE 40MG TAB (PROTONIX) PO SCH (08:50)
[2021-06-16] MEDS: ASCORBIC ACID 500 MG TAB PO SCH (08:50)
[2021-06-16] MEDS: allopurinoL 100 MG TAB PO SCH (08:51)
[2021-06-16] MEDS: FUROSEMIDE 20 MG TAB PO SCH ×2 (08:51→08:54)
[2021-06-16] MEDS: LINEZOLID 600MG TABLET (ZYVOX) PO SCH ×2 (08:52→19:37)
[2021-06-16] MEDS: ENOXAPARIN 80MG/0.8ML SYRINGE (J1650 PER 10MG) SC SCH ×2 (08:52→19:39)
[2021-06-16] MEDS: ANALGESIC BALM CRM 3OZ TOP SCH ×4 (08:53→19:38)
[2021-06-16] MEDS: NYSTATIN 100,000 UNITS/GM TOPICAL PWD 15 GM TOP SCH ×2 (08:53→19:38)
[2021-06-16 14:00] VITALS: BP 116/87
[2021-06-16 19:29] VITALS: BP 104/49
[2021-06-16] MEDS: ASPIRIN 81MG ENTERIC TABLET PO SCH (19:37)
[2021-06-16] MEDS: PRAVASTATIN 20 MG TAB PO SCH (19:37)
[2021-06-17] MEDS: ACETAMINOPHEN 500 MG TAB PO SCH ×3 (01:29→17:23)
[2021-06-17 05:30] VITALS: BP 117/46
[2021-06-17 05:52] LABS: BASO # 0.1 10^3/uL (0.0-0.2); BASO % 1.2 % (0.0-1.0); EOS # 0.4 10^3/uL (0.0-0.5); EOS % 4.2 % (0.0-3.0); HEMATOCRIT 28.5 % (42.0-52.0); HEMOGLOBIN 8.7 g/dl (13.5-17.5); LYMPH # 1.6 10^3/uL (1.5-5.0); LYMPH % 17.8 % (24.0-44.0); MEAN CORPUSCULAR HGB CONC 30.5 g/dl (32.0-36.5); MEAN CORPUSCULAR VOLUME 91.6 fl (80.0-96.0); MONO # 0.5 10^3/uL (0.0-0.8); MONO % 5.1 % (2.0-8.0); NEUTROPHILS # 6.3 10^3/uL (1.5-8.5); NEUTROPHILS % 71.2 % (36.0-66.0); PLATELET COUNT, AUTOMATED 280 10^3/uL (150-450); RED BLOOD COUNT 3.11 10^6/uL (4.30-6.10); WHITE BLOOD COUNT 8.8 10^3/uL (4.0-10.0)
[2021-06-17] MEDS: LEVOTHYROXINE 25MCG TABLET (0.025MG) PO SCH (05:59)
[2021-06-17 06:15] LABS: CALCIUM LEVEL 8.5 MG/DL (8.8-10.2); CREATININE FOR GFR 1.28 MG/DL (0.70-1.30); GLOMERULAR FILTRATION RATE 57.4 (>35); POTASSIUM SERUM 4.6 MEQ/L (3.5-5.1)
[2021-06-17 08:30] VITALS: BP 117/46
[2021-06-17] MEDS: ENOXAPARIN 80MG/0.8ML SYRINGE (J1650 PER 10MG) SC SCH ×2 (08:57→21:43)
[2021-06-17] MEDS: LINEZOLID 600MG TABLET (ZYVOX) PO SCH ×2 (08:57→21:42)
[2021-06-17] MEDS: HumaLOG INSULIN (NovoLOG) PER UNIT SC SCH ×4 (08:57→21:00)
[2021-06-17] MEDS: ASCORBIC ACID 500 MG TAB PO SCH (08:57)
[2021-06-17] MEDS: CO-ENZYME Q10 50 MG CAP PO SCH (08:59)
[2021-06-17] MEDS: allopurinoL 100 MG TAB PO SCH (09:00)
[2021-06-17] MEDS: FUROSEMIDE 20 MG TAB PO SCH (09:01)
[2021-06-17] MEDS: PANTOPRAZOLE 40MG TAB (PROTONIX) PO SCH (09:01)
[2021-06-17] MEDS: ANALGESIC BALM CRM 3OZ TOP SCH ×4 (09:02→21:00)
[2021-06-17] MEDS: NYSTATIN 100,000 UNITS/GM TOPICAL PWD 15 GM TOP SCH ×2 (09:05→21:43)
[2021-06-17] MEDS: ASPIRIN 81MG ENTERIC TABLET PO SCH (21:42)
[2021-06-17] MEDS: PRAVASTATIN 20 MG TAB PO SCH (21:42)
[2021-06-18] MEDS: ACETAMINOPHEN 500 MG TAB PO SCH ×3 (02:44→18:09)
[2021-06-18 06:00] VITALS: BP 113/46
[2021-06-18 06:01] LABS: BASO # 0.1 10^3/uL (0.0-0.2); BASO % 1.7 % (0.0-1.0); EOS # 0.3 10^3/uL (0.0-0.5); EOS % 3.5 % (0.0-3.0); HEMATOCRIT 31.2 % (42.0-52.0); HEMOGLOBIN 9.2 g/dl (13.5-17.5); LYMPH # 1.4 10^3/uL (1.5-5.0); LYMPH % 17.2 % (24.0-44.0); MEAN CORPUSCULAR HEMOGLOBIN 28.2 pg (27.0-33.0); MEAN CORPUSCULAR HGB CONC 29.5 g/dl (32.0-36.5); MEAN CORPUSCULAR VOLUME 95.7 fl (80.0-96.0); MONO # 0.5 10^3/uL (0.0-0.8); MONO % 5.6 % (2.0-8.0); NEUTROPHILS # 5.8 10^3/uL (1.5-8.5); NEUTROPHILS % 71.6 % (36.0-66.0); PLATELET COUNT, AUTOMATED 259 10^3/uL (150-450); RED BLOOD COUNT 3.26 10^6/uL (4.30-6.10); WHITE BLOOD COUNT 8.1 10^3/uL (4.0-10.0)
[2021-06-18] MEDS: LEVOTHYROXINE 25MCG TABLET (0.025MG) PO SCH (06:15)
[2021-06-18 06:21] LABS: CALCIUM LEVEL 8.9 MG/DL (8.8-10.2); CREATININE FOR GFR 1.37 MG/DL (0.70-1.30); GLOMERULAR FILTRATION RATE 53.1 (>35); POTASSIUM SERUM 4.5 MEQ/L (3.5-5.1)
[2021-06-18] MEDS: HumaLOG INSULIN (NovoLOG) PER UNIT SC SCH ×4 (07:30→21:00)
[2021-06-18] MEDS: NYSTATIN 100,000 UNITS/GM TOPICAL PWD 15 GM TOP SCH ×2 (09:00→21:00)
[2021-06-18] MEDS: ANALGESIC BALM CRM 3OZ TOP SCH (09:00)
[2021-06-18] MEDS: CO-ENZYME Q10 50 MG CAP PO SCH (09:09)
[2021-06-18] MEDS: PANTOPRAZOLE 40MG TAB (PROTONIX) PO SCH (09:09)
[2021-06-18] MEDS: FUROSEMIDE 20 MG TAB PO SCH (09:10)
[2021-06-18] MEDS: ENOXAPARIN 80MG/0.8ML SYRINGE (J1650 PER 10MG) SC SCH ×2 (09:11→21:18)
[2021-06-18] MEDS: allopurinoL 100 MG TAB PO SCH (09:11)
[2021-06-18] MEDS: ASCORBIC ACID 500 MG TAB PO SCH (09:11)
[2021-06-18] MEDS: LINEZOLID 600MG TABLET (ZYVOX) PO SCH ×2 (09:11→21:18)
[2021-06-18] MEDS: PRAVASTATIN 20 MG TAB PO SCH (21:18)
[2021-06-18] MEDS: ASPIRIN 81MG ENTERIC TABLET PO SCH (21:18)
[2021-06-19] MEDS: ACETAMINOPHEN 500 MG TAB PO SCH ×3 (02:00→18:18)
[2021-06-19] MEDS: LEVOTHYROXINE 25MCG TABLET (0.025MG) PO SCH (05:59)
[2021-06-19 06:13] VITALS: BP 138/56
[2021-06-19] MEDS: LINEZOLID 600MG TABLET (ZYVOX) PO SCH ×2 (08:34→21:51)
[2021-06-19] MEDS: ASCORBIC ACID 500 MG TAB PO SCH (08:34)
[2021-06-19] MEDS: CO-ENZYME Q10 50 MG CAP PO SCH (08:34)
[2021-06-19] MEDS: allopurinoL 100 MG TAB PO SCH (08:34)
[2021-06-19] MEDS: PANTOPRAZOLE 40MG TAB (PROTONIX) PO SCH (08:34)
[2021-06-19] MEDS: HumaLOG INSULIN (NovoLOG) PER UNIT SC SCH ×3 (08:39→18:17)
[2021-06-19] MEDS: FUROSEMIDE 20 MG TAB PO SCH (08:39)
[2021-06-19] MEDS: NYSTATIN 100,000 UNITS/GM TOPICAL PWD 15 GM TOP SCH ×2 (08:42→21:52)
[2021-06-19] MEDS: ENOXAPARIN 80MG/0.8ML SYRINGE (J1650 PER 10MG) SC SCH (09:28)
[2021-06-19 15:56] LABS: INR 1.12; PROTHROMBIN TIME 14.8 SECONDS (12.7-14.5)
[2021-06-19 15:57] LABS: PARTIAL THROMBOPLASTIN TIME 39.4 SECONDS (25.9-37.0)
[2021-06-19] MEDS: ASPIRIN 81MG ENTERIC TABLET PO SCH (21:51)
[2021-06-19] MEDS: PRAVASTATIN 20 MG TAB PO SCH (21:52)
[2021-06-20] MEDS: ACETAMINOPHEN 500 MG TAB PO SCH ×3 (02:00→17:33)
[2021-06-20] MEDS: LEVOTHYROXINE 25MCG TABLET (0.025MG) PO SCH (05:54)
[2021-06-20 06:00] VITALS: BP 123/51
[2021-06-20] MEDS: ASCORBIC ACID 500 MG TAB PO SCH (08:54)
[2021-06-20] MEDS: PANTOPRAZOLE 40MG TAB (PROTONIX) PO SCH (08:55)
[2021-06-20] MEDS: allopurinoL 100 MG TAB PO SCH (08:55)
[2021-06-20] MEDS: LINEZOLID 600MG TABLET (ZYVOX) PO SCH ×2 (08:55→20:24)
[2021-06-20] MEDS: CO-ENZYME Q10 50 MG CAP PO SCH (08:55)
[2021-06-20] MEDS: NYSTATIN 100,000 UNITS/GM TOPICAL PWD 15 GM TOP SCH ×2 (08:56→20:23)
[2021-06-20] MEDS: SPIRONOLACTONE 12.5MG PER 1/2 TABLET PO SCH (08:56)
[2021-06-20] MEDS: FUROSEMIDE 20 MG TAB PO SCH (08:56)
[2021-06-20] MEDS: NORCO, ANEXSIA 5/325MG TABLET (HYDROcodone/ACETAMINOPHEN) PO PRN (14:33)
[2021-06-20] MEDS: WARFARIN SOD 2.5MG TAB PO SCH (17:34)
[2021-06-20] MEDS: PRAVASTATIN 20 MG TAB PO SCH (20:24)
[2021-06-20] MEDS: ASPIRIN 81MG ENTERIC TABLET PO SCH (20:24)
[2021-06-21] MEDS: ACETAMINOPHEN 500 MG TAB PO SCH ×3 (02:00→17:03)
[2021-06-21 06:00] VITALS: BP 145/65
[2021-06-21] MEDS: LEVOTHYROXINE 25MCG TABLET (0.025MG) PO SCH (06:12)
[2021-06-21 06:26] LABS: BASO # 0.1 10^3/uL (0.0-0.2); BASO % 1.4 % (0.0-1.0); EOS # 0.5 10^3/uL (0.0-0.5); EOS % 7.8 % (0.0-3.0); HEMATOCRIT 25.5 % (42.0-52.0); HEMOGLOBIN 7.9 g/dl (13.5-17.5); LYMPH # 1.1 10^3/uL (1.5-5.0); LYMPH % 16.5 % (24.0-44.0); MEAN CORPUSCULAR HEMOGLOBIN 28.3 pg (27.0-33.0); MEAN CORPUSCULAR VOLUME 91.4 fl (80.0-96.0); MONO # 0.3 10^3/uL (0.0-0.8); NEUTROPHILS # 4.5 10^3/uL (1.5-8.5); PLATELET COUNT, AUTOMATED 191 10^3/uL (150-450); RED BLOOD COUNT 2.79 10^6/uL (4.30-6.10); WHITE BLOOD COUNT 6.5 10^3/uL (4.0-10.0)
[2021-06-21 06:51] LABS: CALCIUM LEVEL 8.5 MG/DL (8.8-10.2); CREATININE FOR GFR 1.43 MG/DL (0.70-1.30); GLOMERULAR FILTRATION RATE 50.5 (>35); POTASSIUM SERUM 4.7 MEQ/L (3.5-5.1)
[2021-06-21] MEDS: CO-ENZYME Q10 50 MG CAP PO SCH (09:44)
[2021-06-21] MEDS: SPIRONOLACTONE 12.5MG PER 1/2 TABLET PO SCH (09:44)
[2021-06-21] MEDS: FUROSEMIDE 20 MG TAB PO SCH (09:44)
[2021-06-21] MEDS: PANTOPRAZOLE 40MG TAB (PROTONIX) PO SCH (09:45)
[2021-06-21] MEDS: allopurinoL 100 MG TAB PO SCH (09:45)
[2021-06-21] MEDS: NYSTATIN 100,000 UNITS/GM TOPICAL PWD 15 GM TOP SCH ×2 (09:45→22:30)
[2021-06-21] MEDS: LINEZOLID 600MG TABLET (ZYVOX) PO SCH ×2 (09:45→22:29)
[2021-06-21] MEDS: ASCORBIC ACID 500 MG TAB PO SCH (09:45)
[2021-06-21] MEDS: WARFARIN SOD 2.5MG TAB PO SCH (17:03)
[2021-06-21] MEDS: PRAVASTATIN 20 MG TAB PO SCH (22:29)
[2021-06-21] MEDS: ASPIRIN 81MG ENTERIC TABLET PO SCH (22:29)
[2021-06-22] MEDS: ACETAMINOPHEN 500 MG TAB PO SCH ×3 (00:33→17:05)
[2021-06-22 06:00] VITALS: BP 144/64
[2021-06-22] MEDS: LEVOTHYROXINE 25MCG TABLET (0.025MG) PO SCH (06:17)
[2021-06-22 06:37] LABS: HEMATOCRIT 25.8 % (42.0-52.0); MEAN CORPUSCULAR HEMOGLOBIN 28.3 pg (27.0-33.0); MEAN CORPUSCULAR VOLUME 91.2 fl (80.0-96.0); PLATELET COUNT, AUTOMATED 178 10^3/uL (150-450); RED BLOOD COUNT 2.83 10^6/uL (4.30-6.10); WHITE BLOOD COUNT 6.4 10^3/uL (4.0-10.0)
[2021-06-22 06:55] LABS: INR 1.06; PROTHROMBIN TIME 14.2 SECONDS (12.7-14.5)
[2021-06-22 06:56] LABS: PARTIAL THROMBOPLASTIN TIME 34.2 SECONDS (25.9-37.0)
[2021-06-22 07:03] LABS: CALCIUM LEVEL 8.6 MG/DL (8.8-10.2); CREATININE FOR GFR 1.39 MG/DL (0.70-1.30); GLOMERULAR FILTRATION RATE 52.2 (>35); POTASSIUM SERUM 4.6 MEQ/L (3.5-5.1)
[2021-06-22] MEDS: SPIRONOLACTONE 12.5MG PER 1/2 TABLET PO SCH (09:10)
[2021-06-22] MEDS: ASCORBIC ACID 500 MG TAB PO SCH (09:10)
[2021-06-22] MEDS: allopurinoL 100 MG TAB PO SCH (09:10)
[2021-06-22] MEDS: CO-ENZYME Q10 50 MG CAP PO SCH (09:10)
[2021-06-22] MEDS: PANTOPRAZOLE 40MG TAB (PROTONIX) PO SCH (09:10)
[2021-06-22] MEDS: FUROSEMIDE 20 MG TAB PO SCH (09:10)
[2021-06-22] MEDS: LINEZOLID 600MG TABLET (ZYVOX) PO SCH ×2 (09:10→20:46)
[2021-06-22] MEDS: NYSTATIN 100,000 UNITS/GM TOPICAL PWD 15 GM TOP SCH ×2 (09:11→20:47)
[2021-06-22] MEDS: WARFARIN SOD 5MG TAB PO SCH (17:06)
[2021-06-22] MEDS: ASPIRIN 81MG ENTERIC TABLET PO SCH (20:47)
[2021-06-22] MEDS: PRAVASTATIN 20 MG TAB PO SCH (20:47)
[2021-06-23] MEDS: ACETAMINOPHEN 500 MG TAB PO SCH ×3 (01:33→17:36)
[2021-06-23] MEDS: LEVOTHYROXINE 25MCG TABLET (0.025MG) PO SCH (05:34)
[2021-06-23 06:00] VITALS: BP 146/65
[2021-06-23 08:50] VITALS: BP 137/58
[2021-06-23] MEDS: ASCORBIC ACID 500 MG TAB PO SCH (08:52)
[2021-06-23] MEDS: LINEZOLID 600MG TABLET (ZYVOX) PO SCH ×2 (08:52→21:31)
[2021-06-23] MEDS: SPIRONOLACTONE 12.5MG PER 1/2 TABLET PO SCH (08:52)
[2021-06-23] MEDS: CO-ENZYME Q10 50 MG CAP PO SCH (08:52)
[2021-06-23] MEDS: allopurinoL 100 MG TAB PO SCH (08:52)
[2021-06-23] MEDS: FUROSEMIDE 20 MG TAB PO SCH (08:52)
[2021-06-23] MEDS: PANTOPRAZOLE 40MG TAB (PROTONIX) PO SCH (08:52)
[2021-06-23] MEDS: NYSTATIN 100,000 UNITS/GM TOPICAL PWD 15 GM TOP SCH ×2 (08:53→21:31)
[2021-06-23] MEDS: WARFARIN SOD 5MG TAB PO SCH (17:36)
[2021-06-23] MEDS: ASPIRIN 81MG ENTERIC TABLET PO SCH (21:31)
[2021-06-23] MEDS: PRAVASTATIN 20 MG TAB PO SCH (21:31)
[2021-06-24] MEDS: ACETAMINOPHEN 500 MG TAB PO SCH ×3 (02:00→17:31)
[2021-06-24] MEDS: LEVOTHYROXINE 25MCG TABLET (0.025MG) PO SCH (05:28)
[2021-06-24 05:40] VITALS: BP 113/40
[2021-06-24 07:09] LABS: HEMATOCRIT 23.9 % (42.0-52.0); HEMOGLOBIN 7.5 g/dl (13.5-17.5); MEAN CORPUSCULAR HEMOGLOBIN 28.6 pg (27.0-33.0); MEAN CORPUSCULAR HGB CONC 31.4 g/dl (32.0-36.5); MEAN CORPUSCULAR VOLUME 91.2 fl (80.0-96.0); PLATELET COUNT, AUTOMATED 148 10^3/uL (150-450); RED BLOOD COUNT 2.62 10^6/uL (4.30-6.10); WHITE BLOOD COUNT 5.9 10^3/uL (4.0-10.0)
[2021-06-24 07:24] LABS: INR 1.27; PROTHROMBIN TIME 16.3 SECONDS (12.7-14.5)
[2021-06-24 07:25] LABS: PARTIAL THROMBOPLASTIN TIME 35.3 SECONDS (25.9-37.0)
[2021-06-24 07:34] LABS: C REACTIVE PROTEIN QUANTITATIV 1.45 MG/DL (0.00-0.30); CALCIUM LEVEL 8.5 MG/DL (8.8-10.2); CREATININE FOR GFR 1.46 MG/DL (0.70-1.30); GLOMERULAR FILTRATION RATE 49.3 (>35); POTASSIUM SERUM 4.7 MEQ/L (3.5-5.1)
[2021-06-24 08:01] LABS: ANISOCYTOSIS 1+; BASOPHILS 3 % (0-1); EOSINOPHILS 14 % (0-3); LYMPHOCYTES 16 % (16-44); MONOCYTES 3 % (0-5); NEUTROPHILS 64 % (28-66); OVALOCYTES 1+; PLATELET ESTIMATE NORMAL (NORMAL)
[2021-06-24 08:04] LABS: ERYTHROCYTE SEDIMENTATION RATE 74 mm/hr (0-20)
[2021-06-24 08:50] VITALS: BP 113/40
[2021-06-24] MEDS: LINEZOLID 600MG TABLET (ZYVOX) PO SCH ×2 (10:08→22:21)
[2021-06-24] MEDS: PANTOPRAZOLE 40MG TAB (PROTONIX) PO SCH (10:08)
[2021-06-24] MEDS: ASCORBIC ACID 500 MG TAB PO SCH (10:08)
[2021-06-24] MEDS: CO-ENZYME Q10 50 MG CAP PO SCH (10:09)
[2021-06-24] MEDS: allopurinoL 100 MG TAB PO SCH (10:10)
[2021-06-24] MEDS: FUROSEMIDE 20 MG TAB PO SCH (10:11)
[2021-06-24] MEDS: SPIRONOLACTONE 12.5MG PER 1/2 TABLET PO SCH (10:11)
[2021-06-24] MEDS: NYSTATIN 100,000 UNITS/GM TOPICAL PWD 15 GM TOP SCH ×2 (10:14→22:21)
[2021-06-24] MEDS: WARFARIN SOD 5MG TAB PO SCH (17:29)
[2021-06-24] MEDS: ASPIRIN 81MG ENTERIC TABLET PO SCH (22:20)
[2021-06-24] MEDS: PRAVASTATIN 20 MG TAB PO SCH (22:21)
[2021-06-25] MEDS: ACETAMINOPHEN 500 MG TAB PO SCH ×3 (02:00→17:07)
[2021-06-25 05:15] VITALS: BP 132/47
[2021-06-25] MEDS: LEVOTHYROXINE 25MCG TABLET (0.025MG) PO SCH (05:47)
[2021-06-25] MEDS: CO-ENZYME Q10 50 MG CAP PO SCH (09:43)
[2021-06-25] MEDS: PANTOPRAZOLE 40MG TAB (PROTONIX) PO SCH (09:44)
[2021-06-25] MEDS: FUROSEMIDE 20 MG TAB PO SCH (09:44)
[2021-06-25] MEDS: ASCORBIC ACID 500 MG TAB PO SCH (09:44)
[2021-06-25] MEDS: SPIRONOLACTONE 12.5MG PER 1/2 TABLET PO SCH (09:44)
[2021-06-25] MEDS: allopurinoL 100 MG TAB PO SCH (09:44)
[2021-06-25] MEDS: NYSTATIN 100,000 UNITS/GM TOPICAL PWD 15 GM TOP SCH ×2 (09:45→21:10)
[2021-06-25] MEDS ORDERED: WARFARIN SOD 7.5MG TAB PO SCH (17:00)
[2021-06-25] MEDS: PRAVASTATIN 20 MG TAB PO SCH (21:10)
[2021-06-25] MEDS: ASPIRIN 81MG ENTERIC TABLET PO SCH (21:10)
[2021-06-26] VITALS (8 sets, daily range): BP systolic 117–158; BP diastolic 47–65
[2021-06-26] MEDS: ACETAMINOPHEN 500 MG TAB PO SCH ×3 (02:00→17:48)
[2021-06-26] MEDS: LEVOTHYROXINE 25MCG TABLET (0.025MG) PO SCH (05:59)
[2021-06-26 09:07] LABS: HEMATOCRIT 23.3 % (42.0-52.0); HEMOGLOBIN 7.3 g/dl (13.5-17.5); MEAN CORPUSCULAR HEMOGLOBIN 28.5 pg (27.0-33.0); MEAN CORPUSCULAR HGB CONC 31.3 g/dl (32.0-36.5); PLATELET COUNT, AUTOMATED 132 10^3/uL (150-450); RED BLOOD COUNT 2.56 10^6/uL (4.30-6.10); WHITE BLOOD COUNT 5.6 10^3/uL (4.0-10.0)
[2021-06-26] MEDS: FUROSEMIDE 20 MG TAB PO SCH (09:19)
[2021-06-26] MEDS: CO-ENZYME Q10 50 MG CAP PO SCH (09:19)
[2021-06-26] MEDS: SPIRONOLACTONE 12.5MG PER 1/2 TABLET PO SCH (09:19)
[2021-06-26] MEDS: allopurinoL 100 MG TAB PO SCH (09:20)
[2021-06-26] MEDS: PANTOPRAZOLE 40MG TAB (PROTONIX) PO SCH (09:20)
[2021-06-26] MEDS: ASCORBIC ACID 500 MG TAB PO SCH (09:20)
[2021-06-26] MEDS: NYSTATIN 100,000 UNITS/GM TOPICAL PWD 15 GM TOP SCH ×2 (09:21→20:05)
[2021-06-26 09:23] LABS: INR 2.36; PROTHROMBIN TIME 26.2 SECONDS (12.7-14.5)
[2021-06-26 09:27] LABS: CALCIUM LEVEL 9.1 MG/DL (8.8-10.2); CREATININE FOR GFR 1.5 MG/DL (0.70-1.30); GLOMERULAR FILTRATION RATE 47.8 (>35); POTASSIUM SERUM 4.3 MEQ/L (3.5-5.1)
[2021-06-26 09:43] LABS: PARTIAL THROMBOPLASTIN TIME 38.5 SECONDS (25.9-37.0)
[2021-06-26] MEDS ORDERED: FUROSEMIDE 40MG/4ML VIAL (J1940) IV ONE (10:15)
[2021-06-26 10:40] LABS: ANISOCYTOSIS 1+; BASOPHILS 3 % (0-1); EOSINOPHILS 6 % (0-3); LYMPHOCYTES 30 % (16-44); MONOCYTES 4 % (0-5); NEUTROPHILS 57 % (28-66); OVALOCYTES 1+; PLATELET ESTIMATE NORMAL (NORMAL)
[2021-06-26] MEDS ORDERED: WARFARIN SOD 2.5MG TAB PO SCH (17:00)
[2021-06-26] MEDS: ASPIRIN 81MG ENTERIC TABLET PO SCH (20:04)
[2021-06-26] MEDS: PRAVASTATIN 20 MG TAB PO SCH (20:04)
[2021-06-27] MEDS: ACETAMINOPHEN 500 MG TAB PO SCH ×2 (02:00→09:01)
[2021-06-27] MEDS: NORCO, ANEXSIA 5/325MG TABLET (HYDROcodone/ACETAMINOPHEN) PO PRN (02:17)
[2021-06-27] MEDS: LEVOTHYROXINE 25MCG TABLET (0.025MG) PO SCH (05:58)
[2021-06-27 06:00] VITALS: BP 151/53
[2021-06-27 07:42] LABS: BASO # 0.1 10^3/uL (0.0-0.2); BASO % 1.8 % (0.0-1.0); EOS # 0.4 10^3/uL (0.0-0.5); EOS % 6.5 % (0.0-3.0); HEMATOCRIT 29.5 % (42.0-52.0); LYMPH # 1.9 10^3/uL (1.5-5.0); LYMPH % 32.1 % (24.0-44.0); MEAN CORPUSCULAR HEMOGLOBIN 28.9 pg (27.0-33.0); MEAN CORPUSCULAR HGB CONC 32.2 g/dl (32.0-36.5); MEAN CORPUSCULAR VOLUME 89.7 fl (80.0-96.0); MONO # 0.3 10^3/uL (0.0-0.8); NEUTROPHILS # 3.3 10^3/uL (1.5-8.5); NEUTROPHILS % 54.3 % (36.0-66.0); PLATELET COUNT, AUTOMATED 120 10^3/uL (150-450); RED BLOOD COUNT 3.29 10^6/uL (4.30-6.10)
[2021-06-27 07:47] LABS: HEMOGLOBIN 9.5 g/dl (13.5-17.5)
[2021-06-27 07:52] LABS: INR 2.19; PROTHROMBIN TIME 24.7 SECONDS (12.7-14.5)
[2021-06-27 07:53] LABS: PARTIAL THROMBOPLASTIN TIME 41.7 SECONDS (25.9-37.0)
[2021-06-27] MEDS: PANTOPRAZOLE 40MG TAB (PROTONIX) PO SCH (09:00)
[2021-06-27] MEDS: SPIRONOLACTONE 12.5MG PER 1/2 TABLET PO SCH (09:00)
[2021-06-27] MEDS: FUROSEMIDE 20 MG TAB PO SCH (09:02)
[2021-06-27] MEDS: ASCORBIC ACID 500 MG TAB PO SCH (09:02)
[2021-06-27] MEDS: allopurinoL 100 MG TAB PO SCH (09:03)
[2021-06-27] MEDS: NYSTATIN 100,000 UNITS/GM TOPICAL PWD 15 GM TOP SCH (09:04)
[2021-06-27] MEDS ORDERED: LISI10TA22 PO (10:05)
[2021-06-27] MEDS ORDERED: ALLO10TA PO (10:05)
[2021-06-27] MEDS: CO-ENZYME Q10 50 MG CAP PO SCH (11:00)
== END 2021-06-27 12:10 | disposition other institution (70) | DRG 617 ==
LOC: M ED 12:29 → M ED INP 17:50 → EEVIPCON 17:50 → M MS5PR 06-04 13:40
PROVIDERS: ADMIT Internal Medicine; ATTEND Internal Medicine Nephrology
PROC: 0LDW0ZZ Extraction of Left Foot Tendon, Open Approach (ICD-10-PCS; 2021-06-04)
PROC: 0Y6Q0Z0 Detachment at Left 1st Toe, Complete, Open Approach (ICD-10-PCS; principal; 2021-06-04 10:45)
PROC: 0JBR0ZZ Excision of Left Foot Subcutaneous Tissue and Fascia, Open Approach (ICD-10-PCS; 2021-06-08)
PROC: 0HDNXZZ Extraction of Left Foot Skin, External Approach (ICD-10-PCS; 2021-06-11)
DX: E11.69 Type 2 diabetes mellitus with other specified complication (principal); M86.9 Osteomyelitis, unspecified; I50.32 Chronic diastolic (congestive) heart failure; Z95.0 Presence of cardiac pacemaker; N40.0 Benign prostatic hyperplasia without lower urinary tract symptoms; I25.10 Atherosclerotic heart disease of native coronary artery without angina pectoris; Z95.2 Presence of prosthetic heart valve; M19.90 Unspecified osteoarthritis, unspecified site; E03.9 Hypothyroidism, unspecified; K21.9 Gastro-esophageal reflux disease without esophagitis; E11.621 Type 2 diabetes mellitus with foot ulcer; L97.529 Non-pressure chronic ulcer of other part of left foot with unspecified severity; I73.9 Peripheral vascular disease, unspecified; E87.5 Hyperkalemia; Z20.822 Contact with and (suspected) exposure to COVID-19; Z79.82 Long term (current) use of aspirin; Z79.01 Long term (current) use of anticoagulants; Z79.899 Other long term (current) drug therapy; M1A.4720 Other secondary chronic gout, left ankle and foot, without tophus (tophi); N18.30 Chronic kidney disease, stage 3 unspecified; I27.20 Pulmonary hypertension, unspecified; D63.1 Anemia in chronic kidney disease; Z66 Do not resuscitate

== ENCOUNTER 2021-07-31 15:28 | Inpatient (IN) | payer MEDICARE, OTHER ==
[~2021-07-31] VITALS: Ht 172.7 cm; Wt 77.5 kg
[~2021-07-31 15:28] MED LIST changes: +ALLO10TA PO; +ASCO500T PO; +ASPI81TA26 PO; +COQ1200C3 PO; +FURO40TA2 PO; +LISI10TA22 PO; +PANT-23 PO; +PRAV40TA2 PO; +WARF-23 PO
[2021-07-31] MEDS ORDERED: NS 1,000 ML IV ONE (16:15)
[2021-07-31] MEDS ORDERED: VANCOMYCIN HCL 1,500 MG in NS 250 ML IV ONE (16:50)
[2021-07-31 16:58] LABS: BASO # 0.1 10^3/uL (0.0-0.2); BASO % 0.6 % (0.0-1.0); EOS # 0.2 10^3/uL (0.0-0.5); HEMATOCRIT 37.4 % (42.0-52.0); HEMOGLOBIN 11.1 g/dl (13.5-17.5); LYMPH # 1.2 10^3/uL (1.5-5.0); LYMPH % 15.2 % (24.0-44.0); MEAN CORPUSCULAR HEMOGLOBIN 25.4 pg (27.0-33.0); MEAN CORPUSCULAR HGB CONC 29.7 g/dl (32.0-36.5); MEAN CORPUSCULAR VOLUME 85.6 fl (80.0-96.0); MONO # 0.7 10^3/uL (0.0-0.8); MONO % 8.9 % (2.0-8.0); NEUTROPHILS # 5.7 10^3/uL (1.5-8.5); NEUTROPHILS % 72.9 % (36.0-66.0); PLATELET COUNT, AUTOMATED 323 10^3/uL (150-450); RED BLOOD COUNT 4.37 10^6/uL (4.30-6.10); WHITE BLOOD COUNT 7.9 10^3/uL (4.0-10.0)
[2021-07-31 16:59] LABS: INR 1.22; PROTHROMBIN TIME 15.8 SECONDS (12.7-14.5)
[2021-07-31 17:00] LABS: PARTIAL THROMBOPLASTIN TIME 31.5 SECONDS (25.9-37.0)
[2021-07-31] MEDS ORDERED: VANCOMYCIN HCL 750 MG, VIAL MATE ADAPTER 1 EACH in NS 250 ML IV ONE ×2 (17:00→18:00)
[2021-07-31 17:12] LABS: ALBUMIN 2.9 GM/DL (3.2-5.2); BILIRUBIN,DIRECT 0.6 MG/DL (0.0-0.2); C REACTIVE PROTEIN QUANTITATIV 1.83 MG/DL (0.00-0.30)
[2021-07-31 17:19] LABS: ERYTHROCYTE SEDIMENTATION RATE 14 mm/hr (0-20)
[2021-07-31] MEDS ORDERED: TRAM50TA2 PO (18:53)
[2021-07-31] MEDS ORDERED: DESI13CR2 TOP (18:53)
[2021-07-31] MEDS ORDERED: HOME MED LIST COMPLETE! XX SCH (18:55)
[2021-07-31] MEDS ORDERED: FUROSEMIDE 40MG/4ML VIAL (J1940) IV ONE (19:45)
[2021-07-31] MEDS ORDERED: VANCOMYCIN HCL 1,000 MG, VIAL MATE ADAPTER 1 EACH in NS 250 ML IV SCH (19:50)
[2021-07-31 21:30] VITALS: BP 141/60
[2021-07-31] MEDS: cefTRIAXone SOD 2 GM in D5W MINI-BAG PLUS 50 ML IV SCH (22:23)
[2021-08-01 05:40] VITALS: BP 122/66
[2021-08-01] MEDS: LEVOTHYROXINE 25MCG TABLET (0.025MG) PO SCH (05:40)
[2021-08-01] MEDS: FUROSEMIDE 40MG/4ML VIAL (J1940) IV SCH (09:10)
[2021-08-01] MEDS: PANTOPRAZOLE 40MG TAB (PROTONIX) PO SCH (09:10)
[2021-08-01] MEDS: PRAVASTATIN 20 MG TAB PO SCH (09:10)
[2021-08-01 09:11] LABS: BASO # 0.1 10^3/uL (0.0-0.2); BASO % 1.1 % (0.0-1.0); EOS # 0.2 10^3/uL (0.0-0.5); EOS % 2.1 % (0.0-3.0); HEMATOCRIT 36.8 % (42.0-52.0); HEMOGLOBIN 10.7 g/dl (13.5-17.5); LYMPH # 0.9 10^3/uL (1.5-5.0); LYMPH % 8.7 % (24.0-44.0); MEAN CORPUSCULAR HEMOGLOBIN 24.4 pg (27.0-33.0); MEAN CORPUSCULAR HGB CONC 29.1 g/dl (32.0-36.5); MONO # 0.6 10^3/uL (0.0-0.8); MONO % 5.9 % (2.0-8.0); NEUTROPHILS % 81.7 % (36.0-66.0); PLATELET COUNT, AUTOMATED 339 10^3/uL (150-450); RED BLOOD COUNT 4.38 10^6/uL (4.30-6.10); WHITE BLOOD COUNT 9.8 10^3/uL (4.0-10.0)
[2021-08-01] MEDS: ASPIRIN 81MG ENTERIC TABLET PO SCH (09:11)
[2021-08-01] MEDS: SPIRONOLACTONE 25 MG TAB PO SCH (09:11)
[2021-08-01 09:42] LABS: BLOOD UREA NITROGEN 52 MG/DL (7-18); CALCIUM LEVEL 9.2 MG/DL (8.8-10.2); CARBON DIOXIDE LEVEL 22 MEQ/L (21-32); CHLORIDE LEVEL 107 MEQ/L (98-107); GLOMERULAR FILTRATION RATE 41.4 (>35); GLUCOSE, FASTING 148 MG/DL (70-100); POTASSIUM SERUM 4.8 MEQ/L (3.5-5.1); SODIUM LEVEL 141 MEQ/L (136-145)
[2021-08-01 10:55] LABS: VANCOMYCIN LEVEL TROUGH 12.9 UG/ML (10.0-20.0)
[2021-08-01] MEDS ORDERED: VANCOMYCIN HCL 750 MG, VIAL MATE ADAPTER 1 EACH in NS 250 ML IV SCH (11:00)
[2021-08-01 13:05] LABS: COMPLEMENT C3 104 MG/DL (90-180); COMPLEMENT C4 25 MG/DL (10-40); RHEUMATOID FACTOR QUANT < 10.0 IU/ML (<15.0); TOTAL PROTEIN 7.2 GM/DL (6.4-8.2)
[2021-08-01 13:28] LABS: HEPATITIS B SURFACE ANTIGEN NEGATIVE (NEGATIVE)
[2021-08-01 13:56] LABS: HEPATITIS B CORE ANTIBODY IGM NEGATIVE (NEGATIVE); HEPATITIS C VIRUS ABY INDEX 0.4 INDEX (<0.8)
[2021-08-01] MEDS: cefTRIAXone SOD 2 GM in D5W MINI-BAG PLUS 50 ML IV SCH (20:43)
[2021-08-01 22:00] VITALS: BP 137/77
[2021-08-02] VITALS (9 sets, daily range): BP systolic 114–141; BP diastolic 44–69; O2SAT 80
[2021-08-02] MEDS: LEVOTHYROXINE 25MCG TABLET (0.025MG) PO SCH (05:18)
[2021-08-02 07:39] LABS: BASO # 0.1 10^3/uL (0.0-0.2); EOS # 0.3 10^3/uL (0.0-0.5); EOS % 3.5 % (0.0-3.0); HEMATOCRIT 37.1 % (42.0-52.0); HEMOGLOBIN 10.9 g/dl (13.5-17.5); LYMPH # 1.4 10^3/uL (1.5-5.0); LYMPH % 15.9 % (24.0-44.0); MEAN CORPUSCULAR HEMOGLOBIN 24.4 pg (27.0-33.0); MEAN CORPUSCULAR HGB CONC 29.4 g/dl (32.0-36.5); MEAN CORPUSCULAR VOLUME 83.2 fl (80.0-96.0); MONO # 0.7 10^3/uL (0.0-0.8); MONO % 8.2 % (2.0-8.0); NEUTROPHILS # 6.1 10^3/uL (1.5-8.5); NEUTROPHILS % 70.8 % (36.0-66.0); PLATELET COUNT, AUTOMATED 298 10^3/uL (150-450); RED BLOOD COUNT 4.46 10^6/uL (4.30-6.10); WHITE BLOOD COUNT 8.7 10^3/uL (4.0-10.0)
[2021-08-02] MEDS ORDERED: BUPIVACAINE HCL 0.5% 10ML VIAL As Ordered ONE (07:49)
[2021-08-02] MEDS ORDERED: LIDOCAINE 1% MDV 20ML VIAL As Ordered ONE (07:49)
[2021-08-02 08:00] LABS: CALCIUM LEVEL 9.1 MG/DL (8.8-10.2); CREATININE FOR GFR 1.46 MG/DL (0.70-1.30); GLOMERULAR FILTRATION RATE 49.3 (>35); POTASSIUM SERUM 4.5 MEQ/L (3.5-5.1)
[2021-08-02] MEDS ORDERED: fentaNYL 100 MCG/2 ML INJECTION As Ordered ONE (08:19)
[2021-08-02] MEDS ORDERED: LIDOCAINE 2% 100MG/5ML SDV (FOR ANES.) As Ordered ONE (08:20)
[2021-08-02] MEDS ORDERED: propofoL 200 MG/20 ML VIAL As Ordered ONE (08:20)
[2021-08-02] MEDS ORDERED: MORPHINE 2 MG/ML 1ML VIAL IV PRN (09:40)
[2021-08-02] MEDS ORDERED: ONDANSETRON 4MG/2ML VIAL IV PRN (09:55)
[2021-08-02] MEDS ORDERED: fentaNYL 100 MCG/2 ML INJECTION IV PRN (09:55)
[2021-08-02] MEDS: FUROSEMIDE 40MG/4ML VIAL (J1940) IV SCH (11:52)
[2021-08-02] MEDS: ASPIRIN 81MG ENTERIC TABLET PO SCH (11:53)
[2021-08-02] MEDS: PANTOPRAZOLE 40MG TAB (PROTONIX) PO SCH (11:53)
[2021-08-02] MEDS: SPIRONOLACTONE 25 MG TAB PO SCH (11:53)
[2021-08-02] MEDS: PRAVASTATIN 20 MG TAB PO SCH (11:53)
[2021-08-02] MEDS: VANCOMYCIN HCL 750 MG, VIAL MATE ADAPTER 1 EACH in NS 250 ML IV SCH (11:54)
[2021-08-02] MEDS: traMADol 50 MG TAB PO PRN (16:09)
[2021-08-02] MEDS: cefTRIAXone SOD 2 GM in D5W MINI-BAG PLUS 50 ML IV SCH (20:22)
[2021-08-03 02:00] VITALS: BP 137/61
[2021-08-03] MEDS: LEVOTHYROXINE 25MCG TABLET (0.025MG) PO SCH (05:11)
[2021-08-03] MEDS: traMADol 50 MG TAB PO PRN (05:12)
[2021-08-03 06:00] VITALS: BP 134/61
[2021-08-03] MEDS ORDERED: LevoFLOXacin 750 MG TABLET PO SCH (06:00)
[2021-08-03 07:00] LABS: BASO # 0.1 10^3/uL (0.0-0.2); EOS # 0.2 10^3/uL (0.0-0.5); EOS % 2.3 % (0.0-3.0); HEMATOCRIT 33.5 % (42.0-52.0); HEMOGLOBIN 9.9 g/dl (13.5-17.5); LYMPH # 1.4 10^3/uL (1.5-5.0); LYMPH % 14.1 % (24.0-44.0); MEAN CORPUSCULAR HEMOGLOBIN 24.9 pg (27.0-33.0); MEAN CORPUSCULAR HGB CONC 29.6 g/dl (32.0-36.5); MEAN CORPUSCULAR VOLUME 84.4 fl (80.0-96.0); MONO # 1.1 10^3/uL (0.0-0.8); MONO % 10.4 % (2.0-8.0); NEUTROPHILS # 7.3 10^3/uL (1.5-8.5); NEUTROPHILS % 71.7 % (36.0-66.0); PLATELET COUNT, AUTOMATED 262 10^3/uL (150-450); RED BLOOD COUNT 3.97 10^6/uL (4.30-6.10); WHITE BLOOD COUNT 10.1 10^3/uL (4.0-10.0)
[2021-08-03 07:21] LABS: CREATININE FOR GFR 1.57 MG/DL (0.70-1.30); GLOMERULAR FILTRATION RATE 45.4 (>35); POTASSIUM SERUM 4.5 MEQ/L (3.5-5.1)
[2021-08-03] MEDS ORDERED: PERCOCET 5MG/325MG TAB PO PRN (07:50)
[2021-08-03] MEDS: ACETAMINOPHEN TAB 650MG DOSE (2X325MG) PO PRN (08:28)
[2021-08-03] MEDS: ASPIRIN 81MG ENTERIC TABLET PO SCH (08:28)
[2021-08-03] MEDS: PANTOPRAZOLE 40MG TAB (PROTONIX) PO SCH (08:28)
[2021-08-03] MEDS: PRAVASTATIN 20 MG TAB PO SCH (08:28)
[2021-08-03] MEDS: SPIRONOLACTONE 25 MG TAB PO SCH (08:28)
[2021-08-03] MEDS: FUROSEMIDE 40MG/4ML VIAL (J1940) IV SCH (08:28)
[2021-08-03 09:00] VITALS: O2SAT 98
[2021-08-03] MEDS: VANCOMYCIN HCL 750 MG, VIAL MATE ADAPTER 1 EACH in NS 250 ML IV SCH (11:54)
[2021-08-03] MEDS ORDERED: diphenhydrAMINE 25MG CAP PO PRN (12:20)
[2021-08-03 14:00] VITALS: BP 126/61
[2021-08-03 21:00] VITALS: O2SAT 97
[2021-08-03 22:00] VITALS: BP 123/53
[2021-08-04] MEDS: LEVOTHYROXINE 25MCG TABLET (0.025MG) PO SCH (05:17)
[2021-08-04] MEDS: ACETAMINOPHEN TAB 650MG DOSE (2X325MG) PO PRN (05:17)
[2021-08-04 06:00] VITALS: BP 140/72
[2021-08-04] MEDS ORDERED: LevoFLOXacin 750 MG TABLET PO SCH (06:00)
[2021-08-04 06:52] LABS: BASO # 0.1 10^3/uL (0.0-0.2); EOS # 0.3 10^3/uL (0.0-0.5); HEMATOCRIT 35.1 % (42.0-52.0); HEMOGLOBIN 10.1 g/dl (13.5-17.5); LYMPH # 1.4 10^3/uL (1.5-5.0); LYMPH % 13.4 % (24.0-44.0); MEAN CORPUSCULAR HEMOGLOBIN 24.2 pg (27.0-33.0); MEAN CORPUSCULAR HGB CONC 28.8 g/dl (32.0-36.5); MONO # 0.9 10^3/uL (0.0-0.8); MONO % 8.9 % (2.0-8.0); NEUTROPHILS # 7.7 10^3/uL (1.5-8.5); PLATELET COUNT, AUTOMATED 271 10^3/uL (150-450); RED BLOOD COUNT 4.18 10^6/uL (4.30-6.10); WHITE BLOOD COUNT 10.5 10^3/uL (4.0-10.0)
[2021-08-04 07:14] LABS: CALCIUM LEVEL 8.7 MG/DL (8.8-10.2); CREATININE FOR GFR 1.45 MG/DL (0.70-1.30); GLOMERULAR FILTRATION RATE 49.7 (>35); POTASSIUM SERUM 4.3 MEQ/L (3.5-5.1)
[2021-08-04] MEDS: SPIRONOLACTONE 25 MG TAB PO SCH (08:51)
[2021-08-04] MEDS: PANTOPRAZOLE 40MG TAB (PROTONIX) PO SCH (08:51)
[2021-08-04] MEDS: PRAVASTATIN 20 MG TAB PO SCH (08:52)
[2021-08-04] MEDS: FUROSEMIDE 40MG/4ML VIAL (J1940) IV SCH (08:52)
[2021-08-04] MEDS: ASPIRIN 81MG ENTERIC TABLET PO SCH (08:52)
[2021-08-04 10:45] VITALS: O2SAT 95
[2021-08-04] MEDS ORDERED: PERCOCET PO (11:44)
[2021-08-04] MEDS ORDERED: TRAM50TA2 PO (11:44)
[2021-08-04] MEDS ORDERED: ACET1TAB55 PO (11:44)
[2021-08-04] MEDS ORDERED: LEVO750T13 PO (11:44)
[2021-08-04 14:00] VITALS: BP 144/58
[2021-08-05 16:08] LABS: ANTINUCLEAR ANTIBODIES DIRECT Negative (Negative); COMPLEMENT TOTAL (CH50) 56 U/mL (>41)
[2021-08-06 13:03] LABS: ALBUMIN 3.38 GM/DL (3.29-5.55); ALBUMIN % 46.9 % (55.8-66.1); ALPHA-1-GLOBULIN % 6.4 % (2.9-4.9); ALPHA-1-GLOBULINS 0.46 GM/DL (0.17-0.41); ALPHA-2-GLOBULINS % 10.8 % (7.1-11.8); BETA-1-GLOBULINS % 7.4 % (4.7-7.2); BETA-2-GLOBULINS % 7.9 % (3.2-6.5); GAMMA GLOBULIN % 20.6 % (11.1-18.8)
[2021-08-06 13:04] LABS: ALPHA-2-GLOBULINS 0.78 GM/DL (0.42-0.99); BETA-1-GLOBULINS 0.53 GM/DL (0.28-0.60); BETA-2-GLOBULINS 0.57 GM/DL (0.19-0.55); GAMMA GLOBULINS 1.48 GM/DL (0.65-1.58)
== END 2021-08-04 17:10 | DRG 239 ==
LOC: M ED 15:28 → EDBD 15:28 → M ED INP 19:22 → M MS5PR 21:20
PROVIDERS: ADMIT Internal Medicine Nephrology; ATTEND Internal Medicine Nephrology
PROC: 0Y6N0ZB Detachment at Left Foot, Partial 2nd Ray, Open Approach (ICD-10-PCS; 2021-08-02)
PROC: 0Y6N0ZC Detachment at Left Foot, Partial 3rd Ray, Open Approach (ICD-10-PCS; 2021-08-02)
PROC: 0Y6N0ZD Detachment at Left Foot, Partial 4th Ray, Open Approach (ICD-10-PCS; 2021-08-02)
PROC: 0Y6N0ZF Detachment at Left Foot, Partial 5th Ray, Open Approach (ICD-10-PCS; 2021-08-02)
PROC: 0Y6N0Z9 Detachment at Left Foot, Partial 1st Ray, Open Approach (ICD-10-PCS; principal; 2021-08-02 08:30)
DX: E11.52 Type 2 diabetes mellitus with diabetic peripheral angiopathy with gangrene (principal); I50.43 Acute on chronic combined systolic (congestive) and diastolic (congestive) heart failure; I48.20 Chronic atrial fibrillation, unspecified; I13.0 Hypertensive heart and chronic kidney disease with heart failure and stage 1 through stage 4 chronic kidney disease, or unspecified chronic kidney disease; M86.172 Other acute osteomyelitis, left ankle and foot; Z66 Do not resuscitate; L97.529 Non-pressure chronic ulcer of other part of left foot with unspecified severity; E11.621 Type 2 diabetes mellitus with foot ulcer; Z95.0 Presence of cardiac pacemaker; I25.10 Atherosclerotic heart disease of native coronary artery without angina pectoris; N40.0 Benign prostatic hyperplasia without lower urinary tract symptoms; Z95.1 Presence of aortocoronary bypass graft; Z95.2 Presence of prosthetic heart valve; M19.90 Unspecified osteoarthritis, unspecified site; E03.9 Hypothyroidism, unspecified; I73.9 Peripheral vascular disease, unspecified; Z79.82 Long term (current) use of aspirin; Z79.899 Other long term (current) drug therapy; M10.00 Idiopathic gout, unspecified site; R21 Rash and other nonspecific skin eruption; N18.30 Chronic kidney disease, stage 3 unspecified; I27.20 Pulmonary hypertension, unspecified; Z87.891 Personal history of nicotine dependence; E11.22 Type 2 diabetes mellitus with diabetic chronic kidney disease; E11.69 Type 2 diabetes mellitus with other specified complication; L89.152 Pressure ulcer of sacral region, stage 2; L89.612 Pressure ulcer of right heel, stage 2; L89.321 Pressure ulcer of left buttock, stage 1

== ENCOUNTER 2021-08-04 10:34 | Inpatient (IN) | payer MEDICARE, OTHER ==
[~2021-08-04] VITALS: Ht 172.7 cm; Wt 78.0 kg
[~2021-08-04 10:34] MED LIST changes: +DESI13CR2 TOP; +TRAM50TA2 PO
[2021-08-04] MEDS ORDERED: BISACODYL 10 MG SUPP PR PRN (11:30)
[2021-08-04] MEDS ORDERED: TRAM50TA2 PO (11:44)
[2021-08-04] MEDS ORDERED: ACET1TAB55 PO (11:44)
[2021-08-04] MEDS ORDERED: PERCOCET PO (11:44)
[2021-08-04] MEDS ORDERED: LEVO750T13 PO (11:44)
[2021-08-04 18:00] VITALS: BP 139/63
[2021-08-04] MEDS: LACTOBACILLUS ACIDOPHILUS CAP (BACID) PO SCH ×2 (19:05→20:30)
[2021-08-04 20:00] VITALS: BP 126/62
[2021-08-04] MEDS: DOCUSATE SODIUM 100MG CAPSULE PO SCH (20:30)
[2021-08-04] MEDS: ACETAMINOPHEN 500 MG TAB PO SCH (20:30)
[2021-08-04] MEDS: SENNA 8.6 MG TAB (SENOKOT) PO SCH (20:30)
[2021-08-04] MEDS: MAGNESIUM OXIDE 400MG TAB (MAG-OX) PO SCH (20:30)
[2021-08-04] MEDS: HEPARIN SOD (PORCINE) 5000UNITS/ML 1ML VIAL/SYRINGE SC SCH (20:30)
[2021-08-04] MEDS: REMEDY PHYTOPLEX Z-GUARD PASTE 113GM TUBE (FROM STOREROOM PRODUCT) TOP SCH (20:33)
[2021-08-05] MEDS: oxyCODONE 5MG TAB PO PRN (04:10)
[2021-08-05 06:00] VITALS: BP 138/63
[2021-08-05] MEDS ORDERED: LevoFLOXacin 750 MG TABLET PO SCH (06:00)
[2021-08-05] MEDS: LEVOTHYROXINE 25MCG TABLET (0.025MG) PO SCH (06:16)
[2021-08-05] MEDS: PRAVASTATIN 20 MG TAB PO SCH (08:19)
[2021-08-05] MEDS: FUROSEMIDE 40 MG TAB PO SCH (08:19)
[2021-08-05] MEDS: ASPIRIN 81MG ENTERIC TABLET PO SCH (08:19)
[2021-08-05] MEDS: SPIRONOLACTONE 25 MG TAB PO SCH (08:19)
[2021-08-05] MEDS: DOCUSATE SODIUM 100MG CAPSULE PO SCH ×2 (08:19→21:10)
[2021-08-05] MEDS: LACTOBACILLUS ACIDOPHILUS CAP (BACID) PO SCH ×4 (08:19→21:10)
[2021-08-05] MEDS: REMEDY PHYTOPLEX Z-GUARD PASTE 113GM TUBE (FROM STOREROOM PRODUCT) TOP SCH ×3 (08:20→21:13)
[2021-08-05] MEDS: MAGNESIUM OXIDE 400MG TAB (MAG-OX) PO SCH ×2 (08:20→21:10)
[2021-08-05] MEDS: HEPARIN SOD (PORCINE) 5000UNITS/ML 1ML VIAL/SYRINGE SC SCH ×2 (08:20→21:12)
[2021-08-05] MEDS: ACETAMINOPHEN 500 MG TAB PO SCH ×3 (08:20→21:12)
[2021-08-05 08:40] LABS: BASO # 0.1 10^3/uL (0.0-0.2); BASO % 0.7 % (0.0-1.0); EOS # 0.3 10^3/uL (0.0-0.5); EOS % 3.2 % (0.0-3.0); HEMATOCRIT 34.4 % (42.0-52.0); LYMPH # 1.1 10^3/uL (1.5-5.0); LYMPH % 13.7 % (24.0-44.0); MEAN CORPUSCULAR HEMOGLOBIN 24.3 pg (27.0-33.0); MEAN CORPUSCULAR HGB CONC 29.1 g/dl (32.0-36.5); MEAN CORPUSCULAR VOLUME 83.7 fl (80.0-96.0); MONO # 0.7 10^3/uL (0.0-0.8); MONO % 8.8 % (2.0-8.0); NEUTROPHILS # 5.9 10^3/uL (1.5-8.5); NEUTROPHILS % 73.1 % (36.0-66.0); PLATELET COUNT, AUTOMATED 246 10^3/uL (150-450); RED BLOOD COUNT 4.11 10^6/uL (4.30-6.10); WHITE BLOOD COUNT 8.1 10^3/uL (4.0-10.0)
[2021-08-05 09:10] LABS: ALBUMIN 2.6 GM/DL (3.2-5.2); CALCIUM LEVEL 9.1 MG/DL (8.8-10.2); CREATININE FOR GFR 1.66 MG/DL (0.70-1.30); GLOMERULAR FILTRATION RATE 42.5 (>35); MAGNESIUM LEVEL 1.6 MG/DL (1.8-2.4); POTASSIUM SERUM 4.4 MEQ/L (3.5-5.1); TOTAL PROTEIN 6.5 GM/DL (6.4-8.2)
[2021-08-05 14:00] VITALS: BP 114/60
[2021-08-05 20:00] VITALS: BP 132/60
[2021-08-05] MEDS ORDERED: HOME MED LIST COMPLETE! XX SCH (20:50)
[2021-08-05] MEDS: SENNA 8.6 MG TAB (SENOKOT) PO SCH (21:11)
[2021-08-06] MEDS: LEVOTHYROXINE 25MCG TABLET (0.025MG) PO SCH (05:03)
[2021-08-06 06:00] VITALS: BP 148/77
[2021-08-06 07:52] LABS: BASO # 0.1 10^3/uL (0.0-0.2); BASO % 1.2 % (0.0-1.0); EOS # 0.3 10^3/uL (0.0-0.5); HEMATOCRIT 34.3 % (42.0-52.0); HEMOGLOBIN 10.3 g/dl (13.5-17.5); LYMPH # 1.3 10^3/uL (1.5-5.0); LYMPH % 14.5 % (24.0-44.0); MEAN CORPUSCULAR HEMOGLOBIN 24.8 pg (27.0-33.0); MEAN CORPUSCULAR VOLUME 82.5 fl (80.0-96.0); MONO # 0.7 10^3/uL (0.0-0.8); MONO % 7.9 % (2.0-8.0); NEUTROPHILS # 6.5 10^3/uL (1.5-8.5); NEUTROPHILS % 72.8 % (36.0-66.0); PLATELET COUNT, AUTOMATED 272 10^3/uL (150-450); RED BLOOD COUNT 4.16 10^6/uL (4.30-6.10); WHITE BLOOD COUNT 8.9 10^3/uL (4.0-10.0)
[2021-08-06 08:14] LABS: CALCIUM LEVEL 9.2 MG/DL (8.8-10.2); CREATININE FOR GFR 1.55 MG/DL (0.70-1.30); POTASSIUM SERUM 4.4 MEQ/L (3.5-5.1)
[2021-08-06] MEDS: ACETAMINOPHEN 500 MG TAB PO SCH ×3 (09:00→20:27)
[2021-08-06] MEDS: DOCUSATE SODIUM 100MG CAPSULE PO SCH ×2 (09:38→20:28)
[2021-08-06] MEDS: SPIRONOLACTONE 25 MG TAB PO SCH (09:38)
[2021-08-06] MEDS: LACTOBACILLUS ACIDOPHILUS CAP (BACID) PO SCH ×4 (09:38→20:28)
[2021-08-06] MEDS: ASPIRIN 81MG ENTERIC TABLET PO SCH (09:38)
[2021-08-06] MEDS: MAGNESIUM OXIDE 400MG TAB (MAG-OX) PO SCH ×2 (09:38→20:28)
[2021-08-06] MEDS: PANTOPRAZOLE 40MG TAB (PROTONIX) PO SCH (09:39)
[2021-08-06] MEDS: PRAVASTATIN 20 MG TAB PO SCH (09:39)
[2021-08-06] MEDS: FUROSEMIDE 40 MG TAB PO SCH (09:39)
[2021-08-06] MEDS: REMEDY PHYTOPLEX Z-GUARD PASTE 113GM TUBE (FROM STOREROOM PRODUCT) TOP SCH ×3 (09:40→20:28)
[2021-08-06] MEDS: HEPARIN SOD (PORCINE) 5000UNITS/ML 1ML VIAL/SYRINGE SC SCH ×2 (09:40→20:28)
[2021-08-06 14:00] VITALS: BP 127/62
[2021-08-06 20:00] VITALS: BP 134/71
[2021-08-06] MEDS: SENNA 8.6 MG TAB (SENOKOT) PO SCH (20:27)
[2021-08-06] MEDS: oxyCODONE 5MG TAB PO PRN (20:28)
[2021-08-07] MEDS: LEVOTHYROXINE 25MCG TABLET (0.025MG) PO SCH (05:41)
[2021-08-07] MEDS: LevoFLOXacin 750 MG TABLET PO SCH (05:41)
[2021-08-07 06:00] VITALS: BP 141/63
[2021-08-07] MEDS: HEPARIN SOD (PORCINE) 5000UNITS/ML 1ML VIAL/SYRINGE SC SCH ×2 (10:02→20:45)
[2021-08-07] MEDS: REMEDY PHYTOPLEX Z-GUARD PASTE 113GM TUBE (FROM STOREROOM PRODUCT) TOP SCH ×3 (10:02→20:45)
[2021-08-07] MEDS: FUROSEMIDE 40 MG TAB PO SCH (10:03)
[2021-08-07] MEDS: ASPIRIN 81MG ENTERIC TABLET PO SCH (10:03)
[2021-08-07] MEDS: PRAVASTATIN 20 MG TAB PO SCH (10:03)
[2021-08-07] MEDS: DOCUSATE SODIUM 100MG CAPSULE PO SCH ×2 (10:03→20:44)
[2021-08-07] MEDS: PANTOPRAZOLE 40MG TAB (PROTONIX) PO SCH (10:03)
[2021-08-07] MEDS: MAGNESIUM OXIDE 400MG TAB (MAG-OX) PO SCH ×2 (10:03→20:44)
[2021-08-07] MEDS: LACTOBACILLUS ACIDOPHILUS CAP (BACID) PO SCH ×4 (10:03→20:44)
[2021-08-07] MEDS: SPIRONOLACTONE 25 MG TAB PO SCH (10:04)
[2021-08-07] MEDS: ACETAMINOPHEN 500 MG TAB PO SCH ×3 (10:04→20:45)
[2021-08-07 14:00] VITALS: BP 151/68
[2021-08-07 20:00] VITALS: BP 133/57
[2021-08-07] MEDS: SENNA 8.6 MG TAB (SENOKOT) PO SCH (20:45)
[2021-08-08] MEDS: LEVOTHYROXINE 25MCG TABLET (0.025MG) PO SCH (05:05)
[2021-08-08 07:11] LABS: BASO # 0.1 10^3/uL (0.0-0.2); EOS # 0.4 10^3/uL (0.0-0.5); EOS % 3.8 % (0.0-3.0); HEMATOCRIT 32.3 % (42.0-52.0); HEMOGLOBIN 9.6 g/dl (13.5-17.5); LYMPH # 1.4 10^3/uL (1.5-5.0); MEAN CORPUSCULAR HEMOGLOBIN 24.2 pg (27.0-33.0); MEAN CORPUSCULAR HGB CONC 29.7 g/dl (32.0-36.5); MEAN CORPUSCULAR VOLUME 81.6 fl (80.0-96.0); MONO # 0.7 10^3/uL (0.0-0.8); MONO % 7.4 % (2.0-8.0); NEUTROPHILS # 6.6 10^3/uL (1.5-8.5); NEUTROPHILS % 72.4 % (36.0-66.0); PLATELET COUNT, AUTOMATED 234 10^3/uL (150-450); RED BLOOD COUNT 3.96 10^6/uL (4.30-6.10); WHITE BLOOD COUNT 9.1 10^3/uL (4.0-10.0)
[2021-08-08 07:23] LABS: CREATININE FOR GFR 1.57 MG/DL (0.70-1.30); GLOMERULAR FILTRATION RATE 45.4 (>35); POTASSIUM SERUM 4.4 MEQ/L (3.5-5.1)
[2021-08-08] MEDS: LACTOBACILLUS ACIDOPHILUS CAP (BACID) PO SCH ×4 (08:00→21:28)
[2021-08-08] MEDS: SPIRONOLACTONE 25 MG TAB PO SCH (10:21)
[2021-08-08] MEDS: MAGNESIUM OXIDE 400MG TAB (MAG-OX) PO SCH ×2 (10:21→21:27)
[2021-08-08] MEDS: FUROSEMIDE 40 MG TAB PO SCH (10:22)
[2021-08-08] MEDS: ASPIRIN 81MG ENTERIC TABLET PO SCH (10:22)
[2021-08-08] MEDS: PRAVASTATIN 20 MG TAB PO SCH (10:22)
[2021-08-08] MEDS: PANTOPRAZOLE 40MG TAB (PROTONIX) PO SCH (10:23)
[2021-08-08] MEDS: ACETAMINOPHEN 500 MG TAB PO SCH ×3 (10:23→21:27)
[2021-08-08] MEDS: HEPARIN SOD (PORCINE) 5000UNITS/ML 1ML VIAL/SYRINGE SC SCH ×2 (10:23→21:28)
[2021-08-08] MEDS: DOCUSATE SODIUM 100MG CAPSULE PO SCH ×2 (10:23→21:28)
[2021-08-08] MEDS: ONDANSETRON 4MG TAB PO PRN (10:23)
[2021-08-08] MEDS: MIRALAX *UNIT DOSE* 17GM PACKET PO SCH (13:00)
[2021-08-08] MEDS: REMEDY PHYTOPLEX Z-GUARD PASTE 113GM TUBE (FROM STOREROOM PRODUCT) TOP SCH ×3 (13:01→21:28)
[2021-08-08 20:00] VITALS: BP 124/57
[2021-08-08] MEDS: SENNA 8.6 MG TAB (SENOKOT) PO SCH (21:27)
[2021-08-09 05:29] VITALS: BP 133/75
[2021-08-09] MEDS: LevoFLOXacin 750 MG TABLET PO SCH (05:46)
[2021-08-09] MEDS: LEVOTHYROXINE 25MCG TABLET (0.025MG) PO SCH (05:47)
[2021-08-09] MEDS: ACETAMINOPHEN 500 MG TAB PO SCH ×3 (09:00→20:41)
[2021-08-09] MEDS: PANTOPRAZOLE 40MG TAB (PROTONIX) PO SCH (09:40)
[2021-08-09] MEDS: DOCUSATE SODIUM 100MG CAPSULE PO SCH ×2 (09:40→21:00)
[2021-08-09] MEDS: MIRALAX *UNIT DOSE* 17GM PACKET PO SCH (09:40)
[2021-08-09] MEDS: ASPIRIN 81MG ENTERIC TABLET PO SCH (09:40)
[2021-08-09] MEDS: MAGNESIUM OXIDE 400MG TAB (MAG-OX) PO SCH ×2 (09:40→20:39)
[2021-08-09] MEDS: PRAVASTATIN 20 MG TAB PO SCH (09:40)
[2021-08-09] MEDS: LACTOBACILLUS ACIDOPHILUS CAP (BACID) PO SCH ×4 (09:41→20:39)
[2021-08-09] MEDS: HEPARIN SOD (PORCINE) 5000UNITS/ML 1ML VIAL/SYRINGE SC SCH ×2 (09:41→20:39)
[2021-08-09] MEDS: REMEDY PHYTOPLEX Z-GUARD PASTE 113GM TUBE (FROM STOREROOM PRODUCT) TOP SCH ×3 (09:41→20:41)
[2021-08-09] MEDS: FUROSEMIDE 40 MG TAB PO SCH (09:41)
[2021-08-09] MEDS: SPIRONOLACTONE 25 MG TAB PO SCH (09:41)
[2021-08-09 14:00] VITALS: BP 129/63
[2021-08-09 20:00] VITALS: BP 121/60
[2021-08-09] MEDS: oxyCODONE 5MG TAB PO PRN (20:40)
[2021-08-09] MEDS: SENNA 8.6 MG TAB (SENOKOT) PO SCH (20:41)
[2021-08-10] MEDS: LEVOTHYROXINE 25MCG TABLET (0.025MG) PO SCH (05:47)
[2021-08-10 06:00] VITALS: BP 113/58
[2021-08-10] MEDS: MIRALAX *UNIT DOSE* 17GM PACKET PO SCH (08:16)
[2021-08-10] MEDS: PRAVASTATIN 20 MG TAB PO SCH (08:16)
[2021-08-10] MEDS: DOCUSATE SODIUM 100MG CAPSULE PO SCH ×2 (08:16→21:21)
[2021-08-10] MEDS: FUROSEMIDE 40 MG TAB PO SCH (08:16)
[2021-08-10] MEDS: PANTOPRAZOLE 40MG TAB (PROTONIX) PO SCH (08:16)
[2021-08-10] MEDS: LACTOBACILLUS ACIDOPHILUS CAP (BACID) PO SCH ×4 (08:16→21:21)
[2021-08-10] MEDS: HEPARIN SOD (PORCINE) 5000UNITS/ML 1ML VIAL/SYRINGE SC SCH ×2 (08:16→21:22)
[2021-08-10] MEDS: SPIRONOLACTONE 25 MG TAB PO SCH (08:16)
[2021-08-10] MEDS: MAGNESIUM OXIDE 400MG TAB (MAG-OX) PO SCH ×2 (08:17→21:21)
[2021-08-10] MEDS: ASPIRIN 81MG ENTERIC TABLET PO SCH (08:17)
[2021-08-10] MEDS: ACETAMINOPHEN 500 MG TAB PO SCH ×3 (08:17→21:21)
[2021-08-10] MEDS: REMEDY PHYTOPLEX Z-GUARD PASTE 113GM TUBE (FROM STOREROOM PRODUCT) TOP SCH ×3 (08:17→21:22)
[2021-08-10 14:00] VITALS: BP 115/60
[2021-08-10] MEDS: ONDANSETRON 4MG TAB PO PRN ×2 (14:27→22:02)
[2021-08-10 20:00] VITALS: BP 114/55
[2021-08-10] MEDS: SENNA 8.6 MG TAB (SENOKOT) PO SCH (21:22)
[2021-08-11 06:00] VITALS: BP 122/56
[2021-08-11] MEDS: LEVOTHYROXINE 25MCG TABLET (0.025MG) PO SCH (06:18)
[2021-08-11] MEDS: LevoFLOXacin 750 MG TABLET PO SCH (06:18)
[2021-08-11 07:46] LABS: BASO # 0.1 10^3/uL (0.0-0.2); BASO % 0.6 % (0.0-1.0); EOS # 0.3 10^3/uL (0.0-0.5); EOS % 3.6 % (0.0-3.0); HEMOGLOBIN 9.1 g/dl (13.5-17.5); LYMPH # 1.2 10^3/uL (1.5-5.0); LYMPH % 12.5 % (24.0-44.0); MEAN CORPUSCULAR HEMOGLOBIN 23.8 pg (27.0-33.0); MEAN CORPUSCULAR HGB CONC 29.4 g/dl (32.0-36.5); MEAN CORPUSCULAR VOLUME 80.9 fl (80.0-96.0); MONO # 0.8 10^3/uL (0.0-0.8); MONO % 8.6 % (2.0-8.0); NEUTROPHILS % 74.2 % (36.0-66.0); PLATELET COUNT, AUTOMATED 205 10^3/uL (150-450); RED BLOOD COUNT 3.83 10^6/uL (4.30-6.10); WHITE BLOOD COUNT 9.4 10^3/uL (4.0-10.0)
[2021-08-11 08:11] LABS: CREATININE FOR GFR 2.01 MG/DL (0.70-1.30); GLOMERULAR FILTRATION RATE 34.1 (>35); POTASSIUM SERUM 5.2 MEQ/L (3.5-5.1)
[2021-08-11] MEDS: SPIRONOLACTONE 25 MG TAB PO SCH (09:44)
[2021-08-11] MEDS: PRAVASTATIN 20 MG TAB PO SCH (09:44)
[2021-08-11] MEDS: MAGNESIUM OXIDE 400MG TAB (MAG-OX) PO SCH ×2 (09:44→20:50)
[2021-08-11] MEDS: DOCUSATE SODIUM 100MG CAPSULE PO SCH ×2 (09:44→20:50)
[2021-08-11] MEDS: LACTOBACILLUS ACIDOPHILUS CAP (BACID) PO SCH ×4 (09:44→20:50)
[2021-08-11] MEDS: PANTOPRAZOLE 40MG TAB (PROTONIX) PO SCH (09:44)
[2021-08-11] MEDS: ASPIRIN 81MG ENTERIC TABLET PO SCH (09:44)
[2021-08-11] MEDS: FUROSEMIDE 40 MG TAB PO SCH (09:45)
[2021-08-11] MEDS: HEPARIN SOD (PORCINE) 5000UNITS/ML 1ML VIAL/SYRINGE SC SCH ×2 (09:46→20:50)
[2021-08-11] MEDS: ACETAMINOPHEN 500 MG TAB PO SCH ×3 (09:46→20:51)
[2021-08-11] MEDS: MIRALAX *UNIT DOSE* 17GM PACKET PO SCH (09:46)
[2021-08-11] MEDS: REMEDY PHYTOPLEX Z-GUARD PASTE 113GM TUBE (FROM STOREROOM PRODUCT) TOP SCH ×3 (09:50→20:51)
[2021-08-11] MEDS ORDERED: PATIROMER SORBITEX CALCIUM 8.4 GM POWDER PACKET (VELTASSA) PO ONE (11:00)
[2021-08-11 14:00] VITALS: BP 126/50
[2021-08-11 20:00] VITALS: BP 132/58
[2021-08-11] MEDS: SENNA 8.6 MG TAB (SENOKOT) PO SCH (20:50)
[2021-08-12] MEDS: LEVOTHYROXINE 25MCG TABLET (0.025MG) PO SCH (05:31)
[2021-08-12 06:00] VITALS: BP 138/71
[2021-08-12 10:23] LABS: BLOOD UREA NITROGEN 54 MG/DL (7-18); CALCIUM LEVEL 9.2 MG/DL (8.8-10.2); CARBON DIOXIDE LEVEL 25 MEQ/L (21-32); CHLORIDE LEVEL 104 MEQ/L (98-107); CREATININE FOR GFR 2.03 MG/DL (0.70-1.30); FERRITIN 149 NG/ML (26-388); GLOMERULAR FILTRATION RATE 33.7 (>35); GLUCOSE, FASTING 131 MG/DL (70-100); IRON (FE) 19 UG/DL (65-175); SODIUM LEVEL 137 MEQ/L (136-145); TOTAL IRON BINDING CAPACITY 381 UG/DL (250-450); TOTAL PROTEIN 6.2 GM/DL (6.4-8.2)
[2021-08-12] MEDS: PRAVASTATIN 20 MG TAB PO SCH (10:34)
[2021-08-12] MEDS: MIRALAX *UNIT DOSE* 17GM PACKET PO SCH (10:35)
[2021-08-12] MEDS: DOCUSATE SODIUM 100MG CAPSULE PO SCH ×2 (10:35→20:34)
[2021-08-12] MEDS: FUROSEMIDE 40 MG TAB PO SCH (10:35)
[2021-08-12] MEDS: LACTOBACILLUS ACIDOPHILUS CAP (BACID) PO SCH ×4 (10:35→20:34)
[2021-08-12] MEDS: MAGNESIUM OXIDE 400MG TAB (MAG-OX) PO SCH ×2 (10:35→20:34)
[2021-08-12] MEDS: ASPIRIN 81MG ENTERIC TABLET PO SCH (10:35)
[2021-08-12] MEDS: PANTOPRAZOLE 40MG TAB (PROTONIX) PO SCH (10:36)
[2021-08-12] MEDS: ACETAMINOPHEN 500 MG TAB PO SCH ×3 (10:36→20:34)
[2021-08-12] MEDS: HEPARIN SOD (PORCINE) 5000UNITS/ML 1ML VIAL/SYRINGE SC SCH ×2 (10:37→20:35)
[2021-08-12] MEDS: REMEDY PHYTOPLEX Z-GUARD PASTE 113GM TUBE (FROM STOREROOM PRODUCT) TOP SCH ×3 (10:37→20:35)
[2021-08-12] MEDS ORDERED: BISACODYL 10 MG SUPP PR ONE (13:35)
[2021-08-12 14:00] VITALS: BP 149/63
[2021-08-12] MEDS ORDERED: PATIROMER SORBITEX CALCIUM 8.4 GM POWDER PACKET (VELTASSA) PO ONE (14:00)
[2021-08-12] MEDS: FERROUS GLUCONATE 324 MG TAB PO SCH (14:10)
[2021-08-12 20:00] VITALS: BP 125/60
[2021-08-12] MEDS: SENNA 8.6 MG TAB (SENOKOT) PO SCH (20:34)
[2021-08-13] MEDS: LevoFLOXacin 750 MG TABLET PO SCH (05:24)
[2021-08-13] MEDS: LEVOTHYROXINE 25MCG TABLET (0.025MG) PO SCH (05:24)
[2021-08-13 06:00] VITALS: BP 104/53
[2021-08-13 06:59] LABS: BASO # 0.1 10^3/uL (0.0-0.2); BASO % 0.6 % (0.0-1.0); EOS # 0.3 10^3/uL (0.0-0.5); EOS % 2.8 % (0.0-3.0); HEMATOCRIT 32.6 % (42.0-52.0); HEMOGLOBIN 9.4 g/dl (13.5-17.5); LYMPH % 10.7 % (24.0-44.0); MEAN CORPUSCULAR HEMOGLOBIN 23.4 pg (27.0-33.0); MEAN CORPUSCULAR HGB CONC 28.8 g/dl (32.0-36.5); MEAN CORPUSCULAR VOLUME 81.3 fl (80.0-96.0); MONO # 0.6 10^3/uL (0.0-0.8); MONO % 6.5 % (2.0-8.0); NEUTROPHILS % 78.5 % (36.0-66.0); PLATELET COUNT, AUTOMATED 203 10^3/uL (150-450); RED BLOOD COUNT 4.01 10^6/uL (4.30-6.10); WHITE BLOOD COUNT 8.9 10^3/uL (4.0-10.0)
[2021-08-13 07:19] LABS: CREATININE FOR GFR 2.2 MG/DL (0.70-1.30); GLOMERULAR FILTRATION RATE 30.7 (>35)
[2021-08-13] MEDS: MIRALAX *UNIT DOSE* 17GM PACKET PO SCH (08:52)
[2021-08-13] MEDS: ASPIRIN 81MG ENTERIC TABLET PO SCH (08:52)
[2021-08-13] MEDS: FERROUS GLUCONATE 324 MG TAB PO SCH (08:52)
[2021-08-13] MEDS: HEPARIN SOD (PORCINE) 5000UNITS/ML 1ML VIAL/SYRINGE SC SCH ×2 (08:52→21:16)
[2021-08-13] MEDS: MAGNESIUM OXIDE 400MG TAB (MAG-OX) PO SCH ×2 (08:53→21:16)
[2021-08-13] MEDS: LACTOBACILLUS ACIDOPHILUS CAP (BACID) PO SCH ×4 (08:53→21:16)
[2021-08-13] MEDS: PRAVASTATIN 20 MG TAB PO SCH (08:53)
[2021-08-13] MEDS: DOCUSATE SODIUM 100MG CAPSULE PO SCH ×2 (08:53→21:17)
[2021-08-13] MEDS: PANTOPRAZOLE 40MG TAB (PROTONIX) PO SCH (08:53)
[2021-08-13] MEDS: ACETAMINOPHEN 500 MG TAB PO SCH ×3 (08:53→21:16)
[2021-08-13] MEDS: REMEDY PHYTOPLEX Z-GUARD PASTE 113GM TUBE (FROM STOREROOM PRODUCT) TOP SCH ×3 (08:54→21:17)
[2021-08-13] MEDS: FUROSEMIDE 80 MG TAB PO SCH (08:54)
[2021-08-13] MEDS: ONDANSETRON 4MG TAB PO PRN ×2 (09:08→17:13)
[2021-08-13 11:25] LABS: ALBUMIN 2.96 GM/DL (3.29-5.55); ALBUMIN % 47.7 % (55.8-66.1); ALPHA-1-GLOBULIN % 7.1 % (2.9-4.9); BETA-1-GLOBULINS % 7.6 % (4.7-7.2); BETA-2-GLOBULINS % 7.1 % (3.2-6.5); GAMMA GLOBULIN % 20.5 % (11.1-18.8)
[2021-08-13 11:26] LABS: ALPHA-1-GLOBULINS 0.44 GM/DL (0.17-0.41); ALPHA-2-GLOBULINS 0.62 GM/DL (0.42-0.99); BETA-1-GLOBULINS 0.47 GM/DL (0.28-0.60); BETA-2-GLOBULINS 0.44 GM/DL (0.19-0.55); GAMMA GLOBULINS 1.27 GM/DL (0.65-1.58)
[2021-08-13 14:00] VITALS: BP 113/52
[2021-08-13 20:17] VITALS: BP 133/76
[2021-08-13] MEDS: SENNA 8.6 MG TAB (SENOKOT) PO SCH (21:16)
[2021-08-14 05:30] VITALS: BP 133/55
[2021-08-14] MEDS: LEVOTHYROXINE 25MCG TABLET (0.025MG) PO SCH (05:39)
[2021-08-14] MEDS: DOCUSATE SODIUM 100MG CAPSULE PO SCH (08:38)
[2021-08-14] MEDS: MAGNESIUM OXIDE 400MG TAB (MAG-OX) PO SCH (08:38)
[2021-08-14] MEDS: LACTOBACILLUS ACIDOPHILUS CAP (BACID) PO SCH ×2 (08:38→12:50)
[2021-08-14] MEDS: MIRALAX *UNIT DOSE* 17GM PACKET PO SCH (08:38)
[2021-08-14] MEDS: FUROSEMIDE 80 MG TAB PO SCH (08:39)
[2021-08-14] MEDS: PANTOPRAZOLE 40MG TAB (PROTONIX) PO SCH (08:39)
[2021-08-14] MEDS: ASPIRIN 81MG ENTERIC TABLET PO SCH (08:39)
[2021-08-14] MEDS: ACETAMINOPHEN 500 MG TAB PO SCH (08:39)
[2021-08-14] MEDS: PRAVASTATIN 20 MG TAB PO SCH (08:39)
[2021-08-14] MEDS: FERROUS GLUCONATE 324 MG TAB PO SCH (08:39)
[2021-08-14] MEDS: REMEDY PHYTOPLEX Z-GUARD PASTE 113GM TUBE (FROM STOREROOM PRODUCT) TOP SCH (08:40)
[2021-08-14] MEDS: HEPARIN SOD (PORCINE) 5000UNITS/ML 1ML VIAL/SYRINGE SC SCH (08:40)
[2021-08-14] MEDS ORDERED: ASPI81TA26 PO (10:59)
[2021-08-14] MEDS ORDERED: PANT-23 PO (10:59)
[2021-08-14] MEDS ORDERED: LEVO25TA5 PO (10:59)
[2021-08-14] MEDS ORDERED: FURO80TA2 PO (10:59)
[2021-08-14] MEDS ORDERED: NITR0.4S14 SL (10:59)
[2021-08-14] MEDS ORDERED: RISATAB3 PO (10:59)
[2021-08-14] MEDS ORDERED: PRAV40TA2 PO (10:59)
== END 2021-08-14 14:00 | disposition home health service (06) | DRG 74 ==
LOC: M PM&R 17:15
PROVIDERS: ADMIT Physical Medicine & Rehabilitation; ATTEND Physical Medicine & Rehabilitation
DX: E11.42 Type 2 diabetes mellitus with diabetic polyneuropathy (principal); I50.42 Chronic combined systolic (congestive) and diastolic (congestive) heart failure; I13.0 Hypertensive heart and chronic kidney disease with heart failure and stage 1 through stage 4 chronic kidney disease, or unspecified chronic kidney disease; E11.52 Type 2 diabetes mellitus with diabetic peripheral angiopathy with gangrene; I48.20 Chronic atrial fibrillation, unspecified; Z47.81 Encounter for orthopedic aftercare following surgical amputation; D63.1 Anemia in chronic kidney disease; E11.22 Type 2 diabetes mellitus with diabetic chronic kidney disease; R53.1 Weakness; I25.10 Atherosclerotic heart disease of native coronary artery without angina pectoris; Z95.5 Presence of coronary angioplasty implant and graft; N40.0 Benign prostatic hyperplasia without lower urinary tract symptoms; M19.90 Unspecified osteoarthritis, unspecified site; E03.9 Hypothyroidism, unspecified; K21.9 Gastro-esophageal reflux disease without esophagitis; I73.9 Peripheral vascular disease, unspecified; E11.621 Type 2 diabetes mellitus with foot ulcer; L97.529 Non-pressure chronic ulcer of other part of left foot with unspecified severity; Z87.891 Personal history of nicotine dependence; Z79.82 Long term (current) use of aspirin; Z79.899 Other long term (current) drug therapy; N18.30 Chronic kidney disease, stage 3 unspecified; Z95.2 Presence of prosthetic heart valve; Z66 Do not resuscitate; Z95.0 Presence of cardiac pacemaker; Z89.422 Acquired absence of other left toe(s); I49.5 Sick sinus syndrome; K59.00 Constipation, unspecified